=== PATIENT | female | born 1985 | race Caucasian/White ===

== ENCOUNTER 2025-02-02 22:41 | Emergency (ER) | payer OTHER, SELFPAY ==
[2025-02-02 22:48] VITALS: BP 135/73; PULSE 90; RESP 16; TEMP 36.7; O2SAT 98; BMI 37.8
--- NOTE | 2025-02-02 23:15 | PC.NURSE ---
Asssumed care of pt, presents with urine frequency, pt states approximately 1 hour prior to coming to ED, pt feeling pressure when urinating and frequently going to the restroom in small amounts, aaox4, nad, no pain just discomfort,
[2025-02-02 23:17] LABS: Hematocrit 36.3 % (37.0-47.0); Hemoglobin 12.6 g/dl (12.0-16.0); Imm Gran Pct Auto 0.2 % (0.0-0.4); MANUAL DIFF FLAG NO; Mean Corpuscular HGB Conc 34.7 g/dl (31.0-35.0); Mean Corpuscular Hemoglobin 28.1 pg (27.0-33.0); Mean Corpuscular Volume 80.8 fL (80.0-98.0); Platelet Count 417 X10*3/uL (160-400); Red Blood Count 4.49 X10*6/uL (4.20-5.50); White Blood Count 14.6 X10*3/uL (4.8-10.8)
[2025-02-02 23:18] LABS: Imm Gran Abs Auto 0.03 X10*3/uL (0.00-0.03); Lymphocytes Absolute Auto 3.9 X10*3/uL (1.2-4.9); NRBC Abs Auto 0.000 X10*3/uL (0.0-0.012); NRBC Pct Auto 0.0 /100WBC (0.0-0.2)
[2025-02-02 23:19] LABS: Appearance Urine Clear; Glucose Urine UA Negative (Negative); PH 8.5 (5.0-9.0); Specific Gravity - Urine 1.010 (1.005-1.025); UMIC TRIGGER UACC YES
[2025-02-02 23:23] LABS: UACC Culture Trigger YES
[2025-02-02 23:31] LABS: Alanine Aminotransferase 21 U/L (0-31); Albumin Level 4.1 g/dL (3.5-5.0); Alkaline Phosphatase 108 U/L (39-117); Anion Gap 10 (12-20); Aspartate Amino Transferase 19 U/L (5-31); Blood Urea Nitrogen 15 mg/dL (9-16); Calcium 9.2 mg/dL (8.4-10.2); Carbon Dioxide 24 mmol/L (22-29); Chloride 108 mmol/L (96-108); Creatinine Clr Calc Pharmacy 113.3; Estimated Glomerular Filt Rate > 60; Potassium 4.0 mmol/L (3.3-5.1); Sodium 138 mmol/L (135-145); Total Protein 7.1 g/dL (6.5-8.0)
--- NOTE | 2025-02-02 23:38 | ED.FEMALEGU ---
HPI - Female Genitourinary General Chief complaint: Urogenital-Female Stated complaint: ?UTI Time Seen by Provider: 02/02/25 23:32 Source: patient, RN notes reviewed and old records reviewed Mode of arrival: ambulatory Limitations: no limitations History of Present Illness ED Provider: Agustina MEYER Narrative: 39-year-old female presents for evaluation of burning with urination. She reports her symptoms started a few hours prior to arrival. She denies any flank pain, fevers, chills pain She reports that she feels like she has to urinate frequently but ?only a little bit comes out. ? She has been monogamous with 1 sexual partner. Denies any vaginal bleeding or discharge Related Data Previous Rx's ?Medication ?Instructions ?Recorded cefuroxime axetil 250 mg tablet 250 mg PO Q12H #9 tabs 02/02/25 Allergies Allergy/AdvReac Type Severity Reaction Status Date / Time No Known Allergies Allergy Verified 02/02/25 22:53 pt states no food/medication Allergy Unknown Unknown Uncoded 02/02/25 22:53 a Review of Systems Constitutional: Constitutional: Denies anorexia, Denies body ache(s), Denies chills and Denies fever(s) Eyes: Eyes: Denies blurry vision Cardiovascular: Cardiovascular: Denies chest pain Gastrointestinal: Gastrointestinal: Denies abdominal pain, Denies nausea and Denies vomiting Genitourinary: Genitourinary: Denies hematuria, Reports difficulty voiding, Reports post void dribbling, Reports dysuria, Denies pelvic pain, Reports urinary hesitancy, Reports urinary urgency, Denies vaginal discharge and Denies vaginal pruritus Musculoskeletal: Musculoskeletal: Denies back pain Physical Exam Vital Signs: Vital Signs: Last Vital Signs Temp 98.1 F 02/02/25 22:48 Pulse 90 02/02/25 22:48 Resp 16 02/02/25 22:48 BP 135/73 02/02/25 22:48 Pulse Ox 98 02/02/25 22:48 O2 Del Method Room Air 02/02/25 22:48 BMI result Body Mass Index 37.8 Const: General: healthy appearing, comfortable, no acute distress, alert and awake Nutritional Appearance: well nourished Orientation/consciousness: patient oriented x3 HEENT: Head: Yes normocephalic and Yes atraumatic Eyes: Eyelids: Yes eyelids normal Conjunctivae: conjunctivae normal Sclerae: sclerae normal Corneas: corneas normal Pupils: Equal, round and reactive pupils present EOM: EOMs intact bilaterally Neck: Neck: Yes full ROM Resp: Effort & Inspection: normal respiratory effort, able to speak in complete sentences and not labored Skin: General skin exam: elasticity normal Neuro: General: patient oriented x3 Cranial nerves: Yes Equal, round and reactive pupils present and Yes Bilaterally intact EOM present Cognition (Neuro): normal cognition Medical Decision Making Medical Decision Making [facility] Narrative: 39-year-old female presents for evaluation of UTI symptoms. Her urinalysis is consistent with a UTI. [place] [address] but looking back in her history she does have a chronic leukocytosis. She has no fevers or chills in his symptoms with a started a few hours ago. I have a low suspicion for systemic infection. We will treat with cefuroxime b.i.d. x5 days. She denies any concern for sexually transmitted infections. Renal function is within normal limits Differential Diagnosis Differential Diagnoses: The differential diagnosis associated with the presentation includes UTI Cystitis Pyelonephritis Obstructive uropathy Lab Data [facility] Lab Attestation statement: I reviewed the patient's lab results. Mild leukocytosis. No significant anemia. The patient does have a chronic thrombocytosis. Electrolytes are within normal limits. 02/02/25 23:09 02/02/25 23:10 Labs: Lab Results 02/02/25 02/02/25 Range/Units 23:09 23:10 WBC 14.6 H (4.8-10.8) X10*3/uL RBC 4.49 (4.20-5.50) X10*6/uL Hgb 12.6 (12.0-16.0) g/dl Hct 36.3 L (37.0-47.0) % MCV 80.8 (80.0-98.0) fL MCH 28.1 (27.0-33.0) pg MCHC 34.7 (31.0-35.0) g/dl RDW 14.6 (11.0-16.0) % Plt Count 417 H (160-400) X10*3/uL MPV 10.4 (9.4-12.3) fL Immature Gran % (Auto) 0.2 (0.0-0.4) % Neut % (Auto) 61.0 (45-73) % Lymph % (Auto) 27.0 (20-40) % [place] % (Auto) 8.7 (2-11) % Eos % (Auto) 2.3 (0-4) % Baso % (Auto) 0.8 (0-2) % Lymph # (Auto) 3.9 (1.2-4.9) X10*3/uL [place] # (Auto) 1.3 H (0.1-1.2) X10*3/uL Eos # (Auto) 0.3 (0.0-0.4) X10*3/uL Baso # (Auto) 0.1 (0.0-0.2) X10*3/uL Abs Immat Gran (auto) 0.03 (0.00-0.03) X10*3/uL Absolute Neuts (auto) 8.9 H (2.0-8.3) x10*3/uL Absolute Nucleated RBC 0.000 (0.0-0.012) X10*3/uL Nucleated RBC % (auto) 0.0 (0.0-0.2) /100WBC Sodium 138 (135-145) mmol/L Potassium 4.0 (3.3-5.1) mmol/L Chloride 108 (96-108) mmol/L Carbon Dioxide 24 (22-29) mmol/L Anion Gap 10 L (12-20) BUN 15 (9-16) mg/dL Creatinine 0.67 (0.5-1.4) mg/dL Estim Creat Clear Calc 113.3 Estimated GFR > 60 Random Glucose 95 (60-115) mg/dL Calcium 9.2 (8.4-10.2) mg/dL Total Bilirubin 0.3 (0.0-1.0) mg/dL AST 19 (5-31) U/L ALT 21 (0-31) U/L Alkaline Phosphatase 108 (39-117) U/L Total Protein 7.1 (6.5-8.0) g/dL Albumin 4.1 (3.5-5.0) g/dL Urine Color Yellow Urine Appearance Clear Urine pH 8.5 (5.0-9.0) Ur Specific [place] 1.010 (1.005-1.025) Urine Protein 30 (1+) H (Neg-Trace) mg/dL Urine Glucose (UA) Negative (Negative) mg/dL Urine Ketones Negative (Negative) mg/dL Urine Blood Small (1+) H (Negative) Urine Nitrite Negative (Negative) Ur Leukocyte Esterase Large (3+) H (Negative) Urine RBC >20 H (0-2) /HPF Urine WBC >50 H (0-5) /HPF Ur Squamous Epith Cells 0-2 (0-2) /HPF Urine Bacteria None Seen (None Seen) Hyaline Casts 0-2 (0-2) /LPF Discharge Plan Discharge Clinical Impression: Urinary tract infection Patient Disposition: Home, Self-Care Instructions: Urinary Tract Infection in Women (ED) Additional Instructions: Your urinalysis was consistent with a UTI. Take cefuroxime twice daily for 5 days, your 1st dose was given in the ER. Drink lots of fluids and follow up with your primary doctor Prescriptions: New cefuroxime axetil 250 mg tablet 250 mg PO Q12H Qty: 9 0RF Print Language: German
--- OUTSIDE RECORDS SUMMARY | 2025-02-02 23:55 | XMS_ITS | Clinical Summary ---
Author Organization [facility] Address [address] [place] [phone] Phone Care Team Providers Care Industrial Gas Servicer Name Role Phone Issa Malave MD Primary Care Provider [phone] Social History Tobacco Use Types Packs/Day Years Used Date Smoking Tobacco: Never Assessed Education Answer Date Recorded Are you interested in more education? Not on joel e 04/14/2024 Are you concerned about learning? Not on file 04/14/2024 No 04/14/2024 No 04/14/2024 Digital Access Answer Date Recorded No 04/14/2024 No 04/14/2024 Reliable internet access at home? Not on file 04/14/2024 Device with a working camera? Not on file Comments Unknown Sex and Gender Information Value Date Recorded Sex Assigned at Not on file Legal Sex Female 9:10 PM EDT Gender Identity Not on file Sexual Orientation Not on file Plan of Treatment Health Maintenance Due Date Last Done Comments Adult Td,Tdap Booster 1987 DEPRESSION SCREENING 1999 SMOKING Hx and SMOKELESS TOB ACCO SCREENING 2000 HEPATITIS C SCREENING 2005 HIV ONE-TIME SCREENING (18-6 5 YEARS) 2005 PAP SMEAR 2008 INFLUENZA VACCINE (#1) 2024 COVID-19 VACCINE (2023-2 5 season) 2025 HEPATITIS A VACCINES Aged Out No long er eligible based on patient's age to complete this topic HIB VACCINES Aged Out No longer eligi ble based on patient's age to complete this topic MENINGOCOCCAL VACCINES (ACWY) Aged Out No longer eligible based on patient's age to complete this topic MENINGOCOCCAL VACCINES (B) Aged Out N o longer eligible based on patient's age to complete this topic PNEUMOCOCCAL VACCINES (0-49 years) Aged Out No longer eligible based on patient's age to complete this topic Medical Devices Not on file Care Teams Industrial Gas Servicer Relationship Specialty Start Date End Date Issa Malave MD [address] [place] [id number] PCP - General 02/25/17 Additional Source Comments The information contained in this document represents components of the legal health record. It is not the complete legal health record.[facility]
--- OUTSIDE RECORDS SUMMARY | 2025-02-02 23:55 | XMS_ITS | Encounter Summary ---
Author Organization [facility] Address [address] [place] [address] Care Team Providers Care Brakeshoe Repairer Name Role Phone Issa Malave MD Primary Care Provider [phone] Reason for Visit * Reason Onset Date Comments TEST RESULTS 03/22/2016 Encounter Details Date Type Department Care Team Description 03/22/2016 Telephone Adult Medicine [address] [id number] Susi Horton PA-C TEST RESULTS Social History Tobacco Use Types Packs/Day Years Used Date Smoking Tobacco: Never Smokeless Tobacco: Never Alcohol Use Standard Drinks/Week Comments No 0 (1 standard drink = 0.6 oz pur e alcohol) Sex Assigned at Date Recorded Not on file Job Start Date Occupation Industry Not on file Not on file Not on file documented as of this encounter Miscellaneous Notes * Telephone Encounter - Tara Heath - 03/22/2016 3:12 PM EST Inform patient: ANY URGENT OR ABNORMAL RESULTS WIILL RESULT IN A CALL BACK TO THE PATIENT AZUCENA. Type of test: :X-ray of right foot Date test was performed:03/21/16 Where was the test performed: [facility] – [place] Who ordered this test?: Susi Horton Is the doctor here today?: YES Can the message wait until the doctor returns?: NO IF PATIENT'S PCP IS NOT IN INSTRUCT PATIENT THAT THEY WILL RECEIVE A CALL BACK WHEN THE PCP IS IN THE OFFICE NEXT. documented in this encounter Plan of Treatment Not on file documented as of this encounter Visit Diagnoses Not on filedocumented in this encounter Care Teams Brakeshoe Repairer Relationship Specialty Start Date End Date Issa Malave MD [address] [place] [id number] PCP - General 07/05/08 documented as of this encounter
--- OUTSIDE RECORDS SUMMARY | 2025-02-02 23:55 | XMS_ITS | Encounter Summary ---
Author Organization [facility] Address [address] [place] [address] Care Team Providers Care Counselor Supervisor Name Role Phone Issa Malave MD Primary Care Provider [phone] Encounter Details Date Type Department Care Team Description 01/11/2012 Night Triage Doc Medical Records [address] [place] [address] Abstract, Provider Social History Tobacco Use Types Packs/Day Years Used Date Smoking Tobacco: Never Alcohol Use Standard Drinks/Week Comments No 0 (1 standard drink = 0.6 oz pur e alcohol) Sex Assigned at Date Recorded Not on file Job Start Date Occupation Industry Not on file Not on file Not on file documented as of this encounter Plan of Treatment Not on file documented as of this encounter Visit Diagnoses Not on filedocumented in this encounter Care Teams Counselor Supervisor Relationship Specialty Start Date End Date Issa Malave MD [address] [place], [place] [phone] PCP - General 07/05/08 documented as of this encounter
--- OUTSIDE RECORDS SUMMARY | 2025-02-02 23:55 | XMS_ITS | Encounter Summary ---
Author Organization [facility] Address [address] [place] [address] Care Team Providers Care Java Developer Analyst Name Role Phone Issa Malave MD Primary Care Provider [phone] Encounter Details Date Type Department Care Team Description 11/28/2013 Night Triage Doc Medical Records [address] [place] [address] Abstract, Provider Social History Tobacco Use Types [...] on filedocumented in this encounter Care Teams Java Developer Analyst Relationship Specialty Start Date End Date Issa Malave MD [address] [place], [place] [phone] PCP - General 07/05/08 documented as of this encounter
--- OUTSIDE RECORDS SUMMARY | 2025-02-02 23:55 | XMS_ITS | Encounter Summary ---
Author Organization [facility] Address [address] [place] [address] Care Team Providers Care Rn Field Name Role Phone Issa Malave MD Primary Care Provider [phone] Encounter Details Date Type Department Care Team Description 01/05/2016 [facility] Medical Records [address] [place] [address] Abstract, Provider Social History Tobacco Use Types [...] on filedocumented in this encounter Care Teams Rn Field Relationship Specialty Start Date End Date Issa Malave MD [address] [place], [place] [phone] PCP - General 07/05/08 documented as of this encounter
--- OUTSIDE RECORDS SUMMARY | 2025-02-02 23:55 | XMS_ITS | Clinical Summary ---
Author Organization [address] Address [address] [place] [address] Phone Care Team Providers Care General Manager Name Role Phone Issa Malave MD Primary Care Provider [phone] Allergies Active Allergy Reactions Criticality Noted Date Comments Other 07/01/2012 Food Allergy Going for testing Medications ascorbic acid (VITAMIN C) 500 mg tablet Take 500 mg by mouth daily. Active B complex tablet Take by mouth daily. Active cholecalciferol (VITAMIN D-3) 25 mcg (1,000 unit) capsule Take by mouth daily. Active Active Problems Problem Noted Date Diagnosed Date Idiopathic scoliosis and kyphoscoliosis 05/06/20 24 Overview (05/06/2024): 10 deg 2001, 19 deg 03/16 Female pelvic inflammatory disease 06/25/2021 Overview (05/06/2024): Last Assessment & Plan: Patient instructed to complete the entire course of antibiotics. She was given a prescription for Zofran for nausea associated with the Doxycycline. Discussed that PID can cause scarring of the fallopian tubes, which can cause difficulty becoming and can increase the risk of ectopic . No further follow-up needed unless symptoms return. RTO for annual exam. All questions answered. Breakthrough bleeding 06/15/2021 Overview (05/06/2024): Last Assessment & Plan: Urine test negative. Discussed normal frequency and length of menses Reviewed that yeast infection may have been the cause of the brief vaginal bleeding. Counseled on the effects of stress, changes in sleep, diet, and exercise on the endocrine system GC/CT done today to r/o STI Will proceed with expectant management at this time. If symptoms continue for >3 months patient to return for further evaluation. LLQ pain 06/15/2021 Overview (05/06/2024): Last Assessment & Plan: Discussed potential causes of pelvic pain with the patient including infections, , ovarian cysts, endometriosis, interstitial cystitis, irritable bowel, and MSK etiologies. Pelvic US ordered STAT today to r/o ovarian torsion. GC/CT done again today to r/o infection. Discussed functional ovarian cysts Discussed non-contraceptive benefits of BC, patient declines at this time. Discussed with patient that I am suspicious that she may have PID as she has significant cervical motion tenderness. I would like to get the stat ultrasound to r/o torsion and if negative, will plan to treat for PID empirically. Patient in agreement. All questions answered. Severe obesity (BMI 35.0-39. 9) with comorbidity ([facility] V24, [facility] V28) 05/15/2019 Assessment & Plan (05/19/2024 6:43 PM EST): Patient is to continue following up with her weight management program. Informed patient she is cleared for nutritional and dietary weight loss program. Orders: Lipid panel with reflex to direct LDL; Future Thyroid stimulating hormone with reflex to free t4 and free t3; Future Vitamin B12; Future Vitamin D 25 hydroxy; Future CBC and differential; Future Comprehensive metabolic panel; Future Folate; Future Hemoglobin A1c; Future Thrombocytosis 05/22/2016 Cyst of right ovary 05/16/2016 Eczema 06/08/2012 Epigastric pain 07/20/2009 Overview (05/06/2024): h pylori 9-) other blood test (-), US in ER (-) Attention deficit hyperactivity disorder (ADHD) 05/14/2006 Overview (05/06/2024): adderall 1999, changed to adderall xr 2002 Learning disability 05/14/2006 Overview (05/06/2024): Language-based Learning Disability Immunizations Name Administration Dates Next Due DTP 03/26/1993, 2,10/25/1991,08/24 [id number] (Pentacel) 2mo to less than 5yo 08/25/1991 Hepatitis B Pediatric (Enger ix B; Recombivax HB) to less than 20 yo 06/27/1999,01/24/1999,12/26/1998 Influenza Quadravalent, MDCK , 0.5ml, preservative free (Flucelvax) 6mo and older 02/24/2020,06/24/2018 Influenza trivalent, MDCK, 0 .5mL, preservative free (Flucelvax) 6mo and older 02/07/2024 Influenza trivalent, with pr eservative (Fluzone; Afluria) 6mo and older 01/25/2016,02/25/2012,02/09/2010 MMR, measles mumps and rubel la Live (Priorix; M-M-R II) 12mo and older 01/06/1998,08/25/1991 Meningococcal MCV4P 03/13/2005 OPV 03/26/1993, 2,10/25/1991,08/24 PPD Test 05/22/2016, 6,11/07/2004,05/18,05/26/2002 Td Tetanus diptheria (Tdvax) 7yo and older 07/11/2022,01/06/1998 Tdap Tetanus diptheria acell ular pertussis (Boostrix; Adacel) 7yo and older 04/10/2010 Varicella live (Varivax) 12m o and older 1990 Surgical History Surgery Date Site/Laterality Comments WISDOM TOOTH EXTRACTION PROCEDURE: HISTORICAL WISDOM TEETH EXTRACTION SECTION PROCEDURE: HISTORICAL DELIVERY Medical History Medical History Date Comments Varicella without mention of complication DX:Varicella without mention of complication; COMMENT: age 5 Thrombocytosis 05/22/2016 DX:Thrombocytosi s Family History Medical History Relation Name Comments Other: brain tumor Daughter 1 chemo/rad -inoperable, Ann Baptiste, passed age 7 Hypertension Father Breast cancer Other 1 Neg Hx Colon cancer Other 2 Neg Hx Other: CA Ovary, Cervical Other 3 Ne g Hx Other: gall blader disease Sister 1 Relation Name Status Comments Brother Alive Daughter 1 Daughter 2 Alive 2008; Kaela; brainstem tumor dx'd 2012 Father Alive Mother Alive Other 1 Other 2 Other 3 Sister 1 Sister 2 Alive Sister 3 Alive Son Alive Social History Tobacco Use Types Packs/Day Years Used Date Smoking Tobacco: Never Smokeless Tobacco: Never Alcohol Use Standard Drinks/Week Comments No 0 (1 standard drink = 0.6 oz pur e alcohol) Comments Unknown Sex and Gender Information Value Date Recorded Sex Assigned at Not on file Legal Sex Female 4:33 AM EST Gender Identity Not on file Sexual Orientation Not on file Obstetrics History Last Filed Vital Signs Vital Sign Reading Time Taken Comments Blood Pressure 130/86 05/19/2024 8:16 AM EST Pulse 97 05/19/2024 8:16 AM EST Temperature 36.2 C (97.1 F) 05/19/2024 8:16 AM EST Respiratory Rate 16 05/19/2024 8:16 AM EST Oxygen Saturation 99% 05/19/2024 8:16 AM EST Inhaled Oxygen Concentration - - Weight 91.8 kg (202 lb 6.4 oz) 05/19/2024 8:16 A M EST Height 152.4 cm (5') 05/19/2024 8:16 AM EST Body Mass Index 39.53 05/19/2024 8:16 AM EST Plan of Treatment Health Maintenance Due Date Last Done Comments Cervical Cancer Screening: Pap Smear 06/12/2021 06/12/2018, 06/12/2018, 06/12/2018 Social Influencers of Health Screening 04/20/2022 Influenza Vaccine (#1) 2025 4, 02/24/2020, 03/09/2019, Additional history exists Cholesterol Screening (Lipid Panel) 05/19/2029 05/19/2024, 07/11/2022 DTaP,Tdap,and Td Vaccines (8 - Td or Tdap) 07/11/2032 07/11/2022, 04/10/2010, 01/06/1998, Additional history exists Varicella Vaccines Aged Out 1990 No longer eligible based on patient's age to complete this topic HIB Vaccines Completed 08/25/1991, 08/25/1991 IPV Vaccines Completed 03/26/1993, 12/10, 10/25/1991, Additional history exists MMR Vaccines Completed 01/06/1998, 08/25/1991 Hepatitis B Vaccines Completed 06/27/1999, 01/24/1999, 12/26/1998 Meningococcal ACWY Vaccine Completed 03/13/2005 HIV Screening Completed 06/10/2018 Hepatitis C Screening Completed 06/10/2018 Depression Screening Completed 05/19/2024 COVID-19 Vaccine Discontinued HPV Vaccines Aged Out No longer eligi ble based on patient's age to complete this topic Hepatitis A Vaccines Aged Out No long er eligible based on patient's age to complete this topic Meningococcal B Vaccine Aged Out No l onger eligible based on patient's age to complete this topic Pneumococcal Vaccine: Pediatrics (0 to 5 Years) and At-Risk Patients (6 to 49 Years) Aged Out No longer eligible based on patient's age to complete this topic RSV Immunization Patients Under 20 months Aged Out No longer eligible based on patient's age to complete this topic Procedures Procedure Name Priority Date/Time Associated Diagnosis Comments LIPID PANEL WITH REFLEX TO DIRECT LDL Routine 05/19/2024 9:09 AM EST Encounter for screening for cardiovascular disorders PAP SMEAR Routine 06/12/2018 HEPATITIS C SCREENING Routine 06/10/2018 HIV SCREENING Routine 06/10/2018 from Last 3 Months or Most Recently Relevant to Health Maintenance Results * (ABNORMAL) Lipid panel with reflex to direct LDL (05/19/2024 9:09 AM EST) Cholesterol 209(H) 0 - 200 mg/dL LAB CHEMISTRY METHOD 05/19/2024 1:[address] [facility] Triglycerides 97 0 - 150 mg/dL LAB CHEMISTRY METHOD 05/19/2024 1:[address] [facility] HDL 56 >=40 mg/dL LAB CHEMISTRY METHOD 05/19/2024 1:[address] [facility] LDL Calculated 134(H) 0 - 100 mg/dL LAB CHEMISTRY METHOD 05/19/2024 1:12 PM [facility] VLDL Cholesterol Jez 19.4 mg/dL LAB CHEMISTRY METHOD 05/19/2024 1:[address] [facility] Non HDL Chol. (LDL+VLDL) 153(H) <145 mg/dL LAB CHEMISTRY METHOD 05/19/2024 1:[address] [facility] Chol/HDL Ratio 3.7 0.0 - 4.4 LAB CHEMISTRY METHOD 05/19/2024 1:[address] [facility] Blood Venous blood specimen / Unknown Venipuncture / Unknown 05/19/2024 9:09 AM EST 05/19/2024 9:09 AM EST Shayan Dickerson [employer] LAB BLOOD ORDERABLES Final R esult [facility]) [facility] [address] [place] [address], [place] [phone] * Pap smear (06/12/2018) 06/12/2018 Narrative HISTORICAL TESTING LAB RESULTING AGENCY - 06/16/2018 11:57 AM EST [id number] THINPREP PAP, IMAGED: NEGATIVE FOR SQUAMOUS INTRAEPITHELIAL LESION AND MALIGNANCY . KAREN RANGEL(ASCP) (CASE ELECTRONICALLY SIGNED 06 16 2018) RESULT OF APTIMA HIGH RISK HPV ASSAY: HIGH RISK HPV: NEGATIVE (SEROTYPES 16,18,31,33,35,39,45,51,52,56,58,59,66,68) COMPLETED ON 2018-06-16 ADEQUACY: SATISFACTORY ENDOCERVICAL/TRANSFORMATION ZONE COMPONENT PRESENT. SOURCE: THINPREP PAP HPV ANY DX: REFLEX 16 AND 18, CERVICAL, IMAGED CLINICAL INFORMATION: HPV ANY DIAGNOSIS. Z12.4, Z01.419 us Ashlyn ANDERSONM LAB CYTOLOGY ORDERABLES Final R esult HISTORICAL TESTING LAB RESULTING AGENCY * HIV Screening (06/10/2018) HIV Screening Abstracted Historical Provider HEALTH MAINTENANCE Final Result * Hepatitis C Screening (06/10/2018) HM Hepatitis C Screening Abstracted Historical Provider HEALTH MAINTENANCE Final Result from Last 3 Months or Most Recently Relevant to Health Maintenance Insurance [place] [facility] Care Teams General Manager Relationship Specialty Start Date End Date Issa Malave MD [address] [place] [address] PCP - General 11/17/07
--- OUTSIDE RECORDS SUMMARY | 2025-02-02 23:55 | XMS_ITS | Encounter Summary ---
Author Organization [facility] Address [address] [place] [address] Care Team Providers Care Development Editor Name Role Phone Issa Malave MD Primary Care Provider [phone] Encounter Details Date Type Department Care Team Description 02/12/2009 Night Triage Doc Medical Records [address] [place] [address] Abstract, Provider Social History Tobacco Use Types [...] on filedocumented in this encounter Care Teams Development Editor Relationship Specialty Start Date End Date Issa Malave MD [address] [place], [place] [phone] PCP - General 07/05/08 documented as of this encounter
--- OUTSIDE RECORDS SUMMARY | 2025-02-02 23:55 | XMS_ITS ---
Author Name [facility] Organization Unknown Care Team Organization Name Specialty Phone Email Start Date End Da jodee [facility] Malave Primary Care 03/19/2022 12/29/2023
--- OUTSIDE RECORDS SUMMARY | 2025-02-02 23:55 | XMS_ITS | Encounter Summary ---
Author Organization [facility] Address [address] [place] [address] Care Team Providers Care Director Of Services Name Role Phone Issa Malave MD Primary Care Provider [phone] Encounter Details Date Type Department Care Team Description 08/19/2013 Cardiology Procedure Cardiology - [address] [address] Social History Tobacco Use Types Packs/Day Years Used Date Smoking Tobacco: Never Smokeless Tobacco: Never Alcohol Use Standard Drinks/Week Comments No 0 (1 standard drink = 0.6 oz pur e alcohol) Sex Assigned at Date Recorded Not on file Job Start Date Occupation Industry Not on file Not on file Not on file documented as of this encounter Procedure Notes * Marco Nix - 08/19/2013 7:43 AM EDT Patient Name: RUPALI BOLANOS [facility] Cardiology Department Date of Service: HOLTER MONITOR The indication is syncope. The predominant rhythm is normal sinus rhythm. The minimum heart rate is 68. The average heart rateis 94 beats per minute. The maximum heart rate is 155 beats per minute. There were rare PACs and PVCs. No runs of atrial fibrillation, flutter or ventricular tachycardia were seen. No symptoms were reported. This patient is 28 years old, but the average heart rate is elevated at 94 beats per minute. IMPRESSION: No significant arrhythmias, no significant symptoms, but an average heart rate that is mildly elevated for this patient's age. Marco Nix MD cc: / documented in this encounter Plan of Treatment Not on file documented as of this encounter Visit Diagnoses Not on filedocumented in this encounter Care Teams Director Of Services Relationship Specialty Start Date End Date Issa Malave MD [address] [place] [id number] PCP - General 07/05/08 documented as of this encounter
--- OUTSIDE RECORDS SUMMARY | 2025-02-02 23:55 | XMS_ITS | Encounter Summary ---
Author Organization [facility] Address [address] [place] [address] Care Team Providers Care Health Education Specialist Name Role Phone Issa Malave MD Primary Care Provider [phone] Encounter Details Date Type Department Care Team Description 03/22/2015 Release of Information Medical Records [address] [place] [address] Abstract, Provider Social History Tobacco Use Types [...] on filedocumented in this encounter Care Teams Health Education Specialist Relationship Specialty Start Date End Date Issa Malave MD [address], [place] [id number] PCP - General 07/05/08 documented as of this encounter
--- OUTSIDE RECORDS SUMMARY | 2025-02-02 23:55 | XMS_ITS | Encounter Summary ---
Author Organization [facility] Address [address] [place] [address] Care Team Providers Care Practice Business Asst Name Role Phone Issa Malave MD Primary Care Provider [phone] Encounter Details Date Type Department Care Team Description 05/21/2018 Pt. Non Urgent Medic al Question Adult Medicine [address] [address] Nehal Sorto MD Social History Tobacco Use Types Packs/Day Years Used Date Smoking Tobacco: Never Smokeless Tobacco: Never Alcohol Use Standard Drinks/Week Comments No 0 (1 standard drink = 0.6 oz pur e alcohol) Sex Assigned at Date Recorded Not on file Job Start Date Occupation Industry Not on file Not on file Not on file documented as of this encounter Progress Notes * Johnna Torres M.A. - 05/21/2018 4:55 PM ESTFrom: Rupali Aguilar Bolanos To: Nehal Schreer MD Sent: 05/21/2018 4:49 PM EST Subject: Results? Hi i just wanted to know if my blood counts gave any news for the unexplained rash? documented in this encounter Plan of Treatment Not on file documented as of this encounter Visit Diagnoses Not on filedocumented in this encounter Care Teams Practice Business Asst Relationship Specialty Start Date End Date Issa Malave MD [address] [place] [id number] PCP - General 07/05/08 documented as of this encounter
[2025-02-03 00:30] VITALS: BP 135/73; PULSE 90; RESP 16; TEMP 36.7; O2SAT 98
== END 2025-02-03 00:30 | disposition home or self-care (01) ==
PROVIDERS: Emergency Provider Student in an Organized Health Care Education/Training Program; PCP Internal Medicine
DX: N39.0 Urinary tract infection, site not specified (principal)
CPT/HCPCS: 36415; 80053; 81001; 85025; 87086; 87088; 87147; 87186; 99283; 99284

== ENCOUNTER 2025-03-27 20:18 | Inpatient (IN) | payer OTHER, SELFPAY ==
--- NOTE | ~2025-03-27 | FL_ITS ---
EXAMINATION: FL GUIDANCE ONLY HISTORY: ERCP COMPARISON: Correlation is made with an abdominal ultrasound dated 03/27/2025. TECHNIQUE: Fluoroscopy time: 2 minutes, 11 seconds. Cumulative Dose: 34.60 mGy. DAP: 1142.52 uGym2 Images: 7. FINDINGS: Fluoroscopic spot films from an ERCP demonstrate a normal caliber common bile duct. A rounded filling defect may represent an air bubble. The final film demonstrates a stent in place. FL/FL guidance in OR IMPRESSION: Fluoroscopy during procedure. Please see procedure report for additional information. Electronically signed by: Manjit Gilliland MD 04/01/2025 07:22 AM JEAN
--- NOTE | ~2025-03-27 | US_ITS ---
CLINICAL HISTORY: epigastric pain rad to back --- Additional Notes or Special Instructions: look at GB, ducts, liver, pancreas US abdomen limited Comparison: None provided Findings: The visualized pancreas is normal. The aorta and inferior vena cava are normal caliber. The liver is normal in size and echotexture. There is no intrahepatic bile duct dilatation. The common duct is 2 mm in diameter. Mildly distended gallbladder with a 2.6 cm impacted stone at the neck. Moderate amount of sludge is noted. No sonographic Luevano's sign. Ring down artifacts at the fundus suggestive of adenomyomatosis. The main portal vein is antegrade. No ascites. IMPRESSION: Impacted 2.6 cm stone in the neck. No significant pericholecystic fluid, or wall thickening. No sonographic Luevano's sign. Adenomyomatosis. This document has been electronically signed by: Rach Phillips MD on 03/27/2025 22:19:28
--- NOTE | 2025-03-27 20:21 | ED.GENADULT ---
HPI - General Adult General Chief complaint: Abdominal Pain Stated complaint: Stomach Pain Time Seen by Provider: 03/27/25 20:38 History of Present Illness ED Provider: roxanna HPI narrative: Author / Clinician: Nabeel Wilde MD Subjective Chief Complaint: My belly's been hurting for four days. History of Present Illness: The patient presents with abdominal pain that has been ongoing for four days. The pain worsened yesterday morning after eating a cheese sandwich. The pain is located in the right upper abdomen and is reported to worsen after eating. Associated symptom includes vomiting. The patient has a known history of gallstones. Review of Systems: ? Gastrointestinal: Positive for abdominal pain and vomiting. No additional systems reviewed during this encounter. Objective Vital Signs: Physical Exam: Abdomen: Tenderness to palpation in the right upper quadrant. No other TTP Laboratory data relevant for visit: Imaging data relevant for visit: Assessment & Plan The patient is a known gallstone patient presenting with acute right upper quadrant abdominal pain and vomiting, likely biliary in origin. Further evaluation is warranted. Problem #1: Right Upper Quadrant Abdominal Pain / History of Gallstones Assessment: Acute RUQ abdominal pain with associated vomiting in a patient with known gallstones. Physical exam significant for RUQ tenderness. Plan: - Order abdominal ultrasound to evaluate gallbladder and biliary tract. - Obtain basic laboratory work (CBC, CMP, lipase as indicated). - Administer pain medication as needed for comfort. - Reassess once imaging and laboratory results are available and determine further management. Related Data Home Medications ?Medication ?Instructions ?Recorded ?Confirmed acetaminophen 325 mg capsule 325 mg PO QID PRN Pain 03/28/25 03/28/25 ascorbic acid (vitamin C) 1,000 mg 1,000 mg PO DAILY 03/28/25 03/28/25 tablet (Vitamin C) ibuprofen 200 mg tablet 200 mg PO Q6H PRN Pain 03/28/25 03/28/25 Allergies Allergy/AdvReac Type Severity Reaction Status Date / Time No Known Allergies Allergy Verified 03/29/25 11:01 [facility] Past Medical History Medical History (Updated 03/29/25 @ 11:01 by Cyndy Bailey RN) History of seizures as a child Surgical History (Updated 03/29/25 @ 11:00 by Cyndy Bailey RN) Hx of wisdom tooth extraction Hx of section Social History Social History Household Members: Family Housing: House Are you a primary day care home mother to a significant other at home: No Do you presently have visiting nurse or other home services: No Unable to assess alcohol history related to: Unknown Alcohol intake: never Patient Tobacco Use Status: Never used Tobacco Smoked in Last 30 Days: No Use of substances other than those prescribed or required for medical reasons: No Currently Displaying Signs/Symptoms of Drug Intoxication Withdrawal: No Have you been hit, kicked, punched, or otherwise hurt by someone within the past year? If so, by whom?: No Do you feel safe in your current relationship?: Yes Is there a partner from a previous relationship who is making you feel unsafe now?: No Are you made to feel afraid or neglected: No Are you DNR?: No Advance Directives: No Advance Directives Information Provided: No Do you have a plan to hurt others: No Plan Recently lost weight without trying: No How much weight loss: Not applicable Eating poorly because of decreased appetite: No Nutrition screen score: 0 Nutrition Risks: No Nutritional Risk Patient : No FDLMP: 3 weeks ago : No Poor oral hygiene: No service: No Physical Exam ED Vital Signs: Vital Signs - 24 hr 03/27/25 20:22 Temperature 98.1 F Pulse Rate 101 H Respiratory Rate 20 Blood Pressure 139/88 Pulse Oximetry 99 Oxygen Delivery Method Room Air BMI result Body Mass Index 38.4 Course Course Course Narrative: This is a Rapid Medical Examination (RME) performed by Elyssa Anthony PA-C in triage. Full HPI, ROS, assessment and treatment plan per primary provider in the Main ED. Hx: 39 yo F here for eval of intermittent epigastric pain radiating to her back with eating. +N/V. taking motrin at home w/ temporary relief. Plan: labs, US Medications Administered Generic Name Dose Route Start Last Admin Trade Name Freq PRN Reason Stop Dose Admin Acetaminophen 650 mg 03/27/25 22:41 03/28/25 07:51 Acetaminophen 325 Mg Tablet PO 650 mg Q6H PRN Administration Pain, Mild 1-3,fever,headache Sodium Chloride 1,000 mls @ 100 mls/hr 03/27/25 22:45 03/29/25 07:54 Ns IVCONT 100 mls/hr .Q10H WENDY Administration Piperacillin Sod/Tazobactam 50 mls @ 100 mls/hr 03/28/25 08:00 03/29/25 08:25 Sod 3.375 gm/ Sodium Chloride IV Infused Q6H WENDY Infusion Lactated Ringer's 1,000 mls @ 100 mls/hr 03/29/25 10:30 03/29/25 10:53 Lr IVCONT 100 mls/hr .Q10H WENDY Administration Ondansetron HCl 4 mg 03/27/25 22:41 03/29/25 00:28 Ondansetron Hcl 4 Mg/2 Ml Vial IVPUSH 4 mg Q8H PRN Administration Nausea and Vomiting Sodium Chloride 3 ml 03/28/25 00:00 03/29/25 07:57 0.9 % Sodium Chloride Flush 3 Ml Syringe IVFLUSH Not Given QSHIFT WENDY Discontinued Medications Generic Name Dose Route Start Last Admin Trade Name Freq PRN Reason Stop Dose Admin Lactated Ringer's 1,000 mls @ 125 mls/hr 03/27/25 22:30 03/28/25 05:42 Lr IVCONT Infused .Q8H WENDY Infusion Ketorolac Tromethamine 10 mg 03/27/25 22:02 03/27/25 22:18 Ketorolac Tromethamine 15 Mg/Ml Vial IVPUSH 03/27/25 22:03 10 mg ONCE ONE Administration Morphine Sulfate 4 mg 03/27/25 22:02 03/27/25 22:20 Morphine Sulfate 4 Mg/Ml Cartridge IVPUSH 03/27/25 22:03 4 mg ONCE ONE Administration Protocol Medical Decision Making Medical Decision Making [facility] Narrative: Right upper quadrant tenderness with impacted gallstone no sepsis criteria met. Consultation: Discussion with on-call general surgeon who has accepted the patient for admission likely operation in the morning NPO status Differential Diagnosis Differential Diagnoses: The differential diagnosis associated with the presentation includes gastritis, PUD, biliary colic, hepatitis, hiatal hernia, enteritis Lab Data [facility] Lab Attestation statement: I reviewed the patient's lab results. 03/29/25 09:22 03/29/25 09:22 Labs: Lab Results 03/27/25 Range/Units 20:30 WBC 13.5 H (4.8-10.8) X10*3/uL RBC 5.00 (4.20-5.50) X10*6/uL Hgb 13.7 (12.0-16.0) g/dl Hct 41.5 (37.0-47.0) % MCV 83.0 (80.0-98.0) fL MCH 27.4 (27.0-33.0) pg MCHC 33.0 (31.0-35.0) g/dl RDW 13.9 (11.0-16.0) % Plt Count 486 H (160-400) X10*3/uL MPV 10.9 (9.4-12.3) fL Immature Gran % (Auto) 0.3 (0.0-0.4) % Neut % (Auto) 58.6 (45-73) % Lymph % (Auto) 28.8 (20-40) % Haralson % (Auto) 9.0 (2-11) % Eos % (Auto) 2.6 (0-4) % Baso % (Auto) 0.7 (0-2) % Lymph # (Auto) 3.9 (1.2-4.9) X10*3/uL Haralson # (Auto) 1.2 (0.1-1.2) X10*3/uL Eos # (Auto) 0.4 (0.0-0.4) X10*3/uL Baso # (Auto) 0.1 (0.0-0.2) X10*3/uL Abs Immat Gran (auto) 0.04 H (0.00-0.03) X10*3/uL Absolute Neuts (auto) 7.9 (2.0-8.3) x10*3/uL Absolute Nucleated RBC 0.000 (0.0-0.012) X10*3/uL Nucleated RBC % (auto) 0.0 (0.0-0.2) /100WBC Sodium 139 (135-145) mmol/L Potassium 4.1 (3.3-5.1) mmol/L Chloride 110 H (96-108) mmol/L Carbon Dioxide 22 (22-29) mmol/L Anion Gap 11 L (12-20) BUN 14 (9-16) mg/dL Creatinine 0.69 (0.5-1.4) mg/dL Estim Creat Clear Calc 111.0 Estimated GFR > 60 Random Glucose 94 (60-115) mg/dL Calcium 9.5 (8.4-10.2) mg/dL Magnesium 2.1 (1.6-2.6) mg/dL Total Bilirubin 0.2 (0.0-1.0) mg/dL Direct Bilirubin < 0.2 (0.0-0.5) mg/dL AST 6 (5-31) U/L ALT 20 (0-31) U/L Alkaline Phosphatase 116 (39-117) U/L Total Protein 7.6 (6.5-8.0) g/dL Albumin 4.2 (3.5-5.0) g/dL Lipase 28 (8-78) U/L Beta HCG, Quant < 2 mIU/mL Radiology Impression Discussion of test interpretation with radiology: I have reviewed the radiologist's reading. Independent Historian Clinical information obtained from an independent historian. History obtained from or confirmed by: Spouse Prescription Management I considered prescription management with: Pain Medication Discharge Plan Discharge Clinical Impression: RUQ abdominal pain, Impacted gallstone of gallbladder Patient Disposition: Admitted As Inpatient Interventions: Admission Worksheet (ED) Last Done: 03/28/25 04:48 Discharge Date/Time: 03/28/25 05:21
[2025-03-27 20:22] VITALS: BP 139/88; PULSE 101; RESP 20; TEMP 36.7; O2SAT 99; BMI 38.4
[2025-03-27 20:35] LABS: Hematocrit 41.5 % (37.0-47.0); Hemoglobin 13.7 g/dl (12.0-16.0); Imm Gran Abs Auto 0.04 X10*3/uL (0.00-0.03); Imm Gran Pct Auto 0.3 % (0.0-0.4); Lymphocytes Absolute Auto 3.9 X10*3/uL (1.2-4.9); MANUAL DIFF FLAG NO; Mean Corpuscular HGB Conc 33.0 g/dl (31.0-35.0); Mean Corpuscular Hemoglobin 27.4 pg (27.0-33.0); Mean Corpuscular Volume 83.0 fL (80.0-98.0); NRBC Abs Auto 0.000 X10*3/uL (0.0-0.012); NRBC Pct Auto 0.0 /100WBC (0.0-0.2); Platelet Count 486 X10*3/uL (160-400); Red Blood Count 5.00 X10*6/uL (4.20-5.50); White Blood Count 13.5 X10*3/uL (4.8-10.8)
[2025-03-27 20:55] LABS: Alanine Aminotransferase 20 U/L (0-31); Albumin Level 4.2 g/dL (3.5-5.0); Alkaline Phosphatase 116 U/L (39-117); Anion Gap 11 (12-20); Aspartate Amino Transferase 6 U/L (5-31); Blood Urea Nitrogen 14 mg/dL (9-16); Calcium 9.5 mg/dL (8.4-10.2); Carbon Dioxide 22 mmol/L (22-29); Chloride 110 mmol/L (96-108); Creatinine Clr Calc Pharmacy 111.0; Estimated Glomerular Filt Rate > 60; Lipase 28 U/L (8-78); Magnesium 2.1 mg/dL (1.6-2.6); Potassium 4.1 mmol/L (3.3-5.1); Sodium 139 mmol/L (135-145); Total Protein 7.6 g/dL (6.5-8.0)
--- OUTSIDE RECORDS SUMMARY | 2025-03-27 21:12 | XMS_ITS | Clinical Summary ---
Author Organization [facility] Address [address] [facility] [address] [place] [phone] Phone Care Team Providers Care Director Global Medical Affairs Name Role Phone Issa Malave MD Primary Care Provider [phone] Social History Tobacco Use Types Packs/Day Years [...] 2008 INFLUENZA VACCINE (#1) 2024 COVID-19 VACCINE (2024-2 6 season) 2025 HEPATITIS A VACCINES Aged Out No long er eligible based on patient's age to complete this topic HIB VACCINES Aged Out No longer eligi ble based on patient's age to complete this topic IPV VACCINES Aged Out No longer eligi ble [...] Medical Devices Not on file Care Teams Director Global Medical Affairs Relationship Specialty Start Date End Date Issa Malave MD [address] [place] [id number] PCP - General 02/25/17 Additional Source Comments The information contained in this document represents components of the legal health record. It is not the complete legal health record.[facility]
--- OUTSIDE RECORDS SUMMARY | 2025-03-27 21:12 | XMS_ITS | Clinical Summary ---
Author Organization [address] Address [address] [place] [address] Phone Care Team Providers Care Resident Care Assistant Name Role Phone Issa Malave MD Primary Care Provider [phone] Allergies Active Allergy Reactions Criticality Noted Date [...] Overview (05/06/2024): 10 deg 2001, 19 deg 11 Female pelvic inflammatory disease 06/25/2021 Overview (05/06/2024): [...] Severe obesity (BMI 35.0-39. 9) with comorbidity ([facility] V24, [facility] V28) 05/15/2019 Assessment & Plan (05/19/2024 6:43 [...] 05/14/2006 Overview (05/06/2024): Language-based Learning Disability Immunizations Immunization Administration Dates Next Due DTP 03/26/1993, 2,10/25/1991,08/24 [id number] (Pentacel) 2mo to less than 5yo 08/25/1991 [...] Health Maintenance Due Date Last Done Comments HPV Vaccines (1 - 3-dose SCDM series) 2014 Cervical Cancer Screening: Pap Smear 06/12/2021 06/12/2018, 06/12/2018, 06/12/2018 Social Influencers of Health Screening 04/20/2022 Influenza Vaccine (#1) 2025 4, 02/24/2020, 03/09/2019, Additional history exists Cholesterol Screening (Lipid Panel) 05/19/2029 05/19/2024, 07/11/2022 DTaP,Tdap,and Td Vaccines (8 - Td or Tdap) 07/11/2032 07/11/2022, 04/10/2010, 01/06/1998, Additional history exists RSV Immunization Adult Patients (1 - 1-dose 75+ series) 2062 Varicella Vaccines Aged Out 1990 No longer eligible based on patient's age to complete this topic HIB Vaccines Completed 08/25/1991, 08/25/1991 IPV Vaccines Completed 03/26/1993, 12/10, 10/25/1991, Additional history exists MMR Vaccines Completed 01/06/1998, 08/25/1991 Hepatitis B Vaccines Completed 06/27/1999, 01/24/1999, 12/26/1998 Meningococcal ACWY Vaccine Completed 03/13/2005 HIV Screening Completed 06/10/2018 Hepatitis C Screening Completed 06/10/2018 Depression Screening Completed 05/19/2024 COVID-19 Vaccine Discontinued Hepatitis A Vaccines Aged Out No long [...] LAB CHEMISTRY METHOD 05/19/2024 1:12 PM EST [facility] Triglycerides 97 0 - 150 mg/dL LAB CHEMISTRY METHOD 05/19/2024 1:12 PM EST [facility] HDL 56 >=40 mg/dL LAB CHEMISTRY METHOD 05/19/2024 1:12 PM EST [facility] LDL Calculated 134(H) 0 - 100 mg/dL LAB CHEMISTRY METHOD 05/19/2024 1:12 PM EST [facility] VLDL Cholesterol Jez 19.4 mg/dL LAB CHEMISTRY METHOD 05/19/2024 1:12 PM EST [facility] Non HDL Chol. (LDL+VLDL) 153(H) <145 mg/dL LAB CHEMISTRY METHOD 05/19/2024 1:12 PM EST [facility] Chol/HDL Ratio 3.7 0.0 - 4.4 LAB CHEMISTRY METHOD 05/19/2024 1:12 PM EST [facility] Blood Venous blood specimen / Unknown Venipuncture / Unknown 05/19/2024 9:09 AM EST 05/19/2024 9:09 AM EST Shayan Dickerson BLOCK [facility] LAB BLOOD ORDERABLES Final R esult [facility] [address] [place] [address], [place] [phone] * Pap smear (06/12/2018) 06/12/2018 Narrative HISTORICAL TESTING LAB RESULTING AGENCY - 06/16/2018 11:57 AM EST [id number] THINPREP PAP, IMAGED: NEGATIVE FOR SQUAMOUS INTRAEPITHELIAL LESION AND MALIGNANCY . KAREN RANGEL(ASCP) (CASE ELECTRONICALLY SIGNED 06 16 2018) RESULT OF APTIMA HIGH RISK HPV ASSAY: HIGH RISK HPV: NEGATIVE (SEROTYPES 16,18,31,33,35,39,45,51,52,56,58,59,66,68) COMPLETED ON 2018-06-16 ADEQUACY: SATISFACTORY ENDOCERVICAL/TRANSFORMATION ZONE COMPONENT PRESENT. SOURCE: THINPREP PAP HPV ANY DX: REFLEX 16 AND 18, CERVICAL, IMAGED CLINICAL INFORMATION: HPV ANY DIAGNOSIS. Z12.4, Z01.419 Ashlyn Mujica CNM LAB CYTOLOGY ORDERABLES Final R esult HISTORICAL TESTING LAB RESULTING AGENCY * HIV Screening (06/10/2018) HIV Screening Abstracted Historical Provider HEALTH MAINTENANCE Final Result * Hepatitis C Screening (06/10/2018) Hepatitis C Screening Abstracted Historical Provider HEALTH MAINTENANCE Final Result from Last 3 Months or Most Recently Relevant to Health Maintenance Insurance Care Teams Resident Care Assistant Relationship Specialty Start Date End Date Issa Malave MD [address] [place] [address] PCP - General 11/17/07
[2025-03-27] MEDS: Lactated Ringers 1,000 ML 125 ML IVCONT (22:28)
[2025-03-28 04:13] VITALS: BP 113/75; PULSE 78; RESP 16; TEMP 36.7; O2SAT 100
--- NOTE | 2025-03-28 04:43 | HO.NURTONUR ---
PT is a 39 y/o Female that presented to the ED for RUQ Abdominal and epigastric pain that radiates to the back x2 days, c/o nausea denies vomiting, CT ABD/PELVIS showed acute 2.6 cm impacted stone at the neck of the gallbladder, pt is aaox4, nad, VSS 20g Right forearm, pt has NPO since midnight, and currently runnuing NS @100 mL/Hr
[2025-03-28 05:21] VITALS: BMI 39.4
[2025-03-28 05:27] VITALS: BP 140/60; PULSE 87; RESP 16; TEMP 36.3; O2SAT 99
--- NOTE | 2025-03-28 06:01 | PC.NURSE ---
pt seen in bed upon admission. calm and pleasant, no reports of pain.
--- NOTE | 2025-03-28 07:25 | PM.HPGS ---
History of Present Illness History of Present Illness Date of Service: 03/28/25 <Marco Berry PA-C - Last Filed: 03/28/25 10:37> 03/28/25 <Naga Ann MD - Last Filed: 03/28/25 14:17> Chief complaint: Abdo pain <Marco Berry PA-C - Last Filed: 03/28/25 10:37> Narrative: Rupali Roberts is a 39 year old female who presented to the ED with a 4 day history of RUQ pain with associated nausea and vomiting. She reports the pain is often brought on by eating. States after meals she gets a stabbing pain in the RUQ/epigastric area that radiates to her back. There is a remote history of this happening in the past but is now becoming more frequent and happened that past 4 days when eating. She rates the pain 9/10. Workup in the ED significant for mild leukocytosis of 14.5, no electrolyte abnormalities. Liver enzymes WNL. Abdominal ultrasounds significant for a 2.3 cm impacted stone in the neck without wall thickening or or pericholecystic fluid. Gallbladder was mildly distended. There was no CBD duct dilation. There was a suggestion of adenomyomytosis. Negative sonographic murphys sign. She denies significant medical history, denies history of DM, cardiac history. Denies daily medications aside from vitamins. Surgical history significant for C section in 2010, wisdom teeth. She denies use of alcohol, cigarettes, drug use. Today feeling improved. pain now a 0/10 at rest. Denies nausea or vomiting. <Marco Berry PA-C - Last Filed: 03/28/25 10:37> COUNT INCLUDES THE [facility] Social History Social History: Social History Household Members: Family Housing: House Do you presently have visiting nurse or other home services: No Unable to assess alcohol history related to: Unknown Alcohol intake: never Patient Tobacco Use Status: Never used Tobacco Smoked in Last 30 Days: No Use of substances other than those prescribed or required for medical reasons: No Currently Displaying Signs/Symptoms of Drug Intoxication Withdrawal: No Have you been hit, kicked, punched, or otherwise hurt by someone within the past year? If so, by whom?: No Do you feel safe in your current relationship?: Yes Is there a partner from a previous relationship who is making you feel unsafe now?: No Are you made to feel afraid or neglected: No Advance Directives: No Advance Directives Information Provided: No Do you have a plan to hurt others: No Plan Recently lost weight without trying: No How much weight loss: Not applicable Eating poorly because of decreased appetite: No Nutrition screen score: 0 Nutrition Risks: No Nutritional Risk Patient : No : No Poor oral hygiene: No service: No <Marco Berry PA-C - Last Filed: 03/28/25 10:37> Meds Allergies/Adverse reactions: Allergies Allergy/AdvReac Type Severity Reaction Status Date / Time No Known Allergies Allergy Verified 03/27/25 20:24 pt states no food/medication Allergy Unknown Unknown Uncoded 03/27/25 20:24 a <Marco Berry PA-C - Last Filed: 03/28/25 10:37> Active Medications: Current Medications Acetaminophen (Acetaminophen 325 Mg Tablet) 650 mg PO Q6H PRN PRN Reason: Pain, Mild 1-3,fever,headache Sodium Chloride (Ns) 1,000 mls @ 100 mls/hr IVCONT .Q10H [facility] Last Admin: 03/28/25 02:05 Dose: 100 mls/hr Morphine Sulfate (Morphine Sulfate 4 Mg/Ml Cartridge) 4 mg IVPUSH Q4H PRN; Protocol PRN Reason: Pain, Severe (Pain Scale 7-10) Ondansetron HCl (Ondansetron Hcl 4 Mg/2 Ml Vial) 4 mg IVPUSH Q8H PRN PRN Reason: Nausea and Vomiting Sodium Chloride (0.9 % Sodium Chloride Flush 3 Ml Syringe) 3 ml IVFLUSH QSHIFT [facility] Last Admin: 03/28/25 07:05 Dose: Not Given <Marco Berry PA-C - Last Filed: 03/28/25 10:37> Home medications: Home Medications ?Medication ?Instructions ?Recorded ?Confirmed ?Last Taken ?Type acetaminophen 325 mg capsule 325 mg PO QID PRN Pain 03/28/25 03/28/25 Unknown History ascorbic acid (vitamin C) 1,000 mg 1,000 mg PO DAILY 03/28/25 03/28/25 Unknown History tablet (Vitamin C) ibuprofen 200 mg tablet 200 mg PO Q6H PRN Pain 03/28/25 03/28/25 Unknown History <Marco Berry PA-C - Last Filed: 03/28/25 10:37> Physical Exam Vital Signs: Vital Signs: Last Vital Signs Temp 97.4 F 03/28/25 05:27 Pulse 87 03/28/25 05:27 Resp 16 03/28/25 05:27 BP 140/60 H 03/28/25 05:27 Pulse Ox 99 03/28/25 05:27 O2 Del Method Room Air 03/28/25 05:27 BMI result Body Mass Index 39.4 <Marco Berry PA-C - Last Filed: 03/28/25 10:37> Const: General: comfortable and no acute distress <Marco Berry PA-C - Last Filed: 03/28/25 10:37> Orientation/consciousness: patient oriented x3 <Marco Berry PA-C Maeve Last Filed: 03/28/25 10:37> Resp: Effort & Inspection: normal respiratory effort and able to speak in complete sentences <Marco Berry PA-C Maeve Last Filed: 03/28/25 10:37> GI: Palpation (GI): Soft to palpation, Tenderness to palpation present (GI) in the RUQ and Luevano's sign positive (positive) and no guarding <Marco Berry PA-C - Last Filed: 03/28/25 10:37> Neuro: General: patient oriented x3 <DES Jones Last Filed: 03/28/25 10:37> Results Results Labs: Short CBC 03/27/25 Range/Units 20:30 WBC 13.5 H (4.8-10.8) X10*3/uL Hgb 13.7 (12.0-16.0) g/dl Hct 41.5 (37.0-47.0) % Plt Count 486 H (160-400) X10*3/uL BMP 03/27/25 20:30 Sodium 139 Potassium 4.1 Chloride 110 H Carbon Dioxide 22 BUN 14 Creatinine 0.69 Calcium 9.5 Liver Function 03/27/25 Range/Units 20:30 Total Bilirubin 0.2 (0.0-1.0) mg/dL Direct Bilirubin < 0.2 (0.0-0.5) mg/dL AST 6 (5-31) U/L ALT 20 (0-31) U/L Alkaline Phosphatase 116 (39-117) U/L Albumin 4.2 (3.5-5.0) g/dL <Marco Berry PA-C - Last Filed: 03/28/25 10:37> Assessment and Plan (1) Impacted gallstone of gallbladder: Status: Acute <Marco Berry PA-C - Last Filed: 03/28/25 10:37> (2) RUQ abdominal pain: Status: Acute <Marco Berry PA-C - Last Filed: 03/28/25 10:37> 39 year old female who presented to the ED with a 4 day history of RUQ pain with associated nausea and vomiting. Workup in the ED showing mild white count, marginally improved this morning. No electrolyte abnormalities or liver enzyme elevations. US of the gallbladder showing a mildly distended gb with no wall thickening or pericholecystic fluid. There was a 2.6 cm stone impacted in the neck. Additionally there was suggestion of adenomyotosis of the gallbladder wall. Today feeling improved, denies pain at rest. No nausea or vomiting. Has been NPO however so this may be the reason why she is currently asymptomatic. On exam there was some mild tenderness in the RUQ, positive murphys sign. Abdomen otherwise soft. I started the patient on IV zosyn. We discussed options including treating surgically with laparascopic, possible open cholecystectomy vs conservatively with abx, trial of diet with plan to proceed with surgical intervention if symptoms returned. She would like to talk with her to decide on the best option for her. She remains NPO, further plan pending her decision. NPO IV zosyn Will follow up with patient later today for her goals she has been tentatively added onto OR schedule for tomorrow Patient ultimately decided with her that she would like to proceed with surgical intervention. We discussed risks, benefits, alternatives. WIll try to add her on for later today, but given the OR schedule, may not be possible. Will plan for surgery tomorrow. <Marco Berry PA-C - Last Filed: 03/28/25 10:37> 39 year old female who presented to the ED with a 4 day history of RUQ pain with associated nausea and vomiting. Workup in the ED showing mild white count, marginally improved this morning. No electrolyte abnormalities or liver enzyme elevations. US of the gallbladder showing a mildly distended gb with no wall thickening or pericholecystic fluid. There was a 2.6 cm stone impacted in the neck. Additionally there was suggestion of adenomyotosis of the gallbladder wall. Today feeling improved, denies pain at rest. No nausea or vomiting. Has been NPO however so this may be the reason why she is currently asymptomatic. On exam there was some mild tenderness in the RUQ, positive murphys sign. Abdomen otherwise soft. I started the patient on IV zosyn. We discussed options including treating surgically with laparascopic, possible open cholecystectomy vs conservatively with abx, trial of diet with plan to proceed with surgical intervention if symptoms returned. She would like to talk with her to decide on the best option for her. She remains NPO, further plan pending her decision. NPO IV zosyn Will follow up with patient later today for her goals she has been tentatively added onto OR schedule for tomorrow Patient ultimately decided with her that she would like to proceed with surgical intervention. We discussed risks, benefits, alternatives. WIll try to add her on for later today, but given the OR schedule, may not be possible. Will plan for surgery tomorrow. Patient seen and examined events reviewed. Agree with above findings assessment and plan. Would prefer operative intervention today, however OR is unable to expand capacity to accommodate clinical care demands. We will pursue laparoscopic cholecystectomy in the light of day tomorrow. The plan was reviewed with the patient she indicated she understood and agreed. <Naga Ann MD - Last Filed: 03/28/25 14:17> Quality Stroke Does the patient have a stroke diagnosis?: No <Marco Berry PA-C - Last Filed: 03/28/25 10:37> VTE Prior VTE?: No <Marco Berry PA-C - Last Filed: 03/28/25 10:37> VTE Risk Level:: Surgical - low <Marco Berry PA-C - Last Filed: 03/28/25 10:37> VTE Device Contraindication: N/A - Device Ordered <Marco Berry PA-C - Last Filed: 03/28/25 10:37> VTE Drug Contraindication: Treatment Not Indicated <Marco Berry PA-C - Last Filed: 03/28/25 10:37> Procedures Date of Service Date of Service: 03/28/25 <Marco Berry PA-C - Last Filed: 03/28/25 10:37> 03/28/25 <Naga Ann MD - Last Filed: 03/28/25 14:17>
[2025-03-28 07:30] VITALS: BP 126/64; PULSE 84; RESP 19; TEMP 36.1; O2SAT 96
--- NOTE | 2025-03-28 09:39 | MHC.CM.PN ---
pt lives with is working and indepedent has own ride home itis not expcted that she will need servies when dcd dc plan home n/s
--- NOTE | 2025-03-28 10:44 | PHA.MEDREC ---
Pharmacy Consult ? Medication Reconciliation Pharmacy has completed the medication reconciliation. Patient knew medications. She knew the strength of vitamin c but also takes D,B,Mg, and A at home. She is going to have someone bring in the bottles so they can be entered at a later point
--- NOTE | 2025-03-28 14:55 | P.CONAN_ITS ---
Documented by User: Mary Bunn NP 03/28/25 14:55 HPI - Anesthesia Eval Consult details Narrative: 39 yr old female for Cholecystectomy Laparoscopic,possible open PMFSH Active Problems Active Problems: All Active Problems Impacted gallstone of gallbladder (Acute) RUQ abdominal pain (Acute) Past Medical History Medical History History of seizures as a child Surgical History Surgical History Hx of wisdom tooth extraction Hx of section Social History Social History Household Members: Family Housing: House Are you a primary primary care provider to a significant other at home: No Do you presently have visiting nurse or other home services: No Unable to assess alcohol history related to: Unknown Alcohol intake: never Patient Tobacco Use Status: Never used Tobacco Smoked in Last 30 Days: No Use of substances other than those prescribed or required for medical reasons: No Currently Displaying Signs/Symptoms of Drug Intoxication Withdrawal: No Have you been hit, kicked, punched, or otherwise hurt by someone within the past year? If so, by whom?: No Do you feel safe in your current relationship?: Yes Is there a partner from a previous relationship who is making you feel unsafe now?: No Are you made to feel afraid or neglected: No Are you DNR?: No Advance Directives: No Advance Directives Information Provided: No Do you have a plan to hurt others: No Plan Recently lost weight without trying: No How much weight loss: Not applicable Eating poorly because of decreased appetite: No Nutrition screen score: 0 Nutrition Risks: No Nutritional Risk Patient : No FDLMP: 3 weeks ago : No Poor oral hygiene: No service: No Meds Allergies Allergy/AdvReac Type Severity Reaction Status Date / Time No Known Allergies Allergy Verified 03/29/25 11:01 Active Medications: Current Medications Acetaminophen (Acetaminophen 325 Mg Tablet) 650 mg PO Q6H PRN PRN Reason: Pain, Mild 1-3,fever,headache Last Admin: 03/28/25 07:51 Dose: 650 mg Sodium Chloride (Ns) 1,000 mls @ 100 mls/hr IVCONT .Q10H [facility] Last Admin: 03/28/25 12:27 Dose: 100 mls/hr Piperacillin Sod/Tazobactam (Sod 3.375 gm/ Sodium Chloride) 50 mls @ 100 mls/hr IV Q6H [facility] Last Admin: 03/28/25 14:23 Dose: 100 mls/hr Morphine Sulfate (Morphine Sulfate 4 Mg/Ml Cartridge) 4 mg IVPUSH Q4H PRN; Protocol PRN Reason: Pain, Severe (Pain Scale 7-10) Ondansetron HCl (Ondansetron Hcl 4 Mg/2 Ml Vial) 4 mg IVPUSH Q8H PRN PRN Reason: Nausea and Vomiting Sodium Chloride (0.9 % Sodium Chloride Flush 3 Ml Syringe) 3 ml IVFLUSH QSHIFT [facility] Last Admin: 03/28/25 07:05 Dose: Not Given Home Medications ?Medication ?Instructions ?Recorded ?Confirmed ?Last Taken ?Type acetaminophen 325 mg capsule 325 mg PO QID PRN Pain 03/28/25 Unknown History ascorbic acid (vitamin C) 1,000 mg 1,000 mg PO DAILY 1 05/28/24 03/28/25 Unknown History tablet (Vitamin C) ibuprofen 200 mg tablet 200 mg PO Q6H PRN Pain 03/2803/28/25 Unknown History Exam Height,Weight and Vital Signs: Height 5 ft Weight 91.6 kg Last Vital Signs Temp 97.0 F 03/28/25 07:30 Pulse 84 03/28/25 07:30 Resp 19 03/28/25 07:30 BP 126/64 03/28/25 07:30 Pulse Ox 96 03/28/25 07:30 O2 Del Method Room Air 03/28/25 07:30 Pertinent Lab Results Pertinent Lab Results: Laboratory Tests 03/27/25 20:30 WBC 13.5 H RBC 5.00 Hgb 13.7 Hct 41.5 MCV 83.0 MCH 27.4 MCHC 33.0 RDW 13.9 Plt Count 486 H MPV 10.9 Immature Gran % (Auto) 0.3 Neut % (Auto) 58.6 Lymph % (Auto) 28.8 [place] % (Auto) 9.0 Eos % (Auto) 2.6 Baso % (Auto) 0.7 Lymph # (Auto) 3.9 [place] # (Auto) 1.2 Eos # (Auto) 0.4 Baso # (Auto) 0.1 Abs Immat Gran (auto) 0.04 H Absolute Neuts (auto) 7.9 Absolute Nucleated RBC 0.000 Nucleated RBC % (auto) 0.0 Sodium 139 Potassium 4.1 Chloride 110 H Carbon Dioxide 22 Anion Gap 11 L BUN 14 Creatinine 0.69 Estim Creat Clear Calc 111.0 Estimated GFR > 60 Random Glucose 94 Calcium 9.5 Magnesium 2.1 Total Bilirubin 0.2 Direct Bilirubin < 0.2 AST 6 ALT 20 Alkaline Phosphatase 116 Total Protein 7.6 Albumin 4.2 Lipase 28 Beta HCG, Quant < 2 Documented by User: Abdias Durán MD 03/29/25 12:34 [facility] Past Medical History Medical History History of seizures as a child Family History Family history of problems with anesthesia: No Surgical History Surgical History Hx of wisdom tooth extraction Hx of section History of Problems with Anesthesia: No Social History Social History Household Members: Family Housing: House Are you a primary primary care provider to a significant other at home: No Do you presently have visiting nurse or other home services: No Unable to assess alcohol history related to: Unknown Alcohol intake: never Patient Tobacco Use Status: Never used Tobacco Smoked in Last 30 Days: No Use of substances other than those prescribed or required for medical reasons: No Currently Displaying Signs/Symptoms of Drug Intoxication Withdrawal: No Have you been hit, kicked, punched, or otherwise hurt by someone within the past year? If so, by whom?: No Do you feel safe in your current relationship?: Yes Is there a partner from a previous relationship who is making you feel unsafe now?: No Are you made to feel afraid or neglected: No Are you DNR?: No Advance Directives: No Advance Directives Information Provided: No Do you have a plan to hurt others: No Plan Recently lost weight without trying: No How much weight loss: Not applicable Eating poorly because of decreased appetite: No Nutrition screen score: 0 Nutrition Risks: No Nutritional Risk Patient : No FDLMP: 3 weeks ago : No Poor oral hygiene: No service: No Meds Allergies Allergy/AdvReac Type Severity Reaction Status Date / Time No Known Allergies Allergy Verified 03/29/25 11:01 Home Medications ?Medication ?Instructions ?Recorded ?Confirmed ?Last Taken ?Type acetaminophen 325 mg capsule 325 mg PO QID PRN Pain 03/28/25 Unknown History ascorbic acid (vitamin C) 1,000 mg 1,000 mg PO DAILY 1 05/28/24 03/28/25 Unknown History tablet (Vitamin C) ibuprofen 200 mg tablet 200 mg PO Q6H PRN Pain 03/2803/28/25 Unknown History Exam Exam Date and Time: 03/29/25 Airway Mallampati Class: II TM Dist: >3cm Neck ROM: Full Heart: rrr Lungs: ctab vesicular Assessment and Plan Assessment Anesthesia Assessment: Anesthesia Plan Discussed and Chart Reviewed Final Anesthetic Review Family History of Problems with Anesthesia: No History of Problems with Anesthesia: No NPO: Yes ASA Class: II Final Preanesthetic Review: No Changes in Pt Med Stat, Meds/Allgs Chart Reviewed, Consent Obtained/Reviewed and Anes Risks/Benef Reviewed Patient Risk: Low Procedure Risk: Low Anesthetic Plan Anesthetic Plan: GA Disposition: Standard PACU
[2025-03-28 16:00] VITALS: BP 122/61; PULSE 85; RESP 19; TEMP 36.9; O2SAT 97
[2025-03-28 19:58] VITALS: BP 124/66; PULSE 83; RESP 19; TEMP 36.8; O2SAT 97
[2025-03-29] VITALS (12 sets, daily range): BP systolic 110–139; BP diastolic 61–81; PULSE 84–107; RESP 12–21; TEMP 36.2–37.3; O2SAT 95–100
[2025-03-29 10:12] LABS: Hematocrit 39.4 % (37.0-47.0); Hemoglobin 12.7 g/dl (12.0-16.0); Mean Corpuscular HGB Conc 32.2 g/dl (31.0-35.0); Mean Corpuscular Hemoglobin 27.1 pg (27.0-33.0); Mean Corpuscular Volume 84.2 fL (80.0-98.0); NRBC Abs Auto 0.000 X10*3/uL (0.0-0.012); NRBC Pct Auto 0.0 /100WBC (0.0-0.2); Platelet Count 402 X10*3/uL (160-400); Red Blood Count 4.68 X10*6/uL (4.20-5.50); White Blood Count 11.0 X10*3/uL (4.8-10.8)
[2025-03-29 10:24] LABS: Anion Gap 9 (12-20); Blood Urea Nitrogen 10 mg/dL (9-16); Calcium 8.8 mg/dL (8.4-10.2); Carbon Dioxide 19 mmol/L (22-29); Chloride 114 mmol/L (96-108); Creatinine Clr Calc Pharmacy 109.5; Estimated Glomerular Filt Rate > 60; Potassium 4.3 mmol/L (3.3-5.1); Sodium 138 mmol/L (135-145)
[2025-03-29] MEDS: Lactated Ringers 1,000 ML 100 ML IVCONT ×2 (10:53→15:40)
--- NOTE | 2025-03-29 11:18 | PM.PNGS ---
Subjective Subjective Date of Service: 03/29/25 Interval history: No acute changes overnight. Some mild pain in the right upper quadrant radiating towards back. Denies nausea or vomiting. Nervous about procedure today Physical Exam Vital Signs: Vital Signs: Last Vital Signs Temp 97.7 F 03/29/25 10:54 Pulse 87 03/29/25 10:54 Resp 18 03/29/25 10:54 BP 110/61 03/29/25 10:54 Pulse Ox 100 03/29/25 10:54 O2 Del Method Room Air 03/29/25 10:54 BMI result Body Mass Index 39.4 Const: General: comfortable and no acute distress Orientation/consciousness: patient oriented x3 GI: Inspection: No distended Palpation (GI): Soft to palpation and Tenderness to palpation present (GI) (Mild) in the RUQ Neuro: General: patient oriented x3 Objective Data Active Medications Acetaminophen (Acetaminophen 325 Mg Tablet) 650 mg PO Q6H PRN PRN Reason: Pain, Mild 1-3,fever,headache Last Admin: 03/28/25 07:51 Dose: 650 mg Documented By: AUREA Sodium Chloride (Ns) 1,000 mls @ 100 mls/hr IVCONT .Q10H [facility] Last Admin: 03/29/25 07:54 Dose: 100 mls/hr Documented By: AUREA Piperacillin Sod/Tazobactam (Sod 3.375 gm/ Sodium Chloride) 50 mls @ 100 mls/hr IV Q6H [facility] Last Infusion: 03/29/25 08:25 Dose: Infused Documented By: AUREA Lactated Ringer's (Lr) 1,000 mls @ 100 mls/hr IVCONT .Q10H [facility] Last Admin: 03/29/25 10:53 Dose: 100 mls/hr Documented By: TEENA Morphine Sulfate (Morphine Sulfate 4 Mg/Ml Cartridge) 4 mg IVPUSH Q4H PRN; Protocol PRN Reason: Pain, Severe (Pain Scale 7-10) Ondansetron HCl (Ondansetron Hcl 4 Mg/2 Ml Vial) 4 mg IVPUSH Q8H PRN PRN Reason: Nausea and Vomiting Last Admin: 03/29/25 00:28 Dose: 4 mg Documented By: NADIRA Sodium Chloride (0.9 % Sodium Chloride Flush 3 Ml Syringe) 3 ml IVFLUSH QSHIFT [facility] Last Admin: 03/29/25 07:57 Dose: Not Given Documented By: AUREA Non-Admin Reason: IV Running Labs 03/29/25 09:22 03/29/25 09:22 Labs: Laboratory Results - last 24 hr 03/29/25 09:22 MCV 84.2 MCH 27.1 MCHC 32.2 RDW 14.0 Plt Count 402 H MPV 11.2 Absolute Nucleated RBC 0.000 Nucleated RBC % (auto) 0.0 Anion Gap 9 L Estim Creat Clear Calc 109.5 Estimated GFR > 60 Random Glucose 63 Calcium 8.8 D Procedures Date of Service Date of Service: 03/29/25 Progress Note: A&P Assessment and plan (1) Impacted gallstone of gallbladder: Status: Acute Plan 39-year-old female admitted for impacted gallstone. Minimal pain at rest, very mild and right upper quadrant radiating to back. No acute changes overnight, patient feeling nervous about procedure today. Repeat labs showing improvement in white count. Abdomen is soft relatively benign. We will continue with plan to have laparoscopic cholecystectomy possible open this afternoon. Patient will remain admitted overnight postprocedure for further observation and management. We will repeat labs tomorrow morning. Continue IV fluids, IV antibiotics Lap patricia possible open today A.m. labs We will advance diet following procedure Time Spent With Patient Time: Total time managing care of this patient today ____ minutes. Quality Stroke Does the patient have a stroke diagnosis?: No VTE Prior VTE?: No VTE Risk Level:: Surgical - low VTE Device Contraindication: N/A - Device Ordered VTE Drug Contraindication: Treatment Not Indicated
--- NOTE | 2025-03-29 14:19 | P.OP_ITS ---
Operative Note Operative Note Date of Service: 03/29/25 Narrative: Preoperative diagnosis acute cholecystitis Postoperative diagnosis chronic cholecystitis with hydropic gallbladder Procedure performed laparoscopic lysis of adhesions and mariia cholecystectomy Surgeon Naga Ann MD Chief [employer] ULISES [place] Anesthesia general endotracheal anesthesia IV fluid 1.5 L of crystalloid EBL approximately 50 cc Specimen a front wall of gallbladder and large impacted gallstone Drains 15 Greek channel drain in the right upper quadrant The patient was brought to the operating room and placed supine on the operating table. Her arms and legs were cushioned appropriately and Venodyne boots were placed on both lower extremities and cycled. General endotracheal anesthesia was then initiated via Anesthesiology Service and the patient's abdomen was then prepped and draped in a standard sterile fashion. Proximally 10 cc of Marcaine with epinephrine were then infused in the skin and soft tissue in the infraumbilical region the patient's abdomen. Through this locally anesthetized site stab incision was created following Wolf's lines his skin and carried down with a combination of blunt and sharp dissection to the level of the umbilical root. This was grasped and elevated exposing the median raphe. The stab incision was then created me re-evaluate with an 11 blade and a 12 mm laparoscopic trocar port was placed without difficulty. Carbon dioxide gas was then insufflated to create pneumoperitoneum. Once the intra-abdominal pressure is reached approximately 1 5 mmHg the intra-abdominal contents were surveyed. There was no evidence of injury from placement via the local anesthetic over the laparoscopic trocar port. Three more 5 mm ports were placed sequentially in the right subcostal region in the right periumbilical region and the epigastrium. The patient is in place in reverse Trendelenburg position. The gallbladder is found to be erythematous and edematous with a large impacted stone in the neck. We used an 18 gauge Veress needle to decompress the gallb ladder. This was productive of copious amounts of mucopurulent clear bile. We were then able to grasp the gallbladder and use a 2 axis retraction technique to expose the region of the cystic duct cystic artery. Superficial adhesions around the region of the charles hepatis were taken down without difficulty. The tissues in the region of the duct and artery were markedly changed secondary to a chronic inflammatory process. They were [place] without the usual dissection planes available. I spent approximately an hour and a half in careful blunt and sharp dissection trying to appropriately identify the anatomy. I determined that this was not going to be likely without an injury to a major vascular or hepatic structure. We therefore endeavored to perform a mariia cholecystectomy. Another 5 mm trocar port was placed in the left subcostal region via separate stab incision. A self-retaining liver retractor was then utilized for visualization. We then used a 5 mm Thunderbeat device to perform a top-down mariia cystectomy. We are able to excise the wall of the gallbladder off of the neck with appropriate cuff of gallbladder neck tissue adjoining the cystic duct. The lumen of the gallbladder contains mucopurulent clear bile with a large impacted gallstone in the neck. There was a single gallstone without any other finding. We are able to identify clear green bile coming from the retained gallbladder cuff on the cystic duct. We then used a 2-0 Polysorb suture in a [id number] fashion to obliterate the retained cuff on the cystic duct. This was tied down well and resulted in no bleeding and the bile leakage stopped. The right upper quadrant was then copiously irrigated with approximately 2.5 L of warm saline and evacuated. The right upper quadrant was then reinspected there is no evidence of bile leakage or visceral injury. A retrieval bag was then placed and the gallstone and wall of the gallbladder were secured in the lumen of the bag. It was closed and removed from the patient's abdomen and passed off table as a specimen. The fascia underlying the umbilical port was then closed using 0 Polysorb on a UR 6 needle. This resulted in excellent leak proof closure. The self-retaining liver retractor was removed without difficulty. Final laparoscopic surveillance revealed again no evidence of hemorrhage or bile leakage. The pneumoperitoneum was completely released the remaining trocar ports were removed without difficulty. The skin sites were all the ports were then closed with 4-0 Vicryl. Steri-Strips and sterile occlusive dressings were applied. The patient tolerated procedure well, was recovered from anesthesia and taken to the recovery room in good condition. Should be noted that the sponge instrument needle counts were correct at the end of the case and then I directly supervised or performed all aspects of the case. I also discussed the details of the case with the patient afterward.
[2025-03-29] MEDS: oxyCODONE HCl Immed Release 5 MG TABLET PO (19:42)
[2025-03-30] MEDS: oxyCODONE HCl Immed Release 5 MG TABLET PO ×3 (02:10→16:40)
[2025-03-30 03:47] VITALS: BP 113/60; PULSE 81; RESP 18; TEMP 36; O2SAT 97
[2025-03-30] MEDS: Lactated Ringers 1,000 ML 100 ML IVCONT ×3 (03:47→22:45)
[2025-03-30 05:49] LABS: Hematocrit 36.0 % (37.0-47.0); Hemoglobin 11.9 g/dl (12.0-16.0); Mean Corpuscular HGB Conc 33.1 g/dl (31.0-35.0); Mean Corpuscular Hemoglobin 27.2 pg (27.0-33.0); Mean Corpuscular Volume 82.2 fL (80.0-98.0); NRBC Abs Auto 0.000 X10*3/uL (0.0-0.012); NRBC Pct Auto 0.0 /100WBC (0.0-0.2); Platelet Count 413 X10*3/uL (160-400); Red Blood Count 4.38 X10*6/uL (4.20-5.50); White Blood Count 18.9 X10*3/uL (4.8-10.8)
[2025-03-30 06:10] LABS: Alanine Aminotransferase 34 U/L (0-31); Albumin Level 3.6 g/dL (3.5-5.0); Alkaline Phosphatase 92 U/L (39-117); Anion Gap 10 (12-20); Aspartate Amino Transferase 39 U/L (5-31); Blood Urea Nitrogen 6 mg/dL (9-16); Calcium 8.7 mg/dL (8.4-10.2); Carbon Dioxide 22 mmol/L (22-29); Chloride 111 mmol/L (96-108); Creatinine Clr Calc Pharmacy 125.4; Estimated Glomerular Filt Rate > 60; Potassium 3.8 mmol/L (3.3-5.1); Sodium 139 mmol/L (135-145); Total Protein 6.4 g/dL (6.5-8.0)
--- NOTE | 2025-03-30 07:45 | P.PNGS_ITS ---
<Statement entered by Naga Ann MD - 03/30/25 12:56> Patient seen and examined events reviewed agree with above findings assessment and plan. Patient reports pain in her epigastrium. She denies any fevers chills nausea or vomiting. Abdomen soft obese appropriately tender for this stage of her convalescence. Incisions are dressed. Right upper quadrant TREY drain with serosanguineous output. No evidence of bile. Nursing reports the patient has been tolerating clears p.o. without difficulty and ambulating. She is on DVT prophylaxis and is using her incentive spirometer. We will continue to monitor. We will add Toradol and PPI to help facilitate alleviation of her postoperative discomfort. Subjective Subjective Date of Service: 03/30/25 Interval history: Doing okay today, had a good night overnight. Now struggling with some pain control, pain mostly on right side of abdomen. Denies fevers or chills. She tolerated clear liquid diet without reproduction of symptoms. Has been ambulating and using spirometry Physical Exam 2 Vital Signs: Vital Signs: Last Vital Signs Temp 96.8 F 03/30/25 03:47 Pulse 81 03/30/25 03:47 Resp 18 03/30/25 03:47 BP 113/60 03/30/25 03:47 Pulse Ox 97 03/30/25 03:47 O2 Del Method Room Air 03/30/25 03:47 O2 Flow Rate 6 03/29/25 14:55 BMI result Body Mass Index 39.4 Const: General: comfortable and no acute distress O rientation/consciousness: patient oriented x3 Resp: Effort & Inspection: normal respiratory effort and able to speak in complete sentences GI: Other: TREY in place serosanguineous output Inspection: No distended Palpation (GI): Soft to palpation, Tenderness to palpation present (GI) (Generalized, incisional) and no guarding Neuro: General: patient oriented x3 Objective Data Active Medications Acetaminophen (Acetaminophen 325 Mg Tablet) 650 mg PO Q6H PRN PRN Reason: Pain, Mild 1-3,fever,headache Last Admin: 03/28/25 07:51 Dose: 650 mg Documented By: AUREA Piperacillin Sod/Tazobactam (Sod 3.375 gm/ Sodium Chloride) 50 mls @ 100 mls/hr IV Q6H WENDY Last Infusion: 03/30/25 02:05 Dose: Infused Documented By: BLADIMIR Lactated Ringer's (Lr) 1,000 mls @ 100 mls/hr IVCONT .Q10H [facility] Last Admin: 03/30/25 03:47 Dose: 100 mls/hr Documented By: BLADIMIR Morphine Sulfate (Morphine Sulfate 4 Mg/Ml Cartridge) 4 mg IVPUSH Q4H PRN; Protocol PRN Reason: Pain, Severe (Pain Scale 7-10) Last Admin: 03/30/25 05:31 Dose: 4 mg Documented By: BLADIMIR Ondansetron HCl (Ondansetron Hcl 4 Mg/2 Ml Vial) 4 mg IVPUSH Q8H PRN PRN Reason: Nausea and Vomiting Last Admin: 03/29/25 00:28 Dose: 4 mg Documented By: NADIRA Oxycodone HCl (Oxycodone Hcl Immed Release 5 Mg Tablet) 5 mg PO Q4H PRN PRN Reason: Pain, Moderate(Pain Scale 4-6) Last Admin: 03/30/25 02:10 Dose: 5 mg Documented By: BLADIMIR Sodium Chloride (0.9 % Sodium Chloride Flush 3 Ml Syringe) 3 ml IVFLUSH QSHICHI [facility] Last Admin: 03/30/25 07:10 Dose: Not Given Documented By: HOMER Non-Admin Reason: IV Running Labs 03/30/25 05:23 03/30/25 05:23 Labs: Laboratory Results - last 24 hr 03/29/25 03/30/25 03/30/25 09:22 05:23 05:23 MCV 84.2 82.2 MCH 27.1 27.2 MCHC 32.2 33.1 RDW 14.0 13.8 Plt Count 402 H 413 H MPV 11.2 10.8 Absolute Nucleated RBC 0.000 0.000 Nucleated RBC % (auto) 0.0 0.0 Anion Gap 9 L 10 L Estim Creat Clear Calc 109.5 125.4 Estimated GFR > 60 > 60 Random Glucose 63 108 Calcium 8.8 D 8.7 Total Bilirubin 0.5 Cancelled Direct Bilirubin 0.2 AST ALT Alkaline Phosphatase Total Protein Albumin 03/30/25 03/30/25 03/30/25 05:23 05:23 05:23 MCV MCH MCHC RDW Plt Count MPV Absolute Nucleated RBC Nucleated RBC % (auto) Anion Gap Estim Creat Clear Calc Estimated GFR Random Glucose Calcium Total Bilirubin Direct Bilirubin Cancelled AST 39 H Cancelled ALT 34 H Cancelled Alkaline Phosphatase 92 Total Protein Albumin 03/30/25 03/30/25 03/30/25 05:23 05:23 05:23 MCV MCH MCHC RDW Plt Count MPV Absolute Nucleated RBC Nucleated RBC % (auto) Anion Gap Estim Creat Clear Calc Estimated GFR Random Glucose Calcium Total Bilirubin Direct Bilirubin AST ALT Alkaline Phosphatase Cancelled Total Protein 6.4 L Cancelled Albumin 3.6 Cancelled Procedures Date of Service Date of Service: 03/30/25 Progress Note: A&P Assessment and plan (1) Impacted gallstone of gallbladder: Status: Acute (2) S/P laparoscopic cholecystectomy: Status: Acute Plan 39-year-old female admitted for impacted gallstone. Now postop day 1 laparoscopic lysis of adhesions and mariia cholecystectomy. Doing okay today, struggling with some pain control. Last night was tolerating clear liquid diet without nausea or vomiting. Ambulating without issue. TREY in place output since procedure 120 cc, overnight 20 cc appears serosanguineous, no bile noted. We will continue to watch for bile leak, if bile noted down the road we will consult GI for likely ERCP and stent. Abdomen otherwise soft tender localized to incision sites. Elevation leukocytosis today likely reactive but we will continue to follow. Very mild increase in liver enzymes may be related to liver manipulation intraoperatively, we will trend. We will possibly advance diet later this afternoon if output continues to be serosanguineous. We will repeat labs tomorrow morning. Monitor drain output Continue IV fluids, IV antibiotics Pain control A.m. labs Continue clear liquid diet for now possibly advanced later this afternoon. Time Spent With Patient Time: Total time managing care of this patient today ____ minutes. Quality Stroke Does the patient have a stroke diagnosis?: No VTE Prior VTE?: No VTE Risk Level:: Surgical - low VTE Device Contraindication: N/A - Device Ordered VTE Drug Contraindication: Treatment Not Indicated
[2025-03-30 07:46] VITALS: BP 106/53; PULSE 80; RESP 18; TEMP 37.3; O2SAT 97
--- NOTE | 2025-03-30 08:14 | HO.POSTANES ---
Post Anesthesia Evaluation Post Anesthesia Evaluation Date of Service: 03/30/25 Vital Signs: Vital Signs Temp Pulse Resp BP Pulse Ox O2 Del Method 03/30/25 07:46 99.1 F 80 18 106/53 L 97 Room Air 03/30/25 03:47 96.8 F 81 18 113/60 97 Room Air Anesthesia: General Mental Status: Awake Pain Control: Satisfactory Nausea/Vomiting: None Hydration: Adequate Anesthesia-Related Issues: No Anes. Related Issues
--- NOTE | 2025-03-30 12:07 | ECG_ITS ---
Test Reason : CHEST PAIN Blood Pressure : */* mmHG Vent. Rate : 103 BPM Atrial Rate : 103 BPM P-R Int : 144 ms QRS Dur : 78 ms QT Int : 338 ms P-R-T Axes : 46 20 2 degrees QTcB Int : 442 ms Sinus tachycardia Otherwise normal ECG When compared with ECG of 27-Dec-2018 23:35, No significant change was found Referred By: Marco Berry Electronically Signed By: PAXTON JOHNSON
--- NOTE | 2025-03-30 12:27 | PC.NURSE ---
Addendum entered by Margie Donnelly RN 03/30/25 16:48: At ~1640 pt notifed RN she felt as though she had a fever and that her heart was racing. Oral temp 98.8 and pulse 87. Pt beginning to display signs of anxiety and stated that her pain has not gotten better and felt chest burning again. Pt medicated per JUL. Vitals all WNL. Pt given ice packs and instructed on deep breathing. Will cont to monitor. Original Note: At ~1150 pt reporting 8/10 pain requesting morphine. Morphine given IVP per protocol. ~5 minutes after pt stating she felt like she couldn't breathe and felt chest burning/pressure. Zofran given as pt fearful she would get nauseous. Pt continued to endorse anxiety/chest pressure. Pt provided with ice packs to back of neck and chest. Vitals WNL. ULISES [place] notified and stat EKG obtained. EKG WNL minus slight tachycardia. Dr. Ann also to bedside. Medication changes as reflected in MAR. Will cont to monitor.
[2025-03-30 16:00] VITALS: BP 135/77; PULSE 89; RESP 19; TEMP 37.1; O2SAT 99
--- NOTE | 2025-03-30 19:21 | PC.NURSE ---
At ~1900 while giving nurse to nurse report to night KATIA Rice [employer] ALINER informed this nurse that pts TREY drain was leaking. Entered room to find TREY drain dressing completely saturated in bile colored fluid as well as fluid on pts Vikas and blanket. Picture sent to Dr. Ann. Per Dr. Ann, change dressing q1h and as needed and make pt NPO. Plan for GI consult and possible ERCP. at bedside and made aware. Otherwise pt feeling ok with pain well controlled and vitals WNL. Dressing changed with drainage sponges and tegaderm. Sign off given to Lele MONTALVO.
[2025-03-30 20:00] VITALS: BP 139/81; PULSE 95; RESP 19; TEMP 36.8; O2SAT 99
[2025-03-31] VITALS (11 sets, daily range): BP systolic 111–141; BP diastolic 58–84; PULSE 71–90; RESP 12–19; TEMP 36.1–37.1; O2SAT 95–100
--- NOTE | 2025-03-31 03:49 | PC.NURSE ---
Addendum entered by [place] RN 03/31/25 06:30: OOB TO BATHROOM WITH USE OF WALKER AND STANBY ASSIST..VOIDED 300ml remington-yellow urine...BACK TO BED...C/O 6-7/10 ABDOMINAL PAIN AFTER BACK TO BED..MEDICATED WITH SCHEDULED TORADOL AND PRN DILAUDID PER REQUEST..TREY DRAIN WITH 70ml SEROSANGUINOUS OUTPU OVER 12 HOURS...TREY DRAIN SITE DRESSING WITH SCANT SEROUS DRAIAGE AFTER BACK TO BED Original Note: CARE ASSUMED 7PM..ALERT..ORIENTED X3..RESPIRATIONS EASY..LR 100 CC/HR...VOIDED IN BR...TREY DRAIN SITE DRESSING DRY/INTACT SINCE DRESSING CHANGED 7PM..TREY DRAIN WITH MINIMAL SEROSANGUINOUS DRAINAGE...REPORTED 6-7/10 ABDOMINAL PAIN...SCHEDULED TORADOL AND PRN DILAUDID GIVEN WITH RELIEF/CONTROL OF PAIN PER PATIENT..REMAINS NPO PER SHIFT REPORT PENDING POSSIBLE F/U SURGICAL/GI TREATMENT IN AM...RESTFUL
--- NOTE | 2025-03-31 07:52 | PM.PNGS ---
Subjective Subjective Date of Service: 03/31/25 Interval history: improving today somewhat, pain more controlled at rest with new regimen. Yesterday had episode of chest pain after morphine dose, stat EKG showing sinus tach, all vitals were stable. Yesterday at evening shift change nursing messaged about saturated dressing at the TREY site, appeared billious, have been changing as needed overnight. Patient denying nausea or vomiting. Physical Exam Vital Signs: Vital Signs: Last Vital Signs Temp 98.7 F 03/31/25 07:30 Pulse 83 03/31/25 07:30 Resp 19 03/31/25 07:30 BP 141/84 H 03/31/25 07:30 Pulse Ox 97 03/31/25 07:30 O2 Del Method Room Air 03/31/25 07:30 O2 Flow Rate 6 03/29/25 14:55 BMI result Body Mass Index 39.4 Const: General: comfortable and no acute distress Orientation/consciousness: patient oriented x3 Resp: Effort & Inspection: normal respiratory effort and able to speak in complete sentences GI: Other: incision sites: TREY drain in place, mild bilious saturation of dressing, no bile noted in TREY. Umbilical incision in left upper quadrant incision have mild bloody saturation, dressing change. No purulence noted Palpation (GI): Soft to palpation and Tenderness to palpation present (GI) in the epigastrum, in the RUQ and periumbilically Neuro: General: patient oriented x3 Objective Data Active Medications Acetaminophen (Acetaminophen 325 Mg Tablet) 650 mg PO Q6H PRN PRN Reason: Pain, Mild 1-3,fever,headache Last Admin: 03/28/25 07:51 Dose: 650 mg Documented By: AUREA Hydromorphone HCl (Hydromorphone Hcl 1 Mg/Ml Syringe) 0.5 mg IVPUSH Q4H PRN; Protocol PRN Reason: Pain, Severe (Pain Scale 7-10) Last Admin: 03/31/25 05:59 Dose: 0.5 mg Documented By: TERA Piperacillin Sod/Tazobactam (Sod 3.375 gm/ Sodium Chloride) 50 mls @ 100 mls/hr IV Q6H [facility] Last Infusion: 03/31/25 02:01 Dose: Infused Documented By: TERA Lactated Ringer's (Lr) 1,000 mls @ 100 mls/hr IVCONT .Q10H [facility] Last Admin: 03/30/25 22:45 Dose: 100 mls/hr Documented By: TERA Ketorolac Tromethamine (Ketorolac Tromethamine 30 Mg/Ml Vial) 30 mg IVPUSH Q6H [facility] Stop: 04/04/25 06:31 Last Admin: 03/31/25 05:58 Dose: 30 mg Documented By: TERA Ondansetron HCl (Ondansetron Hcl 4 Mg/2 Ml Vial) 4 mg IVPUSH Q8H PRN PRN Reason: Nausea and Vomiting Last Admin: 03/30/25 12:02 Dose: 4 mg Documented By: HOMER Oxycodone HCl (Oxycodone Hcl Immed Release 5 Mg Tablet) 5 mg PO Q4H PRN PRN Reason: Pain, Moderate(Pain Scale 4-6) Last Admin: 03/30/25 16:40 Dose: 5 mg Documented By: HOMER Pantoprazole Sodium (Pantoprazole Sodium 40 Mg/10 Ml Vial) 40 mg IVPUSH DAILY@0630 [facility] Last Admin: 03/31/25 05:58 Dose: 40 mg Documented By: TERA Sodium Chloride (0.9 % Sodium Chloride Flush 3 Ml Syringe) 3 ml IVFLUSH QSHIFT [facility] Last Admin: 03/30/25 20:47 Dose: Not Given Documented By: TERA Non-Admin Reason: IV Running Labs 03/30/25 05:23 03/30/25 05:23 Procedures Date of Service Date of Service: 03/31/25 Progress Note: A&P Assessment and plan (1) Impacted gallstone of gallbladder: Status: Acute (2) S/P laparoscopic cholecystectomy: Status: Acute (3) Bile leak, postoperative: Status: Acute Plan 39-year-old female admitted for impacted gallstone. Now postop day 1 laparoscopic lysis of adhesions and mariia cholecystectomy. Pain better controlled today with the regimen. Denying nausea or vomiting. Yesterday had an episode of chest pain after endorse of morphine, stat EKG was ordered found to be in sinus tach all other vitals were stable, she improved with time. Regimen was changed now addition of Toradol, morphine swabbed for Dilaudid, she is tolerating this better. Was tolerating clear liquid diet now NPO. Yesterday evening nursing staff reported saturation of TERY dressing with what appeared to be bile. TREY in place output overnight 70 cc appears serosanguineous, no bile noted however there is bile escaping around the tube via the incision site and saturating the dressing. Has been changing hourly as needed. GI has been consulted, spoke with Dr. Fuchs and June. Planning for ERCP with stent later this afternoon. Patient has been NPO. Abdomen otherwise soft tender localized to incision sites, there was some mild saturation of the dressings of the umbilical and left upper quadrant incision sites, I reinforced dressings can change as needed. Improvement in leukocytosis today, will continue to follow. liver enzymes normalized. GI consult NPO for ERCP this afternoon Monitor drain output Continue IV fluids, IV antibiotics Pain control A.m. labs Time Spent With Patient Time: Total time managing care of this patient today ____ minutes. Quality Stroke Does the patient have a stroke diagnosis?: No VTE Prior VTE?: No VTE Risk Level:: Surgical - low VTE Device Contraindication: N/A - Device Ordered VTE Drug Contraindication: Treatment Not Indicated
[2025-03-31 07:54] LABS: Hematocrit 34.2 % (37.0-47.0); Hemoglobin 11.2 g/dl (12.0-16.0); Mean Corpuscular HGB Conc 32.7 g/dl (31.0-35.0); Mean Corpuscular Hemoglobin 27.2 pg (27.0-33.0); Mean Corpuscular Volume 83.0 fL (80.0-98.0); NRBC Abs Auto 0.000 X10*3/uL (0.0-0.012); NRBC Pct Auto 0.0 /100WBC (0.0-0.2); Platelet Count 373 X10*3/uL (160-400); Red Blood Count 4.12 X10*6/uL (4.20-5.50); White Blood Count 11.8 X10*3/uL (4.8-10.8)
[2025-03-31 08:10] LABS: Alanine Aminotransferase 26 U/L (0-31); Albumin Level 3.3 g/dL (3.5-5.0); Alkaline Phosphatase 82 U/L (39-117); Anion Gap 9 (12-20); Aspartate Amino Transferase 22 U/L (5-31); Blood Urea Nitrogen 7 mg/dL (9-16); Calcium 8.3 mg/dL (8.4-10.2); Carbon Dioxide 25 mmol/L (22-29); Chloride 111 mmol/L (96-108); Creatinine Clr Calc Pharmacy 119.6; Estimated Glomerular Filt Rate > 60; Potassium 3.5 mmol/L (3.3-5.1); Sodium 141 mmol/L (135-145); Total Protein 6.0 g/dL (6.5-8.0)
[2025-03-31] MEDS: oxyCODONE HCl Immed Release 5 MG TABLET PO (08:51)
[2025-03-31] MEDS: Lactated Ringers 1,000 ML 100 ML IVCONT (08:54)
--- NOTE | 2025-03-31 09:16 | PM.GICN ---
History of Present Illness Data of Consult Service Date: 03/31/25 Requesting physician: Naga Ann Primary Care Provider: Issa Malave MD [facility] Reason for consult: Bile leak This is a 39-year-old female with past medical history of obesity, who presented to the hospital for intermittent abdominal pain x months with recent exacerbation. She was found to have acute cholecystitis with an impacted stone in the neck of the gallbladder. She underwent laparoscopic having cholecystectomy 03/29/2025. Of note, intraoperative findings pertinent for adhesions on the gallbladder and decision was made to perform a partial cholecystectomy due to difficulty dissecting the planes and the gallbladder. Pt reports she was doing well post-operatively until yesterday evening when she started noticing yellow tinge fluid staining the dressing and sheets. This is not assoc with any worsening of pain, N,V, fevers or chills. On bedside exam today incision dressing in RUQ has overtly bilious staining and TREY drain with bile tinged serosanguinous fluid. LFTs normal today. White count normal. Review of Systems Review of Systems: Yes all other systems are reviewed and are negative PMF Past Medical History Medical History History of seizures as a child Surgical History Surgical History Hx of wisdom tooth extraction Hx of section Social History Social History Household Members: Family Housing: House Are you a primary cattle care worker to a significant other at home: No Do you presently have visiting nurse or other home services: No Unable to assess alcohol history related to: Unknown Alcohol intake: never Patient Tobacco Use Status: Never used Tobacco Smoked in Last 30 Days: No Use of substances other than those prescribed or required for medical reasons: No Currently Displaying Signs/Symptoms of Drug Intoxication Withdrawal: No Have you been hit, kicked, punched, or otherwise hurt by someone within the past year? If so, by whom?: No Do you feel safe in your current relationship?: Yes Is there a partner from a previous relationship who is making you feel unsafe now?: No Are you made to feel afraid or neglected: No Are you DNR?: No Advance Directives: No Advance Directives Information Provided: No Do you have a plan to hurt others: No Plan Recently lost weight without trying: No How much weight loss: Not applicable Eating poorly because of decreased appetite: No Nutrition screen score: 0 Nutrition Risks: No Nutritional Risk Patient : No FDLMP: 3 weeks ago : No Poor oral hygiene: No service: No Meds Allergies Allergy/AdvReac Type Severity Reaction Status Date / Time No Known Allergies Allergy Verified 03/29/25 11:01 Active Medications: Current Medications Acetaminophen (Acetaminophen 325 Mg Tablet) 650 mg PO Q6H PRN PRN Reason: Pain, Mild 1-3,fever,headache Last Admin: 03/31/25 08:53 Dose: 650 mg Hydromorphone HCl (Hydromorphone Hcl 1 Mg/Ml Syringe) 0.5 mg IVPUSH Q4H PRN; Protocol PRN Reason: Pain, Severe (Pain Scale 7-10) Last Admin: 03/31/25 05:59 Dose: 0.5 mg Piperacillin Sod/Tazobactam (Sod 3.375 gm/ Sodium Chloride) 50 mls @ 100 mls/hr IV Q6H [facility] Last Admin: 03/31/25 09:10 Dose: 100 mls/hr Lactated Ringer's (Lr) 1,000 mls @ 100 mls/hr IVCONT .Q10H [facility] Last Admin: 03/31/25 08:54 Dose: 100 mls/hr Ketorolac Tromethamine (Ketorolac Tromethamine 30 Mg/Ml Vial) 30 mg IVPUSH Q6H [facility] Stop: 04/04/25 06:31 Last Admin: 03/31/25 05:58 Dose: 30 mg Ondansetron HCl (Ondansetron Hcl 4 Mg/2 Ml Vial) 4 mg IVPUSH Q8H PRN PRN Reason: Nausea and Vomiting Last Admin: 03/30/25 12:02 Dose: 4 mg Oxycodone HCl (Oxycodone Hcl Immed Release 5 Mg Tablet) 5 mg PO Q4H PRN PRN Reason: Pain, Moderate(Pain Scale 4-6) Last Admin: 03/31/25 08:51 Dose: 5 mg Pantoprazole Sodium (Pantoprazole Sodium 40 Mg/10 Ml Vial) 40 mg IVPUSH DAILY@0630 [facility] Last Admin: 03/31/25 05:58 Dose: 40 mg Sodium Chloride (0.9 % Sodium Chloride Flush 3 Ml Syringe) 3 ml IVFLUSH QSHIFT [facility] Last Admin: 03/31/25 08:51 Dose: Not Given Home Medications ?Medication ?Instructions ?Recorded ?Confirmed ?Last Taken ?Type acetaminophen 325 mg capsule 325 mg PO QID PRN Pain 03/28/25 03/28/25 Unknown History ascorbic acid (vitamin C) 1,000 mg 1,000 mg PO DAILY 03/28/25 03/28/25 Unknown History tablet (Vitamin C) ibuprofen 200 mg tablet 200 mg PO Q6H PRN Pain 03/28/25 03/28/25 Unknown History Physical Exam Exam: Exam: Middle aged female in mild distress Nonicteric abd soft, nondistended, diffusely tender, no guarding no TA Vital Signs: Vital Signs: Last Vital Signs Temp 98.7 F 03/31/25 07:30 Pulse 83 03/31/25 07:30 Resp 19 03/31/25 07:30 BP 141/84 H 03/31/25 07:30 Pulse Ox 97 03/31/25 07:30 O2 Del Method Room Air 03/31/25 07:30 O2 Flow Rate 6 03/29/25 14:55 BMI result Body Mass Index 39.4 Results Labs 03/31/25 07:19 03/31/25 07:19 Labs: Short CBC 03/31/25 Range/Units 07:19 WBC 11.8 H (4.8-10.8) X10*3/uL Hgb 11.2 L (12.0-16.0) g/dl Hct 34.2 L (37.0-47.0) % Plt Count 373 (160-400) X10*3/uL BMP 03/31/25 07:19 Sodium 141 Potassium 3.5 Chloride 111 H Carbon Dioxide 25 BUN 7 L Creatinine 0.65 Calcium 8.3 L Liver Function 03/31/25 Range/Units 07:19 Total Bilirubin 0.5 (0.0-1.0) mg/dL AST 22 (5-31) U/L ALT 26 (0-31) U/L Alkaline Phosphatase 82 (39-117) U/L Albumin 3.3 L (3.5-5.0) g/dL Assessment and Plan (1) Bile leak, postoperative: Status: Acute (2) S/P laparoscopic cholecystectomy: Status: Acute (3) Impacted gallstone of gallbladder: Status: Acute (4) RUQ abdominal pain: Status: Acute Plan 39-year-old female presented with acute cholecystitis due to impacted gallstone in the neck of the gallbladder. Status post partial cholecystectomy 03/29. POD 2 today with overall clinical presentation concerning for bile leak. Plan: -please keep patient NPO -ERCP with sphincterotomy +/- stent placement to be scheduled today with Dr. Watkins -Further recommendations to follow in the procedure note Thank you for allowing me to participate in her care. Please do not hesitate to reach out for any questions or concerns. Procedures Date of Service Date of Service: 03/31/25
--- NOTE | 2025-03-31 10:52 | P.CONAN_ITS ---
HPI - Anesthesia Eval Consult details Narrative: ercp PMFSH Active Problems Active Problems: All Active Problems Bile leak, postoperative (Acute) S/P laparoscopic cholecystectomy (Acute) Impacted gallstone of gallbladder (Acute) RUQ abdominal pain (Acute) Past Medical History Medical History History of seizures as a child Family History Family history of problems with anesthesia: No Surgical History Surgical History Hx of wisdom tooth extraction Hx of section History of Problems with Anesthesia: No Social History Social History Household Members: Family Housing: House Are you a primary transition of care specialist to a significant other at home: No Do you presently have visiting nurse or other home services: No Unable to assess alcohol history related to: Unknown Alcohol intake: never Patient Tobacco Use Status: Never used Tobacco Smoked in Last 30 Days: No Use of substances other than those prescribed or required for medical reasons: No Currently Displaying Signs/Symptoms of Drug Intoxication Withdrawal: No Have you been hit, kicked, punched, or otherwise hurt by someone within the past year? If so, by whom?: No Do you feel safe in your current relationship?: Yes Is there a partner from a previous relationship who is making you feel unsafe now?: No Are you made to feel afraid or neglected: No Are you DNR?: No Advance Directives: No Advance Directives Information Provided: No Do you have a plan to hurt others: No Plan Recently lost weight without trying: No How much weight loss: Not applicable Eating poorly because of decreased appetite: No Nutrition screen score: 0 Nutrition Risks: No Nutritional Risk Patient : No FDLMP: 3 weeks ago : No Poor oral hygiene: No service: No Meds Allergies Allergy/AdvReac Type Severity Reaction Status Date / Time No Known Allergies Allergy Verified 03/29/25 11:01 Active Medications: Current Medications Acetaminophen (Acetaminophen 325 Mg Tablet) 650 mg PO Q6H PRN PRN Reason: Pain, Mild 1-3,fever,headache Last Admin: 03/31/25 08:53 Dose: 650 mg Hydromorphone HCl (Hydromorphone Hcl 1 Mg/Ml Syringe) 0.5 mg IVPUSH Q4H PRN; Protocol PRN Reason: Pain, Severe (Pain Scale 7-10) Last Admin: 03/31/25 05:59 Dose: 0.5 mg Piperacillin Sod/Tazobactam (Sod 3.375 gm/ Sodium Chloride) 50 mls @ 100 mls/hr IV Q6H [facility] Last Infusion: 03/31/25 09:40 Dose: Infused Lactated Ringer's (Lr) 1,000 mls @ 100 mls/hr IVCONT .Q10H [facility] Last Admin: 03/31/25 08:54 Dose: 100 mls/hr Ketorolac Tromethamine (Ketorolac Tromethamine 30 Mg/Ml Vial) 30 mg IVPUSH Q6H [facility] Stop: 04/04/25 06:31 Last Admin: 03/31/25 05:58 Dose: 30 mg Ondansetron HCl (Ondansetron Hcl 4 Mg/2 Ml Vial) 4 mg IVPUSH Q8H PRN PRN Reason: Nausea and Vomiting Last Admin: 03/30/25 12:02 Dose: 4 mg Oxycodone HCl (Oxycodone Hcl Immed Release 5 Mg Tablet) 5 mg PO Q4H PRN PRN Reason: Pain, Moderate(Pain Scale 4-6) Last Admin: 03/31/25 08:51 Dose: 5 mg Pantoprazole Sodium (Pantoprazole Sodium 40 Mg/10 Ml Vial) 40 mg IVPUSH DAILY@0630 [facility] Last Admin: 03/31/25 05:58 Dose: 40 mg Sodium Chloride (0.9 % Sodium Chloride Flush 3 Ml Syringe) 3 ml IVFLUSH QSHIFT [facility] Last Admin: 03/31/25 08:51 Dose: Not Given Home Medications ?Medication ?Instructions ?Recorded ?Confirmed ?Last Taken ?Type acetaminophen 325 mg capsule 325 mg PO QID PRN Pain 03/28/25 Unknown History ascorbic acid (vitamin C) 1,000 mg 1,000 mg PO DAILY 1 05/28/24 03/28/25 Unknown History tablet (Vitamin C) ibuprofen 200 mg tablet 200 mg PO Q6H PRN Pain 03/2803/28/25 Unknown History Exam Height,Weight and Vital Signs: Height 5 ft Weight 91.6 kg Last Vital Signs Temp 98.7 F 03/31/25 07:30 Pulse 83 03/31/25 07:30 Resp 19 03/31/25 07:30 BP 141/84 H 03/31/25 07:30 Pulse Ox 97 03/31/25 07:30 O2 Del Method Room Air 03/31/25 07:30 O2 Flow Rate 6 03/29/25 14:55 Pertinent Lab Results Pertinent Lab Results: Laboratory Tests 03/27/25 03/29/25 03/30/25 20:30 09:22 05:23 WBC 13.5 H 11.0 H 18.9 H RBC 5.00 4.68 4.38 Hgb 13.7 12.7 11.9 L Hct 41.5 39.4 36.0 L MCV 83.0 84.2 82.2 MCH 27.4 27.1 27.2 MCHC 33.0 32.2 33.1 RDW 13.9 14.0 13.8 Plt Count 486 H 402 H 413 H MPV 10.9 11.2 10.8 Immature Gran % (Auto) 0.3 Neut % (Auto) 58.6 Lymph % (Auto) 28.8 Mora % (Auto) 9.0 Eos % (Auto) 2.6 Baso % (Auto) 0.7 Lymph # (Auto) 3.9 Mora # (Auto) 1.2 Eos # (Auto) 0.4 Baso # (Auto) 0.1 Abs Immat Gran (auto) 0.04 H Absolute Neuts (auto) 7.9 Absolute Nucleated RBC 0.000 0.000 0.000 Nucleated RBC % (auto) 0.0 0.0 0.0 Sodium 139 138 139 Potassium 4.1 4.3 3.8 Chloride 110 H 114 H 111 H Carbon Dioxide 22 19 L 22 Anion Gap 11 L 9 L 10 L BUN 14 10 6 L Creatinine 0.69 0.71 0.62 Estim Creat Clear Calc 111.0 109.5 125.4 Estimated GFR > 60 > 60 > 60 Random Glucose 94 63 108 Calcium 9.5 8.8 D 8.7 Magnesium 2.1 Total Bilirubin 0.2 0.5 Direct Bilirubin < 0.2 AST 6 ALT 20 Alkaline Phosphatase 116 Total Protein 7.6 Albumin 4.2 Lipase 28 Beta HCG, Quant < 2 03/30/25 03/30/25 03/30/25 05:23 05:23 05:23 WBC RBC Hgb Hct MCV MCH MCHC RDW Plt Count MPV Immature Gran % (Auto) Neut % (Auto) Lymph % (Auto) Mora % (Auto) Eos % (Auto) Baso % (Auto) Lymph # (Auto) Mora # (Auto) Eos # (Auto) Baso # (Auto) Abs Immat Gran (auto) Absolute Neuts (auto) Absolute Nucleated RBC Nucleated RBC % (auto) Sodium Potassium Chloride Carbon Dioxide Anion Gap BUN Creatinine Estim Creat Clear Calc Estimated GFR Random Glucose Calcium Magnesium Total Bilirubin Cancelled Direct Bilirubin 0.2 Cancelled AST 39 H Cancelled ALT 34 H Alkaline Phosphatase Total Protein Albumin Lipase Beta HCG, Quant 03/30/25 03/30/25 03/30/25 05:23 05:23 05:23 WBC RBC Hgb Hct MCV MCH MCHC RDW Plt Count MPV Immature Gran % (Auto) Neut % (Auto) Lymph % (Auto) Mora % (Auto) Eos % (Auto) Baso % (Auto) Lymph # (Auto) Mora # (Auto) Eos # (Auto) Baso # (Auto) Abs Immat Gran (auto) Absolute Neuts (auto) Absolute Nucleated RBC Nucleated RBC % (auto) Sodium Potassium Chloride Carbon Dioxide Anion Gap BUN Creatinine Estim Creat Clear Calc Estimated GFR Random Glucose Calcium Magnesium Total Bilirubin Direct Bilirubin AST ALT Cancelled Alkaline Phosphatase 92 Cancelled Total Protein 6.4 L Cancelled Albumin 3.6 Lipase Beta HCG, Quant 03/30/25 03/31/25 05:23 07:19 WBC 11.8 H RBC 4.12 L Hgb 11.2 L Hct 34.2 L MCV 83.0 MCH 27.2 MCHC 32.7 RDW 14.3 Plt Count 373 MPV 11.1 Immature Gran % (Auto) Neut % (Auto) Lymph % (Auto) Mora % (Auto) Eos % (Auto) Baso % (Auto) Lymph # (Auto) Mora # (Auto) Eos # (Auto) Baso # (Auto) Abs Immat Gran (auto) Absolute Neuts (auto) Absolute Nucleated RBC 0.000 Nucleated RBC % (auto) 0.0 Sodium 141 Potassium 3.5 Chloride 111 H Carbon Dioxide 25 Anion Gap 9 L BUN 7 L Creatinine 0.65 Estim Creat Clear Calc 119.6 Estimated GFR > 60 Random Glucose 96 Calcium 8.3 L Magnesium Total Bilirubin 0.5 Direct Bilirubin AST 22 ALT 26 Alkaline Phosphatase 82 Total Protein 6.0 L Albumin Cancelled 3.3 L Lipase Beta HCG, Quant Airway Mallampati Class: II TM Dist: >3cm Neck ROM: Full Heart: rrr Lungs: cta Assessment and Plan Assessment Anesthesia Assessment: Anesthesia Plan Discussed and Chart Reviewed Final Anesthetic Review Family History of Problems with Anesthesia: No History of Problems with Anesthesia: No NPO: Yes ASA Class: II Final Preanesthetic Review: No Changes in Pt Med Stat, Meds/Allgs Chart Reviewed, Consent Obtained/Reviewed and Anes Risks/Benef Reviewed Patient Risk: Low Procedure Risk: Low Anesthetic Plan Anesthetic Plan: GA and Agree w/ Assess. and Plan Disposition: Standard PACU
--- NOTE | 2025-03-31 13:20 | MHC.SHP ---
Pre-Procedural Eval Section A - 24 Hr Update-Section A only Date of Service: 03/31/25 The patient is an INPATIENT: Yes The patient has been examined within 24 hours of the surgical procedure. The History & Physical has been completed within 30 days and I have reviewed it.: Yes Section B - Complete if H&P > 30 days Chief Complaint: Abdo pain Allergies: Allergies Allergy/AdvReac Type Severity Reaction Status Date / Time No Known Allergies Allergy Verified 03/29/25 11:01 Plan I have reviewed the history and physical and performed a pertinent physical examination on my patient. No changes have occurred unless specified. ercp for eval for bile leak, profuse o/p from drain noted today Time Spent With Patient Time: Total time managing care of this patient today ____ minutes.
--- NOTE | 2025-03-31 15:08 | W.PM.OPN ---
Operative Note Operative Note Date of Service: 03/31/25 Narrative: Description:?Endoscopic retrograde cholangiopancreatography (ERCP) PROCEDURE:?Endoscopic retrograde cholangiopancreatography with sphincterotomy, intraop cholangiogram, balloon dilation, balloon sweep and stent placement. INDICATION FOR THE PROCEDURE:?Patient with a history of suspected bile leak after cholecystectomy. MEDICATIONS:?General anesthesia. The risks of the procedure were made aware to the patient and consisted of medication reaction, bleeding, perforation, aspiration, and post ERCP pancreatitis. DESCRIPTION OF PROCEDURE:?After informed consent and appropriate sedation, the duodenoscope was inserted into the oropharynx, down the esophagus, and into the stomach. The scope was then advanced through the pylorus to the ampulla. The CBD could not be cannulated and the wire went into the PD. A small pre cut Yoel sphincterotomy was performed. the tome was then slightly angled and the wire slipped straight into the CBD confirmed on cholangiogram. The cholangiogram was formally interpreted and documented. No filling defects noted but seemed to be leakage around the stump of the gallbladder. A sphincterotomy was performed to facilitate possible stone removal, ductal clearance and enlarge the orifice beyond standard cannulation for stent placement. After this a extraction balloon was used and swept across the duct without any stone material or debris noted. A 10 Fr x 7 cm stent was planned to be placed but would not advance fully into the duct. A hurricaine balloon was then used to dilate the sphincter and a 8.5 Fr x 7 cm stent was placed with good bile ouptut noted. The procedure was then terminated. Intraop cholangiogram reivew and interpretation by performing physician: No filling defects noted in the bile duct there but seemed to be leakage around the stump of the gallbladder. FINDINGS: 1. Bile leak s/p stent and sphincterotomy RECOMMENDATIONS: 1. clears today and advance diet tomorrow as tolerated, watch for pancreatitis. 2. Repeat ERCP in 2-3 month for stent removal.
[2025-03-31] MEDS: 0.9 % Sodium Chloride Flush 3 ML SYRINGE IVFLUSH (16:48)
[2025-04-01 03:32] VITALS: BP 110/57; PULSE 74; RESP 18; TEMP 36.6; O2SAT 95
[2025-04-01] MEDS: Lactated Ringers 1,000 ML 100 ML IVCONT ×2 (04:14→08:50)
[2025-04-01 07:48] VITALS: BP 125/61; PULSE 81; RESP 16; TEMP 36.6; O2SAT 98
[2025-04-01] MEDS: 0.9 % Sodium Chloride Flush 3 ML SYRINGE IVFLUSH ×2 (08:07→20:00)
--- NOTE | 2025-04-01 08:30 | P.PNGS_ITS ---
Subjective Subjective Date of Service: 04/01/25 Interval history: feeling improved today. some mild pain in the RUQ. Had ERCP and stent yesterday. Physical Exam 2 Vital Signs: Vital Signs: Last Vital Signs Temp 98 F 04/01/25 07:48 Pulse 81 04/01/25 07:48 Resp 16 04/01/25 07:48 BP 125/61 04/01/25 07:48 Pulse Ox 98 04/01/25 07:48 O2 Del Method Room Air 04/01/25 07:48 O2 Flow Rate 2 03/31/25 15:50 BMI result Body Mass Index 39.4 Const: General: comfortable and no acute distress O rientation/consciousness: patient oriented x3 Resp: Effort & Inspection: normal respiratory effort and able to speak in complete sentences GI: Other: incision sites: TREY drain in place 120cc overnight serosanguenious additional dressings appear dry Palpation (GI): Soft to palpation and Tenderness to palpation present (GI) in the epigastrum, in the RUQ and periumbilically Neuro: General: patient oriented x3 Objective Data Active Medications Acetaminophen (Acetaminophen 325 Mg Tablet) 650 mg PO Q6H PRN PRN Reason: Pain, Mild 1-3,fever,headache Last Admin: 03/31/25 08:53 Dose: 650 mg Documented By: CLARE Hydromorphone HCl (Hydromorphone Hcl 1 Mg/Ml Syringe) 0.5 mg IVPUSH Q4H PRN; Protocol PRN Reason: Pain, Severe (Pain Scale 7-10) Last Admin: 04/01/25 07:56 Dose: 0.5 mg Documented By: JULIO C Piperacillin Sod/Tazobactam (Sod 3.375 gm/ Sodium Chloride) 50 mls @ 100 mls/hr IV Q6H [facility] Last Admin: 04/01/25 07:51 Dose: 100 mls/hr Documented By: JULIO C Lactated Ringer's (Lr) 1,000 mls @ 100 mls/hr IVCONT .Q10H [facility] Last Infusion: 04/01/25 08:11 Dose: 0 mls/hr Documented By: JULIO C Ketorolac Tromethamine (Ketorolac Tromethamine 30 Mg/Ml Vial) 30 mg IVPUSH Q6H [facility] Stop: 04/04/25 06:31 Last Admin: 04/01/25 05:55 Dose: 30 mg Documented By: JENISE Naloxone HCl (Naloxone Hcl 0.4 Mg/Ml Vial) 0.04 mg IVPUSH Q5M PRN PRN Reason: Excessive sedation or RR < 8 Ondansetron HCl (Ondansetron Hcl 4 Mg/2 Ml Vial) 4 mg IVPUSH Q4H PRN PRN Reason: Nausea and Vomiting Last Admin: 04/01/25 07:59 Dose: 4 mg Documented By: JULIO C Oxycodone HCl (Oxycodone Hcl Immed Release 5 Mg Tablet) 5 mg PO Q4H PRN PRN Reason: Pain, Moderate(Pain Scale 4-6) Last Admin: 03/31/25 08:51 Dose: 5 mg Documented By: CLARE Pantoprazole Sodium (Pantoprazole Sodium 40 Mg/10 Ml Vial) 40 mg IVPUSH DAILY@0630 [facility] Last Admin: 04/01/25 05:51 Dose: 40 mg Documented By: JENISE Sodium Chloride (0.9 % Sodium Chloride Flush 3 Ml Syringe) 3 ml IVFLUSH [facility] Last Admin: 04/01/25 08:07 Dose: 3 ml Documented By: JULIO C Labs 03/31/25 07:19 03/31/25 07:19 Procedures Date of Service Date of Service: 04/01/25 Progress Note: A&P Assessment and plan (1) Impacted gallstone of gallbladder: Status: Acute (2) S/P laparoscopic cholecystectomy: Status: Acute (3) Bile leak, postoperative: Status: Acute Plan 39-year-old female admitted for impacted gallstone. postop day 3 laparoscopic lysis of adhesions and mariia cholecystectomy. Now s/p ERCP stent with Dr. Watkins yesterday. Some Pain mild right upper quadrant. Denying nausea or vomiting. Tolerating clear liquid diet, we will advance as tolerated. TREY in place output overnight 120 cc appears serosanguineous, no bile noted however no further bile is coming from incision site. Dressings can be changed daily or as needed. Abdomen otherwise soft tender localized to incision sites, incision sites clean and dry. A.m. labs pending GI consult appreciated Regular diet as tolerated Monitor drain output Continue IV fluids, IV antibiotics, can DC fluids when taking more p.o. Pain control A.m. labs pending Time Spent With Patient Time: Total time managing care of this patient today ____ minutes. Quality Stroke Does the patient have a stroke diagnosis?: No VTE Prior VTE?: No VTE Risk Level:: Surgical - low VTE Device Contraindication: N/A - Device Ordered VTE Drug Contraindication: Treatment Not Indicated
--- NOTE | 2025-04-01 09:22 | HO.POSTANES ---
Post Anesthesia Evaluation Post Anesthesia Evaluation Date of Service: 04/01/25 Vital Signs: Vital Signs Temp Pulse Resp BP Pulse Ox O2 Del Method 04/01/25 07:48 98 F 81 16 125/61 98 Room Air 04/01/25 03:32 97.9 F 74 18 110/57 L 95 Room Air Anesthesia: General Mental Status: Awake Pain Control: Satisfactory Nausea/Vomiting: None Hydration: Adequate Anesthesia-Related Issues: No Anes. Related Issues
[2025-04-01 10:26] LABS: Hematocrit 34.1 % (37.0-47.0); Hemoglobin 11.4 g/dl (12.0-16.0); Mean Corpuscular HGB Conc 33.4 g/dl (31.0-35.0); Mean Corpuscular Hemoglobin 29.1 pg (27.0-33.0); Mean Corpuscular Volume 87.0 fL (80.0-98.0); NRBC Abs Auto 0.550 X10*3/uL (0.0-0.012); Platelet Count 504 X10*3/uL (160-400); Red Blood Count 3.92 X10*6/uL (4.20-5.50); White Blood Count 13.9 X10*3/uL (4.8-10.8)
[2025-04-01 10:28] LABS: NRBC Pct Auto 3.9 /100WBC (0.0-0.2)
[2025-04-01] MEDS: oxyCODONE HCl Immed Release 5 MG TABLET PO ×3 (11:35→22:53)
--- NOTE | 2025-04-01 13:30 | P.PNGI_ITS ---
Subjective Subjective Date of Service: 04/01/25 Interval History: Patient seen at bedside. Status post ERCP with sphincterotomy and biliary stent placement. Continues to have biliary discharge at the incision site with frequent soaking of her dressing. TREY drain with serosanguineous fluid around 50 cc at the time of my assessment. Critical Care Time (minutes): 0 Physical Exam 2 Exam: Exam: young female mild distress nonicteric abd soft, tender, nondistended TREY drain with 50 cc serosanguinous fluid RUQ dressing soaked with bile Vital Signs: Vital Signs: Last Vital Signs Temp 98 F 04/01/25 07:48 Pulse 81 04/01/25 07:48 Resp 16 04/01/25 07:48 BP 125/61 04/01/25 07:48 Pulse Ox 98 04/01/25 07:48 O2 Del Method Room Air 04/01/25 07:48 O2 Flow Rate 2 03/31/25 15:50 BMI result Body Mass Index 39.4 Objective Data Labs 04/01/25 10:16 03/31/25 07:19 Labs: Laboratory Results - last 24 hr 04/01/25 10:16 WBC 13.9 H RBC 3.92 L Hgb 11.4 L Hct 34.1 L MCV 87.0 MCH 29.1 MCHC 33.4 RDW 17.8 H Plt Count 504 H D MPV 12.6 H Absolute Nucleated RBC 0.550 H Nucleated RBC % (auto) 3.9 H Procedures Date of Service Date of Service: 04/01/25 Progress Note: A&P Assessment and plan (1) S/P laparoscopic cholecystectomy: Status: Acute (2) Bile leak, postoperative: Status: Acute (3) RUQ abdominal pain: Status: Acute Plan Patient with history of subtotal cholecystectomy 03/29 . Now with post op bile leak s/p ERCP 03/31 with sphincterotomy and 10 Fr x 7 cm biliary stent palcement. Based on clinical exam appears to have persistent bile leak however the amount has significantly reduced from before. Expect further resolution over the next few days. A repeat ERCP will be scheduled as outpatient to remove indwelling stent and to confirm biliary clearance. Time Spent With Patient Time: Total time managing care of this patient today ____ minutes. Quality Stroke Does the patient have a stroke diagnosis?: No VTE Prior VTE?: No VTE Risk Level:: Surgical - low VTE Device Contraindication: N/A - Device Ordered VTE Drug Contraindication: Treatment Not Indicated
--- NOTE | 2025-04-01 15:07 | MHC.CM.PN ---
Pt. is not ready to DC, she is s/p procedure today. DCP: home, self care.
[2025-04-01 15:24] VITALS: BP 122/68; PULSE 84; RESP 18; TEMP 36.4; O2SAT 97
[2025-04-01 16:01] LABS: Glucose, Whole Blood 93 mg/dL (60-115)
--- NOTE | 2025-04-01 18:16 | PC.NURSE ---
Patient tearful regarding surgery and healing process. Education and reassurance provided. Patient concerned with bruising around umbilical area and surgical site. Bruising is light, slightly larger than originally noted from when dressing was removed by PA this morning. Area under bruising is soft. Patient and family anxious regarding it, wanting to ensure everything is okay and nothing is dismissed. Area outlined for patient to help ease concern and being able to more easily monitor. Patient and seem to be more at ease after conversation.
[2025-04-01 19:08] VITALS: BP 132/62; PULSE 100; RESP 18; TEMP 36.7; O2SAT 96
[2025-04-02 03:40] VITALS: BP 129/61; PULSE 100; RESP 18; TEMP 37; O2SAT 95
[2025-04-02 07:57] VITALS: BP 118/65; PULSE 98; RESP 18; TEMP 37; O2SAT 97
[2025-04-02] MEDS: 0.9 % Sodium Chloride Flush 3 ML SYRINGE IVFLUSH ×2 (08:00→19:46)
--- NOTE | 2025-04-02 14:50 | P.PNGS_ITS ---
Subjective Subjective Date of Service: 04/02/25 Interval history: pt complaining of feeling bloated and uncomfortabel - normally is constipated and hasnt had a bowel movement in 2 weeks - tolerating liquids but feeling distended Physical Exam 2 Vital Signs: Vital Signs: Last Vital Signs Temp 98.6 F 04/02/25 07:57 Pulse 98 04/02/25 07:57 Resp 18 04/02/25 07:57 BP 118/65 04/02/25 07:57 Pulse Ox 97 04/02/25 07:57 O2 Del Method Room Air 04/02/25 07:57 O2 Flow Rate 2 03/31/25 15:50 BMI result Body Mass Index 39.4 Const: Other: pt looking a little bloated and uncomfortable - General: cooperative and no acute distress GI: Other: abdomen is soft quiet bowel sounds massimo with bilious/yellow fluid Objective Data Active Medications Acetaminophen (Acetaminophen 325 Mg Tablet) 650 mg PO Q6H PRN PRN Reason: Pain, Mild 1-3,fever,headache Last Admin: 03/31/25 08:53 Dose: 650 mg Documented By: CLARE Hydromorphone HCl (Hydromorphone Hcl 1 Mg/Ml Syringe) 0.5 mg IVPUSH Q4H PRN; Protocol PRN Reason: Pain, Severe (Pain Scale 7-10) Last Admin: 04/02/25 10:13 Dose: 0.5 mg Documented By: DANITA Piperacillin Sod/Tazobactam (Sod 3.375 gm/ Sodium Chloride) 50 mls @ 100 mls/hr IV Q6H [facility] Last Infusion: 04/02/25 08:41 Dose: Infused Documented By: DANITA Ketorolac Tromethamine (Ketorolac Tromethamine 30 Mg/Ml Vial) 30 mg IVPUSH Q6H WENDY Stop: 04/04/25 06:31 Last Admin: 04/02/25 12:36 Dose: 30 mg Documented By: DANITA Magnesium Citrate (Magnesium Citrate 300 Ml Solution) 150 ml PO ONCE ONE Stop: 04/02/25 14:48 Naloxone HCl (Naloxone Hcl 0.4 Mg/Ml Vial) 0.04 mg IVPUSH Q5M PRN PRN Reason: Excessive sedation or RR < 8 Ondansetron HCl (Ondansetron Hcl 4 Mg/2 Ml Vial) 4 mg IVPUSH Q4H PRN PRN Reason: Nausea and Vomiting Last Admin: 04/02/25 08:00 Dose: 4 mg Documented By: DANITA Oxycodone HCl (Oxycodone Hcl Immed Release 5 Mg Tablet) 5 mg PO Q4H PRN PRN Reason: Pain, Moderate(Pain Scale 4-6) Last Admin: 04/01/25 22:53 Dose: 5 mg Documented By: LEONID Sodium Chloride (0.9 % Sodium Chloride Flush 3 Ml Syringe) 3 ml IVFLUSH [facility] Last Admin: 04/02/25 08:00 Dose: 3 ml Documented By: DANITA Labs 04/01/25 10:16 03/31/25 07:19 Labs: Laboratory Results - last 24 hr 04/01/25 15:58 POC Glucose 93 Procedures Date of Service Date of Service: 04/02/25 Progress Note: A&P Assessment and plan (1) S/P laparoscopic cholecystectomy: Status: Acute Assessment and Plan: 39 year old female with cholecystitis and s/p hemicholecystectomy and bile leak with ercp and stent - massimo drain in place draining overall ok -? constipated - will cont on clear liquids, mag citrate, when has good bowel movement advance diet, encourage ambulation, cont with massimo drain Time Spent With Patient Time: Total time managing care of this patient today ____ minutes. Quality Stroke Does the patient have a stroke diagnosis?: No VTE Prior VTE?: No VTE Risk Level:: Surgical - low VTE Device Contraindication: N/A - Device Ordered VTE Drug Contraindication: Treatment Not Indicated
[2025-04-02 15:28] VITALS: BP 119/64; PULSE 110; RESP 16; TEMP 36.8; O2SAT 97
[2025-04-02 19:24] VITALS: BP 132/60; PULSE 109; RESP 18; TEMP 36.4; O2SAT 97
--- NOTE | 2025-04-02 22:44 | PC.NURSE ---
Addendum entered by Sherice Allen RN 04/03/25 02:03: 0030 rash to right side of face gone after receiving benadryl 25mg po. Original Note: pt noticed a rash on right side of her face.pt denies itch.picture sent to .Benadryl 25mg po Q6hrs prn ordered.
[2025-04-03 04:00] VITALS: BP 101/50; PULSE 91; RESP 16; TEMP 36.4; O2SAT 96
[2025-04-03 08:00] VITALS: BP 106/55; PULSE 100; RESP 18; TEMP 36.1; O2SAT 96
[2025-04-03] MEDS: 0.9 % Sodium Chloride Flush 3 ML SYRINGE IVFLUSH (08:42)
[2025-04-03] MEDS: oxyCODONE HCl Immed Release 5 MG TABLET PO (08:49)
--- NOTE | 2025-04-03 14:35 | PM.DS ---
DS: Providers Provider Date of Service: 04/03/25 Date of admission: 03/27/25 22:42 Date of discharge: 04/03/25 Primary care physician: Issa Malave MD Admitting clinician: Kirstin Chong Consults: 03/31/25 07:10 Consult to Gastroenterology Routine Consulting Provider: [facility] Reason for consultation: bile leak Has provider been notified: Yes Attending physician on discharge: Kirstin Chong DS: Diagnosis Discharge Diagnosis (1) S/P laparoscopic cholecystectomy: Status: Acute DS: Summary Hospital Course Hospital Course: Patient is a 39-year-old female who comes in complaining of right upper quadrant pain nausea and vomiting workup revealing acute cholecystitis. 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 Postoperatively she developed a bile leak and underwent ERCP with stent placement. TREY drain is in her gallbladder fossa and still was draining a little bit of some bilious material. There is also some fluid draining around the exit site of the drain. Postoperatively by postop day 5 she is tolerating p.o. diet well ambulating tolerating p.o. pain meds having bowel movements. She normally tends to be constipated and she says sometimes she does not go for a week to almost 2. She has had a bowel movement here with some magnesium citrate. Our plan is to discharge her home with a TREY drain still in place since it is still draining through the drain and around the drain exit site over 100 cc a day although the amount is trending down. We will send her home with p.o. oxycodone as well as Augmentin for antibiotics as well as MiraLax and Colace. She understands and agrees with the above plan. We will have her set up to see Dr. Ann in the office this week to evaluate the drain and her overall status. She will record daily outputs from the drain Status at Discharge Cognitive/behavioral status at discharge: Good Functional status at discharge: independent ambulation Overall status at discharge: patient is progressing back to baseline Time Attestation Total time managing care of this patient today: 25 mintues. Discharge Coordination Time (in mins): 25 Quality: Safe Use of Opioids Does Pt have an Active Cancer Diagnosis on the Problem List?: No Quality: Stroke Does the patient have a stroke diagnosis?: No Physical Exam Vital Signs: Vital Signs: Last Vital Signs Temp 97.0 F 04/03/25 08:00 Pulse 100 04/03/25 08:00 Resp 18 04/03/25 08:00 BP 106/55 L 04/03/25 08:00 Pulse Ox 96 04/03/25 08:00 O2 Del Method Room Air 04/03/25 08:00 O2 Flow Rate 2 03/31/25 15:50 BMI result Body Mass Index 39.4 Const: General: cooperative, healthy appearing, comfortable and no acute distress Orientation/consciousness: patient oriented x3 Resp: Effort & Inspection: normal respiratory effort Auscultation: clear to auscultation bilaterally Cardio: Rate: regular rate Rhythm: regular rhythm GI: Other: Abdomen is soft less tender only around the incision areas appropriately in the right upper quadrant and around the drain. No guarding no rebound no peritoneal signs TREY drain with a little bit of bilious material still coming through but looking more serous Skin: Other: Nonicteric Neuro: General: patient oriented x3 DS: Data Data Completed and Pending Completed studies during hospitalization [Text1]: Pending at discharge 03/29/25 14:07 Surgical [PTH] Routine Discharge Plan Discharge Anticipated Discharge Date/Time: 04/03/25 14:28 Patient Disposition: Home, Self-Care Discharge Diagnosis: cholecystitis Referrals: Issa Malave MD [Primary Care Provider, Medical] - 1 Week Discharge Medications: New oxycodone 5 mg tablet 5 mg PO Q4H PRN (Reason: pain) Qty: 20 0RF Rx Instructions: Partial Fill upon patient request. docusate sodium [Colace] 100 mg capsule 100 mg PO BID Qty: 30 0RF polyethylene glycol 3350 [Miralax] 17 gram/dose powder 17 g PO DAILY Qty: 119 0RF amoxicillin-pot clavulanate [Augmentin] 500-125 mg tablet 1 tab PO BID Qty: 20 0RF Continued ascorbic acid (vitamin C) [Vitamin C] 1,000 mg Tablet 1,000 mg PO DAILY acetaminophen 325 mg Capsule 325 mg PO QID PRN (Reason: Pain) Discontinued ibuprofen 200 mg Tablet 200 mg PO Q6H PRN (Reason: Pain) Discharge Orders: Discharge Order (Routine); Ordered 04/03/25 Ordered By: Kirstin Chong Diet: Low fat, low cholesterol Activity on Discharge: No heavy lifting Stand Alone Forms: Patient Portal Discharge page Print Language: Maltese Activity Restrictions/Additional Instructions: Keep TREY in place and no showering until it is out. Use gazue/sanitary pads to absorb leaking fluid - collect TREY drain fluid and record daily outputs. If your incision site is sore, you may apply ice to the area for short periods of time (no more than 20 minutes at a time, followed by 20 minutes off). You were prescribed oxycodone to assist with pain management as needed. You can additionally use OTC ibuprofen or acetaminophen as needed for pain. You can remove the dressings at home, they do not need to be redressed. Steri strips can remain in place and will likely fall on their own or in the shower. No heavy lifting >20 pounds No strenuous activity. Do not use creams, lotion, ointment on the incision sites You will follow up with Dr. Ann in the office in 1 week, you can call the office to schedule the appointment ) Monitor drain output daily. To do so, remove the cap and evaluate the amount of fluid in the bulb. Keep a log of how much you empty each day. Please reach out to the office or be seen at the emergency department if you develop: -Fever >101.5 -Increasing pain or swelling of the area -Increased bleeding from the incision site or the incision begins to separate -If you are concerned for incision site infection such as redness, warmth, discharge. Some yellow/pink tinged discharge is normal -You develop nausea or vomiting Care Plan Goals: follow up in the office for drain removal Health Concerns: post op pain bile leak TREY drain managment Plan of Treatment: follow up in the office in 1-2 weeks monitor drain output daily Assessment: doing well
--- NOTE | 2025-04-03 14:36 | MHC.CM.PN ---
DP: PT HAS BEEN MEDICALLY CLEARED FOR DC HOME, NO SERVICES. PT HAS OWN RIDE HOME.
== END 2025-04-03 15:35 | disposition home or self-care (01) | DRG 263 ==
LOC: HO.ED 21:08 → HO.EDOVER 22:52 → HO.S3 03-28 04:08
PROVIDERS: Internal Medicine Gastroenterology; Physician Assistant Medical; Surgery; Admitting Provider Surgery; Emergency Provider Emergency Medicine; PCP Internal Medicine; Visit Provider Surgery
PROC: 0FT44ZZ Resection of Gallbladder, Percutaneous Endoscopic Approach (ICD-10-PCS; CPT 47562; principal; 2025-03-29 11:30)
PROC: 0F798DZ Dilation of Common Bile Duct with Intraluminal Device, Via Natural or Artificial Opening Endoscopic (ICD-10-PCS; CPT 43260; principal; 2025-03-31 13:40)
DX: K80.11 Calculus of gallbladder with chronic cholecystitis with obstruction (principal); K82.1 Hydrops of gallbladder; K91.89 Other postprocedural complications and disorders of digestive system; Z79.899 Other long term (current) drug therapy
CPT/HCPCS: 36415; 76705; 80048; 80053; 80076; 82947; 83690; 83735; 84702; 85025; 85027; 88304; 93005; 99285; C1726; C2625; J0131; J1100; J1171; J1610; J1630; J1805; J1885; J2003; J2250; J2270; J2405; J2470; J2543; J2704; J3010; J7120; Q9967

== ENCOUNTER → 2025-03-27 20:23 | Outpatient (BNV) | payer OTHER, SELFPAY | PROVIDERS: Admitting Provider Surgery; Emergency Provider Emergency Medicine; PCP Internal Medicine; Visit Provider Student in an Organized Health Care Education/Training Program | DX: R10.13 Epigastric pain (principal) | CPT/HCPCS: 76705 ==

== ENCOUNTER 2025-03-27 22:42 | Outpatient (BNV) | payer OTHER, SELFPAY | END 2025-03-30 12:07 | PROVIDERS: Admitting Provider Surgery; Emergency Provider Emergency Medicine; PCP Internal Medicine; Visit Provider Internal Medicine | DX: R00.0 Tachycardia, unspecified (principal) | CPT/HCPCS: 93010 ==

== ENCOUNTER → 2025-03-27 22:42 | Outpatient (BNV) | payer OTHER, SELFPAY | PROVIDERS: Admitting Provider Surgery; Emergency Provider Emergency Medicine; PCP Internal Medicine | DX: K80.20 Calculus of gallbladder without cholecystitis without obstruction (principal); Z90.49 Acquired absence of other specified parts of digestive tract; K91.89 Other postprocedural complications and disorders of digestive system; K83.8 Other specified diseases of biliary tract | CPT/HCPCS: 99024 ==

== ENCOUNTER → 2025-03-27 22:42 | Outpatient (BNV) | payer OTHER, SELFPAY | PROVIDERS: Admitting Provider Surgery; Emergency Provider Emergency Medicine; PCP Internal Medicine; Visit Provider Internal Medicine | DX: Z90.49 Acquired absence of other specified parts of digestive tract (principal); K91.89 Other postprocedural complications and disorders of digestive system; K83.8 Other specified diseases of biliary tract; R10.11 Right upper quadrant pain | CPT/HCPCS: 99232 ==

== ENCOUNTER 2025-04-10 10:24 | Emergency (ER) | payer OTHER, SELFPAY ==
--- NOTE | ~2025-04-10 | CT_ITS ---
CLINICAL HISTORY: RUQ Abd Pain post-op CT abdomen and pelvis without contrast Comparison: US - US ABDOMEN LIMITED - 03/27/25 20:43 EST Findings: The lung bases are clear. There is a stent within the common bile duct extending into the duodenum. No intrahepatic biliary ductal dilatation. There is a surgical drain with tip in the anterior gallbladder fossa. Gallbladder is surgically absent. Small amount of fluid noted in the gallbladder fossa. Adrenal glands, kidneys, spleen are unremarkable. There is some stranding near the pancreatic head. No bowel obstruction, pneumoperitoneum, or pneumatosis. Large amount of fecal loading throughout the colon. Subcutaneous fluid collection adjacent to the umbilicus measuring 4 x 2 x 2.3 cm. No extension to the peritoneal cavity. No ascites. Uterus and adnexa are unremarkable. Normal appendix. The bones are intact. IMPRESSION: 1. Subcutaneous fluid collection adjacent to the umbilicus measuring 4 x 2 x 2.3 cm. Sterility of the collection is unknown. This could represent a seroma or small abscess. 2. Gallbladder fossa drain with tip in the anterior-most portion of the gallbladder fossa. This drain it may have been pulled back slightly from more optimal position. No large collection of fluid in the fossa. 3. Mild fat stranding around the pancreatic head which may be postoperative, but could also be associated with pancreatitis. Biliary ductal drain in expected position. This document has been electronically signed by: Yo Garcia MD on 04/10/2025 18:42:22
[2025-04-10 10:50] VITALS: BP 141/94; PULSE 96; RESP 18; TEMP 36.7; O2SAT 98; BMI 36.9
--- NOTE | 2025-04-10 11:05 | ED_ITS ---
HPI - General Adult General Chief complaint: Abdominal Pain Stated complaint: Nausea Vomiting Diarrhea Time Seen by Provider: 04/10/25 14:34 History of Present Illness ED Provider: Trini Maldonado NP HPI narrative: 39-year-old female presents to the ED complaining of right upper quadrant abdominal pain as well as nausea worse when lying on the left side, with radiation to the right shoulder ongoing for 2 days. The patient does have significant medical history as she is 8 days postoperative laparoscopic cholecystectomy for cholecystitis, complicated by a postoperative bile leak, therefore status post ERCP with stent placement, current TREY drain in the gallbladder fossa still draining bilious material. Her is at bedside and has photos of the bile drainage, which has been slowly decreasing over the past several days. They deny any fever, chills noted at home. Patient denies any chest pain or pressure, shortness of breath or difficulty breathing, palpitations. No upper abdominal pain, some nausea without vomiting. No diarrhea or constipation. Denies urinary complaints. She has not yet had her outpatient general surgery follow up appointment. Related Data Home Medications ?Medication ?Instructions ?Recorded ?Confirmed acetaminophen 325 mg capsule 325 mg PO QID PRN Pain 03/28/25 ascorbic acid (vitamin C) 1,000 mg 1,000 mg PO DAILY 1 05/28/24 03/28/25 tablet (Vitamin C) Previous Rx's ?Medication ?Instructions ?Recorded amoxicillin 500 mg-potassium 1 tab PO BID #20 tabs clavulanate 125 mg tablet (Augmentin) docusate sodium 100 mg capsule 100 mg PO BID #30 caps 04/03/25 (Colace) oxycodone 5 mg tablet 5 mg PO Q4H PRN pain #20 tab s 04/03/25 oxycodone 5 mg tablet 5 mg PO Q4H PRN pain #20 tab s 04/03/25 polyethylene glycol 3350 17 17 g PO DAILY #119 grams 1 06/03/24 gram/dose oral powder (Miralax) ondansetron 4 mg disintegrating 4 mg PO Q8H PRN nausea and 04/10/25 tablet vomiting #14 tabs Allergies Allergy/AdvReac Type Severity Reaction Status Date / Time No Known Allergies Allergy Verified 04/10/25 10:56 Review of Systems 2 Review of Systems: ROS is otherwise negative unless mentioned in HPI. PMFSH Past Medical History Medical History History of seizures as a child Surgical History Hx of wisdom tooth extraction Hx of section Social History Social History Household Members: Family Housing: House Are you a primary career services manager to a significant other at home: No Do you presently have visiting nurse or other home services: No Alcohol intake: never Patient Tobacco Use Status: Never used Tobacco service: No Physical Exam ED Exam Exam: Nursing notes and vital signs reviewed. Constitutional: Well-appearing, NAD. Alert. Oriented X3. Eyes: EOMI. ENT: Pharynx normal. Neck: Normal inspection. Neck supple. CVS: Normal heart rate and rhythm. Pulses normal. Respiratory: No respiratory distress. Breath sounds normal. Abdomen: Soft, nondistended. Mild tenderness to RUQ. Post-operative incision sites without drainage, purple eccymosis surrounding umbilicus. Skin: Skin warm and dry. Normal skin color. Extremities: No lower extremity edema. Neuro: Oriented X 3. No motor deficit. Vital Signs: Vital Signs - 24 hr 04/10/25 10:50 04/10/25 15:45 04/10/25 17:54 Temperature 98.1 F 98.7 F 98.4 F Pulse Rate 96 85 85 Respiratory Rate 18 16 14 Blood Pressure 141/94 H 103/58 L 109/71 Pulse Oximetry 98 98 97 Oxygen Delivery Method Room Air Room Air Room Air 04/10/25 20:22 Temperature 98.4 F Pulse Rate 85 Respiratory Rate 14 Blood Pressure 109/71 Pulse Oximetry 97 Oxygen Delivery Method Room Air BMI result Body Mass Index 36.9 Course Course Course Narrative: Medical screening exam performed. Please refer to detailed history, exam, evaluation, and management by primary provider. Status post cholecystectomy with biliary drain on March 29. Returns today for intermittent waves of nausea, right shoulder pain which was similar pain she had prior to cholecystectomy. No fevers. No abdominal pain. Hemodynamically stable and afebrile at triage. Abdomen is soft and nontender. No jaundice. Check labs. Medications Administered Discontinued Medications Generic Name Dose Route Start Last Admin Trade Name Freq PRN Reason Stop Dose Admin Sodium Chloride 1,000 mls @ 999 mls/hr 04/10/25 14:35 04/10/25 16:57 Ns IV 04/10/25 15:35 Infused .Q1H1M ONE Infusion Iohexol 85 ml 04/10/25 16:07 04/10/25 16:07 Iohexol 350 Mg/Ml 100 Ml Infus..Btl IV 04/10/25 16:08 85 ml ONCE ONE Administration Ketorolac Tromethamine 15 mg 04/10/25 14:48 04/10/25 14:54 Ketorolac Tromethamine 15 Mg/Ml Vial IVPUSH 04/10/25 14:49 15 mg ONCE ONE Administration Ondansetron HCl 4 mg 04/10/25 14:35 04/10/25 14:54 Ondansetron Hcl 4 Mg/2 Ml Vial IVPUSH 04/10/25 14:36 4 mg ONCE ONE Administration Medical Decision Making Medical Decision Making MDM Narrative: On exam, she overall appears well. She does have tenderness to the right upper quadrant mildly on exam, with active nausea. She is now 8 days postoperative laparoscopic hemicolectomy cystectomy secondary to fibrosis, postoperative course complicated by a bile leak, status post ERCP with stent placement and a TREY drain that is still currently draining mild bilious material from the gallbladder fossa. Given the complaint of nausea, as well as the abdominal pain I do have suspicion for postoperative site infection though less likely, but also considered bile duct stone, choledocholithiasis. Her LFTs are mildly elevated. Lipase is flat. We will obtain CT imaging of the abdomen and pelvis, administer antiemetics and pain control and reassess. I offered the patient morphine, though she tells me she had a negative reaction to morphine previously and felt very flushed and hot, as well as the sensation of her heart racing. She is requesting Toradol. We will administer this and reassess. 1857-- I am reviewing the patient's CT imaging, which is concerning for a subcutaneous fluid collection adjacent to the umbilicus measuring 4 x 2 x 2.3 cm, a gallbladder fossa drain with tip in the anterior-most portion of the gallbladder fossa, may have been pulled back slightly from more optimal position, no large collection of fluid in the fossa, in mild fat stranding around the pancreatic head which may be postoperative . As noted previously, clinically there is no concern for cellulitis at the incision sites. Her lipase level is flat, and in the absence of epigastric pain pancreatitis is unlikely. I discussed the imaging and patient case with Dr. Stein, general surgery on-call. He believes the patient can be discharged home if she appears well and is tolerating p.o., and follow up tomorrow outpatient with the general surgeon that performed the procedure, Dr. Ann. The patient is agreeable to this plan. She was given crackers, nandini reba in the ED and is tolerating this comfortably. The urinalysis sample here shows small blood, but no signs of infection, and CT a/p does not show renal stones. Additionally, the CT scan was initially ordered with contrast dye. However, she did have contrast extravasation at the left forearm site. Heat packs were applied to the site immediately, and the swelling has significantly improved. She was given the radiology discharge instructions and we discussed them. With any worsening complaints, she will return back to the ED. Differential Diagnosis Differential Diagnoses: The differential diagnosis associated with the presentation includes post-operative infection, retained stone in CBD, pancreatitis, postoperative nausea Admission/Observation Consideration of admission/observation: Escalation of care including admission/observation considered (Not indicated) Consult Healthcare Provider Management of the patient was discussed with: Planning Advisor (On-call general surgery, Dr. Stein.) Lab Data MDM Lab Attestation statement: I reviewed the patient's lab results. (Mild elevation in her LFTs, 32, 40. Flat lipase.) 04/10/25 11:46 04/10/25 11:46 Labs: Lab Results 04/10/25 04/10/25 Range/Units 11:46 16:58 WBC 10.6 (4.8-10.8) X10*3/uL RBC 4.77 D (4.20-5.50) X10*6/uL Hgb 12.8 (12.0-16.0) g/dl Hct 39.4 (37.0-47.0) % MCV 82.6 (80.0-98.0) fL MCH 26.8 L (27.0-33.0) pg MCHC 32.5 (31.0-35.0) g/dl RDW 13.9 (11.0-16.0) % Plt Count 701 H D (160-400) X10*3/uL MPV 9.9 (9.4-12.3) fL Immature Gran % (Auto) 0.8 H (0.0-0.4) % Neut % (Auto) 62.9 (45-73) % Lymph % (Auto) 24.3 (20-40) % [place] % (Auto) 7.6 (2-11) % Eos % (Auto) 3.6 (0-4) % Baso % (Auto) 0.8 (0-2) % Lymph # (Auto) 2.6 (1.2-4.9) X10*3/uL [place] # (Auto) 0.8 (0.1-1.2) X10*3/uL Eos # (Auto) 0.4 (0.0-0.4) X10*3/uL Baso # (Auto) 0.1 (0.0-0.2) X10*3/uL Abs Immat Gran (auto) 0.08 H (0.00-0.03) X10*3/uL Absolute Neuts (auto) 6.7 (2.0-8.3) x10*3/uL Absolute Nucleated RBC 0.000 (0.0-0.012) X10*3/uL Nucleated RBC % (auto) 0.0 (0.0-0.2) /100WBC Smear Tech's Comments VERIFIED Sodium 141 (135-145) mmol/L Potassium 4.1 (3.3-5.1) mmol/L Chloride 108 (96-108) mmol/L Carbon Dioxide 24 (22-29) mmol/L Anion Gap 13 (12-20) BUN 10 (9-16) mg/dL Creatinine 0.56 (0.5-1.4) mg/dL Estim Creat Clear Calc 133.7 Estimated GFR > 60 Random Glucose 86 (60-115) mg/dL Lactic Acid 2.0 (0.5-2.0) mmol/L Calcium 9.8 D (8.4-10.2) mg/dL Total Bilirubin 0.3 (0.0-1.0) mg/dL AST 32 H (5-31) U/L ALT 40 H (0-31) U/L Alkaline Phosphatase 123 H (39-117) U/L Total Protein 7.8 (6.5-8.0) g/dL Albumin 4.0 (3.5-5.0) g/dL Lipase 66 (8-78) U/L Urine Color Yellow Urine Appearance Clear Urine pH 6.0 (5.0-9.0) Ur Specific [place] >= 1.030 H (1.005-1.025) Urine Protein Negative (Neg-Trace) mg/dL Urine Glucose (UA) Negative (Negative) mg/dL Urine Ketones Negative (Negative) mg/dL Urine Blood Moderate (2+) H (Negative) Urine Nitrite Negative (Negative) Ur Leukocyte Esterase Negative (Negative) Urine RBC 6-10 H (0-2) /HPF Urine WBC 0-5 (0-5) /HPF Ur Squamous Epith Cells 0-2 (0-2) /HPF Urine Bacteria None Seen (None Seen) Hyaline Casts 0-2 (0-2) /LPF Independent Interpretation I performed an independent interpretation of an: CT Scan Interpretation: I have reviewed the patient's imaging and agree with the radiologist's findings. Radiology Impression Discussion of test interpretation with radiology: I have reviewed the radiologist's reading. Radiologist Impression: CT Abdomen Pelvis W IMPRESSION: 1. Subcutaneous fluid collection adjacent to the umbilicus measuring 4 x 2 x 2.3 cm. Sterility of the collection is unknown. This could represent a seroma or small abscess. 2. Gallbladder fossa drain with tip in the anterior-most portion of the gallbladder fossa. This drain it may have been pulled back slightly from more optimal position. No large collection of fluid in the fossa. 3. Mild fat stranding around the pancreatic head which may be postoperative, but could also be associated with pancreatitis. Biliary ductal drain in expected position. Independent Historian Clinical information obtained from an independent historian. History obtained from or confirmed by: Spouse ( at bedside) External Record Review External record reviewed: Other (ER visit, operative report.) Chronic Conditions Patient?s care impacted by: Other (prior cholelithiases) Social Determinants Patient?s care significantly limited by Social Determinants of Health including: Problems related to primary support group Discharge Plan Discharge Clinical Impression: S/P laparoscopic cholecystectomy, RUQ abdominal pain, Nausea Patient Disposition: Home, Self-Care Instructions: Acute Nausea and Vomiting (DC) Additional Instructions: As we discussed, your lab work today was overall reassuring. Your liver function tests were mildly elevated, and this can be rechecked outpatient. Otherwise, the urine sample showed small blood, but no signs of any active infection. Your TREY drain is still actively draining. Please continue to manage this drain at home, and monitor the output. The CT scan of your abdomen and pelvis is overall reassuring, I have listed the results below for your convenience. While here in the ER, I did discuss this with the on-call general surgeon, who would like for you to follow up with your primary general surgeon tomorrow and does not feel you need admission to the hospital overnight. We discusssed this and you would also prefer to go home, as you are eating/drinking comfortably with improvement in pain. Please continue using the at home antiemetic, the Zofran, as needed for nausea and vomiting. With any fever, chills, inability to tolerate oral food or drink, please return back to the ER immediately. Additionally, your IV infiltrated in the ER today. Contrast dye went into the surrounding skin. The area appears much better upon reassessment. However, if this area is red, warm to the touch, hot, or very painful, it is very important they return back to the ED. He may use ice intermittently on the area, and use Tylenol 1-2 tablets every 4-6 hours as needed for discomfort. With any worsening pain return back to the ED immediately. CT below for your convenience, to be used in f/u appointment with general surgery: IMPRESSION: 1. Subcutaneous fluid collection adjacent to the umbilicus measuring 4 x 2 x 2.3 cm. Sterility of the collection is unknown. This could represent a seroma or small abscess. 2. Gallbladder fossa drain with tip in the anterior-most portion of the gallbladder fossa. This drain it may have been pulled back slightly from more optimal position. No large collection of fluid in the fossa. 3. Mild fat stranding around the pancreatic head which may be postoperative, but could also be associated with pancreatitis. Biliary ductal drain in expected position. Prescriptions: New ondansetron 4 mg tablet,disintegrating 4 mg PO Q8H PRN (Reason: nausea and vomiting) Qty: 14 0RF No Action ascorbic acid (vitamin C) [Vitamin C] 1,000 mg Tablet 1,000 mg PO DAILY acetaminophen 325 mg Capsule 325 mg PO QID PRN (Reason: Pain) oxycodone 5 mg tablet 5 mg PO Q4H PRN (Reason: pain) Qty: 20 0RF Rx Instructions: Partial Fill upon patient request. docusate sodium [Colace] 100 mg capsule 100 mg PO BID Qty: 30 0RF polyethylene glycol 3350 [Miralax] 17 gram/dose powder 17 g PO DAILY Qty: 119 0RF amoxicillin-pot clavulanate [Augmentin] 500-125 mg tablet 1 tab PO BID Qty: 20 0RF oxycodone 5 mg tablet 5 mg PO Q4H PRN (Reason: pain) Qty: 20 0RF Rx Instructions: Partial Fill upon patient request. Referrals: Naga Ann MD [Physician, General Surgery] Interventions: ED Discharge Assessment Last Done: 04/10/25 20:22 Discharge Date/Time: 04/10/25 20:23 Print Language: Frisian
[2025-04-10 11:58] LABS: Hematocrit 39.4 % (37.0-47.0); Hemoglobin 12.8 g/dl (12.0-16.0); Imm Gran Abs Auto 0.08 X10*3/uL (0.00-0.03); Imm Gran Pct Auto 0.8 % (0.0-0.4); Lymphocytes Absolute Auto 2.6 X10*3/uL (1.2-4.9); Mean Corpuscular HGB Conc 32.5 g/dl (31.0-35.0); Mean Corpuscular Hemoglobin 26.8 pg (27.0-33.0); Mean Corpuscular Volume 82.6 fL (80.0-98.0); NRBC Abs Auto 0.000 X10*3/uL (0.0-0.012); NRBC Pct Auto 0.0 /100WBC (0.0-0.2); Red Blood Count 4.77 X10*6/uL (4.20-5.50); White Blood Count 10.6 X10*3/uL (4.8-10.8)
[2025-04-10 12:00] LABS: MANUAL DIFF FLAG SCAN
[2025-04-10 12:21] LABS: Platelet Count 701 X10*3/uL (160-400)
[2025-04-10 12:23] LABS: Alanine Aminotransferase 40 U/L (0-31); Albumin Level 4.0 g/dL (3.5-5.0); Alkaline Phosphatase 123 U/L (39-117); Anion Gap 13 (12-20); Aspartate Amino Transferase 32 U/L (5-31); Blood Urea Nitrogen 10 mg/dL (9-16); Calcium 9.8 mg/dL (8.4-10.2); Carbon Dioxide 24 mmol/L (22-29); Chloride 108 mmol/L (96-108); Creatinine Clr Calc Pharmacy 133.7; Estimated Glomerular Filt Rate > 60; Lipase 66 U/L (8-78); Potassium 4.1 mmol/L (3.3-5.1); Sodium 141 mmol/L (135-145); Total Protein 7.8 g/dL (6.5-8.0)
--- OUTSIDE RECORDS SUMMARY | 2025-04-10 14:28 | XMS_ITS | Clinical Summary ---
Author Organization [facility] Address [address] [place] [phone] Phone Care Team Providers Care Batch Or Continuous Still Operator Name Role Phone Issa Malave MD Primary Care Provider [phone] Social History Tobacco Use Types Packs/Day Years [...] Medical Devices Not on file Care Teams Batch Or Continuous Still Operator Relationship Specialty Start Date End Date Issa Malave MD [address] [place] [phone] PCP - General 02/25/17 Additional Source Comments The information contained in this document represents components of the legal health record. It is not the complete legal health record.[facility]
--- OUTSIDE RECORDS SUMMARY | 2025-04-10 14:28 | XMS_ITS | Clinical Summary ---
Author Organization [facility] [address] [place] [address] [place] [address] Phone Care Team Providers Care Wrapper Hand Name Role Phone Issa Malave MD Primary Care Provider [phone] Allergies Active Allergy Reactions Criticality Noted Date [...] Severe obesity (BMI 35.0-39. 9) with comorbidity ([facility] V24, [facility] V28) 05/15/2019 Assessment & Plan (05/19/2024 6:43 [...] disability 05/14/2006 Overview (05/06/2024): Language-based Learning Disability Encounters Date Type Department Care Team Description 04/06/2025 Telephone Adult Medicine [address] [place] [address] Issa Malave MD from Last 3 Months Immunizations Immunization Administration Dates Next Due DTP 03/26/1993, 2,10/25/1991,08/24 [id number] (Pentacel) 2mo to less than 5yo 08/25/1991 [...] brain tumor Daughter 1 chemo/rad -inoperable, Ann Oliva, passed age 7 Hypertension Father Breast cancer [...] 05/19/2024 8:16 AM EST Plan of Treatment Upcoming Encounters Date Type Department Care Team (Late st Contact Info) Description 05/02/2025 10:30 AM EST Office Visit Adult Medicine [facility] [address] [place] [address] Issa Malave MD [address] [place] [address] Health Maintenance Due Date Last Done Comments [...] LAB CHEMISTRY METHOD 05/19/2024 1:12 PM EST [facility] Triglycerides 97 0 - 150 mg/dL LAB CHEMISTRY METHOD 05/19/2024 1:[address] [facility] HDL 56 >=40 mg/dL LAB CHEMISTRY METHOD 05/19/2024 1:12 PM EST [facility] LDL Calculated 134(H) 0 - 100 mg/dL LAB CHEMISTRY METHOD 05/19/2024 1:12 PM EST [facility] VLDL Cholesterol Jez 19.4 mg/dL LAB CHEMISTRY METHOD 05/19/2024 1:12 PM EST [facility] Non HDL Chol. (LDL+VLDL) 153(H) <145 mg/dL LAB CHEMISTRY METHOD 05/19/2024 1:[address] [facility] Chol/HDL Ratio 3.7 0.0 - 4.4 LAB CHEMISTRY METHOD 05/19/2024 1:12 PM EST [facility] Blood Venous blood specimen / Unknown Venipuncture / Unknown 05/19/2024 9:09 AM EST 05/19/2024 9:09 AM EST Shayan Dickerson ADVERTISING EDITOR LAB BLOOD ORDERABLES Final R esult [facility] [address] [place] [address], * Pap smear (06/12/2018) 06/12/2018 Narrative HISTORICAL TESTING LAB RESULTING AGENCY - 06/16/2018 11:57 AM EST [id number] THINPREP PAP, IMAGED: NEGATIVE FOR SQUAMOUS INTRAEPITHELIAL LESION AND MALIGNANCY . KAREN RANGEL(ASCP) (CASE ELECTRONICALLY SIGNED 06 16 2018) RESULT OF APTIMA HIGH RISK HPV ASSAY: HIGH RISK HPV: NEGATIVE (SEROTYPES 16,18,31,33,35,39,45,51,52,56,58,59,66,68) COMPLETED ON 2018-06-16 ADEQUACY: SATISFACTORY ENDOCERVICAL/TRANSFORMATION ZONE COMPONENT PRESENT. SOURCE: THINPREP PAP HPV ANY DX: REFLEX 16 AND 18, CERVICAL, IMAGED CLINICAL INFORMATION: HPV ANY DIAGNOSIS. Z12.4, Z01.419 Ashlyn ANDERSON LAB CYTOLOGY ORDERABLES Final R esult HISTORICAL TESTING LAB RESULTING AGENCY * HIV Screening (06/10/2018) HIV Screening Abstracted Historical Provider HEALTH MAINTENANCE Final Result * Hepatitis C Screening (06/10/2018) Hepatitis C Screening Abstracted Historical Provider HEALTH MAINTENANCE Final Result from Last 3 Months or Most Recently Relevant to Health Maintenance Insurance [facility] Care Teams Wrapper Hand Relationship Specialty Start Date End Date Issa Malave MD [address] [place] [address] PCP - General 11/17/07
--- OUTSIDE RECORDS SUMMARY | 2025-04-10 14:28 | XMS_ITS | Encounter Summary ---
Author Organization [facility] Address [address] [place] [address] Care Team Providers Care Magistrate Assistant Name Role Phone Issa Malave MD Primary Care Provider [phone] Reason for Visit * Reason Onset Date Comments Hospital Follow-up 04/06/2025 Encounter Details Date Type Department Care Team ([facility] Contact Info) Description 04/06/2025 Telephone Adult Medicine [facility] [address] [place] [address] Issa Malave MD [address], [place] [id number] Social History Tobacco Use Types Packs/Day Years Used Date Smoking Tobacco: Never Smokeless Tobacco: Never Alcohol Use Standard Drinks/Week Comments No 0 (1 standard drink = 0.6 oz pur e alcohol) Comments Unknown Sex and Gender Information Value Date Recorded Sex Assigned at Not on file Legal Sex Female 4:33 AM EST Gender Identity Not on file Sexual Orientation Not on file documented as of this encounter Progress Notes * Servando Oleary RN - 04/06/2025 11:56 AM EST Called [facility] hosp fu for 05/02 with pcp pt out og hospital three days now and appt over 14 days away doesn't quality for tcm * Julianna Faye - 04/06/2025 10:58 AM EST Hospital/ER follow up appointment needed Hospital patient was treated at: [facility] Was this only an ER visit or was the patient admitted to the hospital? Admitted to the hospital/kept overnight Date of visit if ER visit only: 03/27/2025 If patient was admitted what was the date of discharge? 04/03/2025 Reason/diagnosis for visit or stay: a lot of back pain, inflammation on gallbladder and infected, stone in gallbladder, urgent surgery was conducted on 03/29/2025 + second surgery on 03/31/2025 When was the patient told to follow up? [facility] Was visit or stay related to an injury? If yes, what was the date of injury (DOI)? No If yes, was the injury due to: Not 3rd democrat related documented in this encounter Plan of Treatment Upcoming Encounters Date Type Department Care Team (Late st Contact Info) Description 05/02/2025 10:30 AM EST Office Visit Adult Medicine [facility] [address] [place] [phone] Issa Malave MD [address] [place] [phone] documented as of this encounter Visit Diagnoses Not on filedocumented in this encounter Additional Health Concerns Assessment Noted Time PHQ-9 Depression Total Score: 0 05/19/19 25 8:00 AM EST documented as of this encounter Care Teams Magistrate Assistant Relationship Specialty Start Date End Date Issa Malave MD [address] [place] [address] PCP - General 11/17/07 documented as of this encounter
[2025-04-10 15:45] VITALS: BP 103/58; PULSE 85; RESP 16; TEMP 37.1; O2SAT 98
[2025-04-10] MEDS: iohexoL 350 MG/ML 100 ML INFUS..BTL 85 ML IV (16:07)
[2025-04-10 17:27] LABS: Appearance Urine Clear; Glucose Urine UA Negative (Negative); PH 6.0 (5.0-9.0); Specific Gravity - Urine >= 1.030 (1.005-1.025); UMIC TRIGGER UA YES
[2025-04-10 17:54] VITALS: BP 109/71; PULSE 85; RESP 14; TEMP 36.9; O2SAT 97
[2025-04-10 20:22] VITALS: BP 109/71; PULSE 85; RESP 14; TEMP 36.9; O2SAT 97
== END 2025-04-10 20:23 | disposition home or self-care (01) ==
PROVIDERS: Physician Assistant; Emergency Provider Emergency Medicine Emergency Medical Services
DX: R11.2 Nausea with vomiting, unspecified (principal); R10.11 Right upper quadrant pain; Z90.49 Acquired absence of other specified parts of digestive tract; Z79.899 Other long term (current) drug therapy
CPT/HCPCS: 36415; 74176; 80053; 81001; 83605; 83690; 85025; 87040; 96361; 96374; 96375; 99284; 99285; J1885; J2405; Q9967

== ENCOUNTER → 2025-04-10 14:47 | Outpatient (BNV) | payer OTHER, SELFPAY | PROVIDERS: Visit Provider Radiology Diagnostic Radiology | DX: R10.11 Right upper quadrant pain (principal) | CPT/HCPCS: 74176 ==

== ENCOUNTER 2025-04-14 08:23 | Outpatient (AMB) | payer OTHER, SELFPAY ==
--- NOTE | 2025-04-14 08:24 | MHC.OFFVIS ---
Vital Signs 04/14/25 08:26 Height 5 ft Weight 190 lb BMI 37.1 BP 117/64 Blood Pressure Location Rt brachial Position Sitting Pulse 100 Intake Visit Reasons: s/p gallbladder Intake Note: Patient seen at [facility] for abdominal pain. S/p lap patricia 03-29-2025. Patient c/o: severe pain lower part of abdomen beneath tube area. Had a hard time sleeping last night due to constant pain and nausea. Has two more days of Augmentin. Taking Oxycodone as needed. Real Estate Closing Coordinator Required: No Accompanied by: spouse Belkisezrolando Allergies No Known Allergies Allergy (Verified 04/14/25 08:32) Medication List - Last Reconciled 04/14/25 by Naga Ann MD acetaminophen 325 mg PO QID PRN amoxicillin-pot clavulanate 500-125 mg (Augmentin) 1 tab PO BID ascorbic acid (vitamin C) (Vitamin C) 1,000 mg PO DAILY docusate sodium (Colace) 100 mg PO BID ondansetron 4 mg PO Q8H PRN oxycodone 5 mg PO Q4H PRN oxycodone 5 mg PO Q4H PRN polyethylene glycol 3350 (Miralax) 17 grams PO DAILY HPI Comments Details: Patient follows up today after undergoing a laparoscopic mariia cholecystectomy on 03/29/2025. She reports she still ?a little sore? but ?doing a lot better. ?. She is tolerating regular diet and having normal bowel and bladder habits. She is not really recording the output from her right upper quadrant drain but her shows pictures that he takes? every couple of days or so? of the drain output. It is impossible to ascertain the exact amounts but from the photographs that appears to be anywhere between 10-20 cc every 24-48 hours. The drain output appears to be straw-colored. The patient goes on to say ?I feel so much better than I did.? She admits that she waited ?weeks and weeks at home with all sorts of a horrible pain when I was eating and even when I did not eat. ?. She is glad that she has had surgery for her gallbladder and ?not should not have waited so long?. [facility] Medical History History of seizures as a child Surgical History Hx of wisdom tooth extraction Hx of section Social History Household Members: Family Housing: House Are you a primary home health care respiratory therapist to a significant other at home: No Do you presently have visiting nurse or other home services: No Alcohol intake: never Patient Tobacco Use Status: Never used Tobacco service: No Review of Systems Const All systems reviewed & are unremarkable except as noted in HPI and below Physical Exam Vital Signs: Last Vital Signs Pulse 100 04/14/25 08:26 BP 117/64 04/14/25 08:26 BMI result Body Mass Index 37.1 Const General: cooperative, healthy appearing, comfortable and no acute distress Nutritional Appearance: obese morbidly obese HEENT Head: Yes normal to inspection, Yes normocephalic and Yes atraumatic Eyes Other: Sclera are anicteric Neck Neck: Yes normal visual inspection Chest Chest palpation & inspection: normal inspection of the chest GI Other: Soft morbidly obese nontender nondistended right upper quadrant drain with approximately 20 cc of straw-colored fluid. The patient and her have no idea how long it has taken for the drain to fill without fluid as they do not keep track of it on a regular basis. ? Maybe a couple of days?. Her incision sites are healing reasonably well. The infraumbilical incision has some leisa-incisional ecchymosis but there was no erythema edema or discharge. Assessment & Plan Assessment & Plan (1) S/P laparoscopic cholecystectomy: Comment: 03/29/[address] Ann Code(s): Z90.49 - Acquired absence of other specified parts of digestive tract Category: Medical Plan: I told the patient I was glad that she was improving after her laparoscopic mariia cholecystectomy on 03/29 2025. I added that she should continue her current diet and exercise regimen and I asked her to come back and see me again in approximately 1 week for reassessment of her drain. Hopefully they can keep track of the output in once it has tapered down a little bit more removal would be appropriate. The patient and her indicated that they understood and they indicated that they were very happy with the plan as it was outlined to them. Coding Level of Care Code Est Pt Level 3 (12067) Diagnoses S/P laparoscopic cholecystectomy Z90.49 Time Spent (min) 20 Comment Patient visit, record review and coordination of care time
[2025-04-14 08:26] VITALS: BP 117/64; PULSE 100; BMI 37.1
--- OUTSIDE RECORDS SUMMARY | 2025-04-14 09:00 | XMS_ITS | Clinical Summary ---
Author Organization [facility] Address [address] [facility] [address] [place] [address] Phone Care Team Providers Care Tassel Making Machine Operator Name Role Phone Issa Malave MD Primary Care Provider [phone] Social History Tobacco Use Types Packs/Day Years [...] Medical Devices Not on file Care Teams Tassel Making Machine Operator Relationship Specialty Start Date End Date Issa Malave MD [address] [place] [id number] PCP - General 02/25/17 Additional Source Comments The information contained in this document represents components of the legal health record. It is not the complete legal health record.[facility]
--- OUTSIDE RECORDS SUMMARY | 2025-04-14 09:00 | XMS_ITS | Clinical Summary ---
Author Organization [facility] [address] [place] [address] [place] [address] Phone Care Team Providers Care Import/Export Clerk Name Role Phone Issa Malave MD Primary Care Provider Allergies Active Allergy Reactions Criticality Noted Date [...] Severe obesity (BMI 35.0-39. 9) with comorbidity ([facility] V24, [facility] V28) 05/15/2019 Assessment & Plan [...] Care Team Description 04/06/2025 Telephone Adult Medicine [address] [place] [address] Issa Malave MD from Last 3 Months Immunizations Immunization Administration Dates Next Due DTP 03/26/1993, 2,10/25/1991,08/24 [id number] (Pentacel) 2mo to less than 5yo 08/25/1991 [...] 10:30 AM EST Office Visit Adult Medicine [facility] [address] [place] [address] Issa Malave MD [address] [place] [address] Health Maintenance Due Date Last Done Comments HPV Vaccines (1 - 3-dose SCDM series) 2014 Cervical Cancer Screening: Pap Smear 06/12/2021 06/12/2018, 06/12/2018 Social Influencers of Health Screening 04/20/2022 Influenza Vaccine (#1) 2025 , 02/24/2020, 03/09/2019, Additional history exists Cholesterol Screening [...] LAB CHEMISTRY METHOD 05/19/2024 1:12 PM EST [facility] Triglycerides 97 0 - 150 mg/dL LAB CHEMISTRY METHOD 05/19/2024 1:12 PM [facility] HDL 56 >=40 mg/dL LAB CHEMISTRY METHOD 05/19/2024 1:12 PM [facility] LDL Calculated 134(H) 0 - 100 mg/dL LAB CHEMISTRY METHOD 05/19/2024 1:12 PM EST [facility] VLDL Cholesterol Jez 19.4 mg/dL LAB CHEMISTRY METHOD 05/19/2024 1:12 PM EST [facility] Non HDL Chol. (LDL+VLDL) 153(H) <145 mg/dL LAB CHEMISTRY METHOD 05/19/2024 1:12 PM EST [facility] Chol/HDL Ratio 3.7 0.0 - 4.4 LAB CHEMISTRY METHOD 05/19/2024 1:12 PM EST [facility] Blood Venous blood specimen / Unknown Venipuncture / Unknown 05/19/2024 9:09 AM EST 05/19/2024 9:09 AM EST Shayan Dickerson LANCE CREWMEMBER LAB BLOOD ORDERABLES Final R esult [facility] [address] [place] [address], * Pap smear (06/12/2018) 06/12/2018 Narrative HISTORICAL TESTING LAB RESULTING AGENCY - 06/16/2018 11:57 AM EST [id number] THINPREP PAP, IMAGED: NEGATIVE FOR SQUAMOUS INTRAEPITHELIAL [...] Most Recently Relevant to Health Maintenance Insurance [facility] Care Teams Import/Export Clerk Relationship Specialty Start Date End Date Issa Malave MD [address] [place] [address] PCP - General 11/17/07
== END 2025-04-14 08:47 | disposition home or self-care (01) ==
LOC: HO.HGS 08:23
PROVIDERS: PCP Internal Medicine; Visit Provider Surgery
DX: Z90.49 Acquired absence of other specified parts of digestive tract (principal)
CPT/HCPCS: 99024

== ENCOUNTER 2025-04-20 14:17 | Outpatient (AMB) | payer OTHER, SELFPAY ==
--- NOTE | 2025-04-20 14:34 | A.OFFVIS_ITS ---
Intake Visit Reasons: 1wk tube removal Allergies No Known Allergies Allergy (Verified 04/14/25 08:32) Medication List - Last Reconciled 04/20/25 by Naga Ann MD acetaminophen 325 mg PO QID PRN amoxicillin-pot clavulanate 500-125 mg (Augmentin) 1 tab PO BID ascorbic acid (vitamin C) (Vitamin C) 1,000 mg PO DAILY docusate sodium (Colace) 100 mg PO BID ondansetron 4 mg PO Q8H PRN oxycodone 5 mg PO Q4H PRN oxycodone 5 mg PO Q4H PRN polyethylene glycol 3350 (Miralax) 17 grams PO DAILY HPI Comments Details: Patient presents for right upper quadrant drain removal. She reports only puts out about 10 cc over 36-48 hours. She denies any fevers chills nausea or vomiting although she does say that she was recently diagnosed with a urinary tract infection is on antibiotics for that issue. She reports regular bowel and bladder habits. [facility] Medical History History of seizures as a child Surgical History Hx of wisdom tooth extraction Hx of section Social History Household Members: Family Housing: House Are you a primary care coordinator to a significant other at home: No Do you presently have visiting nurse or other home services: No Alcohol intake: never Patient Tobacco Use Status: Never used Tobacco service: No Review of Systems Const All systems reviewed & are unremarkable except as noted in HPI and below Physical Exam Const General: cooperative, healthy appearing and comfortable HEENT Head: Yes normal to inspection Eyes General: appearance normal, both eyes and all related structures Pupils: Equal, round and reactive pupils present EOM: EOMs intact bilaterally GI Other: A soft morbidly obese nontender nondistended incisions healing well. Right upper quadrant drain with light serous fluid in the bulb. Nonbilious. Neuro Cranial nerves: Yes Equal, round and reactive pupils present Assessment & Plan Assessment & Plan (1) S/P laparoscopic cholecystectomy: Comment: 03/29/[address] Ann Code(s): Z90.49 - Acquired absence of other specified parts of digestive tract Category: Medical Plan: Using sterile technique I removed the drain without difficulty and placed a Band-Aid over it. I discussed patient's care of the drain site. I told her that she can always follow up with us if she had any questions or problems but routine scheduled clinic visits with us were not needed. She thanked me for my time and efforts on her behalf and said she was happy with the plan as it was outlined to her. Coding Level of Care Code Global (44762) Diagnoses S/P laparoscopic cholecystectomy Z90.49 Time Spent (min) 20 Comment Patient visit and coordination of care time
--- OUTSIDE RECORDS SUMMARY | 2025-04-20 22:32 | XMS_ITS | Encounter Summary ---
Author Organization [facility] Address [address] [place] [address] Care Team Providers Care Larriman Name Role Phone Issa Malave MD Primary Care Provider [phone] Reason for Visit * Reason Onset Date Comments Abdominal Pain 04/19/2025 Encounter Details Date Type Department Care Team ([facility] st Contact Info) Description 04/19/2025 Telephone Adult Medicine [facility] [address] [place] [address] Issa Malave MD [address] [place] [address] Social History Tobacco Use Types Packs/Day Years [...] as of this encounter Progress Notes * Shara Corbin RN - 04/19/2025 8:45 AM EST Pt has had dysuria and frequency for the past 3 hours, Pt has no chest pain or SOB, denies any N/V/D or fever, is able to tolerate PO with no difficulty, Pt has lower abd pressure , no flank pain, C/O burning with urination,voiding small amounts frequently and has urgency, does have blood in the urine. Pt offered appointment today but she cannot wait , will go to urgent care to be seen right away . * Valentina Hutchinson - 04/19/2025 8:38 AM EST Patient call requires triage: Symptoms patient is presenting: Patient had surgery on March 29 and the 2024. Patient statesshe has UTI - Frequent Urination, burning while urination, when cleaning patient see's pink, lower abdominal pain. Patient is in a lot of pain. How long has patient had these symptoms?: Early this morning For ALL patients calling to schedule any appointment (routine, sick visit, follow up, consult, etc.) in the outpatient setting please ask the following questions: Do you have fever of higher than 101, sore throat with difficulty swallowing or severe shortness ofbreath? no If YES to any of these above symptoms, send a message to triage and do not book. Red dot. If no, an audio or video visit should be booked. Have you had close contact with someone with Coronavirus in the last 14 days? no Have you traveled abroad? no Have you traveled recently to another state outside of [place], [place], [place], [place], [place], [place], [place]? no o If yes, did you quarantine for 14 days or have a negative covid test? no If yes to any of the above, patient is not to be scheduled in office until after 14 day quarantine or negative covid test. If pain or injury related was it due to an accident at work or from a motor vehicle accident? If yes, date of accident/Injury: No If yes, gather 3rd alliance party insurance information Third Alliance Party Information: not applicable PCP: Issa Malave MD Payor: [facility] / Plan: [facility] / Product Type: *No Product type* / documented in this encounter Plan of Treatment Upcoming Encounters Date Type Department Care Team (Late st Contact Info) Description 05/02/2025 10:30 AM EST Office Visit Adult Medicine [facility] [address] [place] [phone] Issa Malave MD [address] [place] [address] documented as of this encounter Visit Diagnoses Not on filedocumented in this encounter Additional Health Concerns Assessment Noted Time PHQ-9 Depression Total Score: 0 01/08/20 25 8:00 AM EST documented as of this encounter Care Teams Larriman Relationship Specialty Start Date End Date Issa Malave MD [address] [place] [address] PCP - General 11/17/07 documented as of this encounter
--- OUTSIDE RECORDS SUMMARY | 2025-04-20 22:32 | XMS_ITS | Clinical Summary ---
Author Organization [facility] [address] [place] [address] [place] [address] Phone Care Team Providers Care Gas Cutter Name Role Phone Issa Malave MD Primary Care Provider [phone] Allergies Active Allergy Reactions Criticality Noted Date [...] agreement. All questions answered. Severe obesity (BMI 35.0-39.9) with comorbidity 05/15/2019 Assessment & Plan (05/19/2024 6:43 PM [...] Encounters Date Type Department Care Team Description 04/19/2025 Telephone Adult Medicine [address] [address] Issa Malave MD 04/06/2025 Telephone Adult Medicine [address], [place] [phone] Issa Malave MD from Last 3 Months Immunizations Immunization Administration Dates Next Due DTP 03/26/1993, 2,10/25/1991,08/24 [id number] (Pentacel) 2mo to less than 5yo 08/25/1991 [...] on file Sexual Orientation Not on file Last Filed Vital Signs Vital Sign Reading [...] 10:30 AM EST Office Visit Adult Medicine [address] [phone] Issa Malave MD [address] [place] [address] Health Maintenance Due Date Last Done Comments [...] Procedure Name Priority Date/Time Associated Diagnosis Comments EXTERNAL XRAY REPORT 03/27/2025 EXTERNAL XRAY REPORT 03/27/2025 EXTERNAL ULTRASOUND REPORT 03/27/2025 EXTERNAL ULTRASOUND REPORT 03/27/2025 LIPID PANEL WITH REFLEX TO DIRECT LDL Routine 05/19/2024 9:09 AM EST Encounter for screening for cardiovascular disorders PAP SMEAR Routine 06/12/2018 HEPATITIS C SCREENING Routine 06/10/2018 HIV SCREENING Routine 06/10/2018 from Last 3 Months or Most Recently Relevant to Health Maintenance Results * External Xray Report (03/27/2025) Only the most recent of2 resultswithin the time period is included. Anatomical Region Laterality Modality Radiographic Erika ging us Provider [facility] XR PROCEDURES Final Result * External Ultrasound Report (03/27/2025) Only the most recent of2 resultswithin the time period is included. Anatomical Region Laterality Modality Ultrasound us Provider [facility] US PROCEDURES Final Result * (ABNORMAL) Lipid panel with reflex to direct LDL (05/19/2024 9:09 AM EST) Cholesterol 209(H) 0 - 200 mg/dL LAB CHEMISTRY METHOD 05/19/2024 1:[address] [facility] Triglycerides 97 0 - 150 mg/dL LAB CHEMISTRY METHOD 05/19/2024 1:[address] [facility] HDL 56 >=40 mg/dL LAB CHEMISTRY METHOD 05/19/2024 1:[address] [facility] LDL Calculated 134(H) 0 - 100 mg/dL LAB CHEMISTRY METHOD 05/19/2024 1:[address] [facility] VLDL Cholesterol Jez 19.4 mg/dL LAB CHEMISTRY METHOD 05/19/2024 1:[address] [facility] Non HDL Chol. (LDL+VLDL) 153(H) <145 mg/dL LAB CHEMISTRY METHOD 05/19/2024 1:[address] [facility] Chol/HDL Ratio 3.7 0.0 - 4.4 LAB CHEMISTRY METHOD 05/19/2024 1:[address] [facility] Blood Venous blood specimen / Unknown Venipuncture / Unknown 05/19/2024 9:09 AM EST 05/19/2024 9:09 AM EST Shayan Dickerson LICENSED OCCUPATIONAL THERAPIST LAB BLOOD ORDERABLES Final R esult [facility] [address] [place] [address], * Pap smear (06/12/2018) 06/12/2018 Narrative HISTORICAL TESTING LAB RESULTING AGENCY - 06/16/2018 11:57 AM EST [id number] THINPREP PAP, IMAGED: NEGATIVE FOR SQUAMOUS INTRAEPITHELIAL [...] * HIV Screening (06/10/2018) HIV Screening Abstracted us Historical Provider HEALTH MAINTENANCE Final Result * Hepatitis C Screening (06/10/2018) Hepatitis C Screening Abstracted us Historical Provider HEALTH MAINTENANCE Final Result from Last 3 Months or Most Recently Relevant to Health Maintenance Insurance [facility] Care Teams Gas Cutter Relationship Specialty Start Date End Date Issa Malave MD [address] [place] [id number] PCP - General 11/17/07
--- OUTSIDE RECORDS SUMMARY | 2025-04-20 22:32 | XMS_ITS | Clinical Summary ---
Author Organization [facility] Address [address] [facility] [address] [place] [address] Phone Care Team Providers Care Development System Efficiency Manager Name Role Phone Issa Malave MD Primary Care Provider [phone] Social History Tobacco Use Types Packs/Day Years [...] Medical Devices Not on file Care Teams Development System Efficiency Manager Relationship Specialty Start Date End Date Issa Malave MD [address] [place] [id number] PCP - General 02/25/17 Additional Source Comments The information contained in this document represents components of the legal health record. It is not the complete legal health record.[facility]
== END 2025-04-20 14:33 | disposition home or self-care (01) ==
LOC: HO.HGS 14:18
PROVIDERS: PCP Internal Medicine; Visit Provider Surgery
DX: Z90.49 Acquired absence of other specified parts of digestive tract (principal)
CPT/HCPCS: 99024

== ENCOUNTER 2025-04-24 00:18 | Emergency (ER) | payer OTHER, SELFPAY ==
--- NOTE | ~2025-04-24 | CT_ITS ---
CLINICAL HISTORY: s p lap patricia. intra ab. abscess? CT abdomen and pelvis with contrast Comparison: CT/SR - CT ABDOMEN PELVIS WO IV CON - 04/10/25 16:07 EST Findings: The lung bases are clear. The gallbladder is surgically absent. Previous gallbladder fossa drain has been removed. Postsurgical changes are present in the gallbladder fossa without focal collection. CBD stent is present and terminates in the duodenum. No biliary dilation present. Liver, spleen, bilateral adrenal glands, pancreas, and bilateral kidneys are unremarkable. No abdominal or pelvic free fluid. No retroperitoneal lymphadenopathy. Aorta is nonaneurysmal. IVC is patent. No bowel obstruction, pneumoperitoneum, or pneumatosis. Appendix is normal. Bladder and uterus are unremarkable. No acute or suspicious osseous lesions. Postsurgical changes along the umbilicus are present without focal collections. IMPRESSION: No acute intra-abdominal or pelvic findings with expected postsurgical changes in the gallbladder fossa and anterior abdominal wall status post cholecystectomy. This document has been electronically signed by: Leobardo Araiza MD on 04/24/2025 05:12:24
[2025-04-24 00:40] VITALS: BP 138/81; PULSE 102; RESP 20; TEMP 36.7; O2SAT 100; BMI 37.1
[2025-04-24 01:46] LABS: Hematocrit 38.8 % (37.0-47.0); Hemoglobin 12.6 g/dl (12.0-16.0); Imm Gran Abs Auto 0.06 X10*3/uL (0.00-0.03); Imm Gran Pct Auto 0.5 % (0.0-0.4); Lymphocytes Absolute Auto 3.7 X10*3/uL (1.2-4.9); MANUAL DIFF FLAG NO; Mean Corpuscular HGB Conc 32.5 g/dl (31.0-35.0); Mean Corpuscular Hemoglobin 27.0 pg (27.0-33.0); Mean Corpuscular Volume 83.1 fL (80.0-98.0); NRBC Abs Auto 0.000 X10*3/uL (0.0-0.012); NRBC Pct Auto 0.0 /100WBC (0.0-0.2); Platelet Count 547 X10*3/uL (160-400); Red Blood Count 4.67 X10*6/uL (4.20-5.50); White Blood Count 11.2 X10*3/uL (4.8-10.8)
--- OUTSIDE RECORDS SUMMARY | 2025-04-24 01:47 | XMS_ITS | Encounter Summary ---
Author Organization [facility] Address [address] [place] [address] Care Team Providers Care Police Sergeant Precinct Name Role Phone Issa Malave MD Primary Care Provider [phone] Reason for Visit * Reason Onset Date Comments Abdominal Pain 04/19/2025 Encounter Details Date Type Department Care Team ([facility] st Contact Info) Description 04/19/2025 Telephone Adult Medicine [facility] [address] [place] [address] Issa Malave MD [address] [place] [address] Social History Tobacco Use Types Packs/Day Years [...] traveled recently to another state outside of [place], [place], [place], [place], [place], [place], [place]? no o If yes, did you quarantine [...] gather 3rd alliance party insurance information Third Constitution Party Information: not applicable PCP: Issa Malave MD Payor: [facility] / Plan: [facility] / Product Type: *No Product type* / documented in this encounter Plan of Treatment Upcoming Encounters Date Type Department Care Team (Late st Contact Info) Description 05/02/2025 10:30 AM EST Office Visit Adult Medicine [facility] [address] [place] [phone] Issa Malave MD [address] [place] [address] documented as of this encounter Visit Diagnoses Not on filedocumented in this encounter Additional Health Concerns Assessment Noted Time PHQ-9 Depression Total Score: 0 01/08/20 25 8:00 AM EST documented as of this encounter Care Teams Police Sergeant Precinct Relationship Specialty Start Date End Date Issa Malave MD [address] [place] [address] PCP - General 11/17/07 documented as of this encounter
--- OUTSIDE RECORDS SUMMARY | 2025-04-24 01:47 | XMS_ITS | Clinical Summary ---
Author Organization [facility] Address [address] [facility] [address] [place] [address] Phone Care Team Providers Care Automotive Worker Foreman Name Role Phone Issa Malave MD Primary Care Provider [phone] Social History Tobacco Use Types Packs/Day Years [...] Medical Devices Not on file Care Teams Automotive Worker Foreman Relationship Specialty Start Date End Date Issa Malave MD [address] [place] [address] PCP - General 02/25/17 Additional Source Comments The information contained in this document represents components of the legal health record. It is not the complete legal health record.[facility]
--- OUTSIDE RECORDS SUMMARY | 2025-04-24 01:47 | XMS_ITS | Clinical Summary ---
Author Organization [facility] [address] [place] [address] [place] [address] Phone Care Team Providers Care Tire Mold Tester Name Role Phone Issa Malave MD Primary Care Provider [phone] Allergies Active Allergy Reactions Criticality Noted Date [...] Care Team Description 04/19/2025 Telephone Adult Medicine [address] [address] Issa Malave MD 04/06/2025 Telephone Adult Medicine [address], [place] [phone] Issa Malave MD from Last 3 Months Immunizations Immunization Administration Dates Next Due DTP 03/26/1993, 2,10/25/1991,08/24 [id number] (Pentacel) 2mo to less than 5yo 08/25/1991 [...] 10:30 AM EST Office Visit Adult Medicine [address] [address] Issa Malave MD [address] [place] [address] Health Maintenance Due Date Last Done Comments [...] mg/dL LAB CHEMISTRY METHOD 05/19/2024 1:12 PM [facility] Triglycerides 97 0 - 150 mg/dL LAB CHEMISTRY METHOD 05/19/2024 1:12 PM [facility] HDL 56 >=40 mg/dL LAB CHEMISTRY METHOD 05/19/2024 1:12 PM [facility] LDL Calculated 134(H) 0 - 100 mg/dL LAB CHEMISTRY METHOD 05/19/2024 1:12 PM [facility] VLDL Cholesterol Jez 19.4 mg/dL LAB CHEMISTRY METHOD 05/19/2024 1:12 PM [facility] Non HDL Chol. (LDL+VLDL) 153(H) <145 mg/dL LAB CHEMISTRY METHOD 05/19/2024 1:12 PM [facility] Chol/HDL Ratio 3.7 0.0 - 4.4 LAB CHEMISTRY METHOD 05/19/2024 1:12 PM [facility] Blood Venous blood specimen / Unknown Venipuncture / Unknown 05/19/2024 9:09 AM EST 05/19/2024 9:09 AM EST Shayan Dickerson ENGINE WIPER LAB BLOOD ORDERABLES Final R esult [facility] [address] [place] [address], * Pap smear (06/12/2018) 06/12/2018 Narrative HISTORICAL TESTING LAB RESULTING AGENCY - 06/16/2018 11:57 AM EST [id number] THINPREP PAP, IMAGED: NEGATIVE FOR SQUAMOUS INTRAEPITHELIAL [...] Most Recently Relevant to Health Maintenance Insurance [facility] Care Teams Tire Mold Tester Relationship Specialty Start Date End Date sIsa Malave MD [address] [place] [id number] PCP - General 11/17/07
[2025-04-24 01:59] LABS: Alanine Aminotransferase 33 U/L (0-31); Albumin Level 4.1 g/dL (3.5-5.0); Alkaline Phosphatase 135 U/L (39-117); Anion Gap 11 (12-20); Aspartate Amino Transferase 19 U/L (5-31); Blood Urea Nitrogen 15 mg/dL (9-16); Calcium 9.3 mg/dL (8.4-10.2); Carbon Dioxide 24 mmol/L (22-29); Chloride 107 mmol/L (96-108); Creatinine Clr Calc Pharmacy 117.3; Estimated Glomerular Filt Rate > 60; Lipase 89 U/L (8-78); Potassium 4.3 mmol/L (3.3-5.1); Sodium 138 mmol/L (135-145); Total Protein 7.5 g/dL (6.5-8.0)
[2025-04-24 02:49] VITALS: BP 119/69; PULSE 88; RESP 16; TEMP 36.8; O2SAT 100
[2025-04-24 03:05] LABS: Appearance Urine Clear; Glucose Urine UA Negative (Negative); PH 5.5 (5.0-9.0); Specific Gravity - Urine 1.020 (1.005-1.025); UMIC TRIGGER UACC YES
[2025-04-24 03:13] LABS: UACC Culture Trigger YES
[2025-04-24 04:00] VITALS: BP 119/69; PULSE 88; RESP 16; TEMP 36.8; O2SAT 100
[2025-04-24] MEDS: iohexoL 350 MG/ML 100 ML INFUS..BTL 85 ML IV (04:00)
--- NOTE | 2025-04-24 04:31 | ED.GENADULT ---
HPI - General Adult General Chief complaint: Abdominal Pain Stated complaint: abd pain post op, removed gallbladder Time Seen by Provider: 04/24/25 02:51 Source: patient Limitations: no limitations History of Present Illness ED Provider: Olga Hawkins PA-C HPI narrative: 39-year-old female now status post laparoscopic mariia cholecystectomy and lysis of adhesions on March [address] Ann, who presents with abdominal pain. Patient states she just had her TREY drain removed on 04/[address] Ann. She states that since, she has had progressive upper abdominal discomfort with radiation to her back. Associated postprandial symptoms of pain and nausea. Denies fever. Related Data Home Medications ?Medication ?Instructions ?Recorded ?Confirmed acetaminophen 325 mg capsule 325 mg PO QID PRN Pain 03/28/25 04/20/25 ascorbic acid (vitamin C) 1,000 mg 1,000 mg PO DAILY 03/28/25 04/20/25 tablet (Vitamin C) Previous Rx's ?Medication ?Instructions ?Recorded amoxicillin 500 mg-potassium 1 tab PO BID #20 tabs 04/03/25 clavulanate 125 mg tablet (Augmentin) docusate sodium 100 mg capsule 100 mg PO BID #30 caps 04/03/25 (Colace) oxycodone 5 mg tablet 5 mg PO Q4H PRN pain #20 tabs 04/03/25 oxycodone 5 mg tablet 5 mg PO Q4H PRN pain #20 tabs 04/03/25 polyethylene glycol 3350 17 17 g PO DAILY #119 grams 04/03/25 gram/dose oral powder (Miralax) ondansetron 4 mg disintegrating 4 mg PO Q8H PRN nausea and 04/10/25 tablet vomiting #14 tabs ketorolac 10 mg tablet 10 mg PO Q6H PRN pain #20 tabs 04/24/25 Allergies Allergy/AdvReac Type Severity Reaction Status Date / Time No Known Allergies Allergy Verified 04/24/25 00:44 Review of Systems Review of Systems: Yes all other systems are reviewed and are negative Constitutional: Constitutional: Denies fatigue and Denies fever(s) Cardiovascular: Cardiovascular: Denies chest pain and Denies dyspnea Respiratory: Respiratory: Denies cough and Denies dyspnea Gastrointestinal: Gastrointestinal: Reports abdominal pain, Denies diarrhea, Reports nausea and Reports vomiting Endocrine: Endocrine: Denies fatigue PMFSH Past Medical History Attestation statement: The following information was validated with the patient. Medical History History of seizures as a child Surgical History Hx of wisdom tooth extraction Hx of section Social History Social History Household Members: Family Housing: House Are you a primary toddler caregiver to a significant other at home: No Do you presently have visiting nurse or other home services: No Alcohol intake: never Patient Tobacco Use Status: Never used Tobacco Smoked in Last 30 Days: No Use of substances other than those prescribed or required for medical reasons: No Advance Directives: No Advance Directives Information Provided: No Do you have a plan to hurt others: No Plan Patient : No service: No Physical Exam ED Vital Signs: Vital Signs - 24 hr 04/24/25 00:40 04/24/25 02:49 04/24/25 04:00 Temperature 98.0 F 98.2 F 98.2 F Pulse Rate 102 H 88 88 Respiratory Rate 20 16 16 Blood Pressure 138/81 119/69 119/69 Pulse Oximetry 100 100 100 Oxygen Delivery Method Room Air Room Air Room Air BMI result Body Mass Index 37.1 Const Other: Alert well-appearing Orientation/consciousness: patient oriented x3 Resp Effort & Inspection: normal respiratory effort Cardio Other: Normal peripheral perfusion GI Other: Abdomen is soft, nondistended, mild tenderness epigastric and right upper quadrant, with a minimal guarding Skin Other: Warm dry no rash Neuro General: patient oriented x3, gait normal, no focal motor deficits and CN's II-XI intact bilaterally Psych Other: Cooperative Medications Administered Discontinued Medications Generic Name Dose Route Start Last Admin Trade Name Freq PRN Reason Stop Dose Admin Sodium Chloride 1,000 mls @ 999 mls/hr 04/24/25 03:00 04/24/25 05:05 Ns IV 04/24/25 04:00 Infused .Q1H1M WENDY Infusion Iohexol 85 ml 04/24/25 04:00 04/24/25 04:00 Iohexol 350 Mg/Ml 100 Ml Infus..Btl IV 04/24/25 04:01 85 ml ONCE ONE Administration Ketorolac Tromethamine 15 mg 04/24/25 03:38 04/24/25 04:07 Ketorolac Tromethamine 15 Mg/Ml Vial IVPUSH 04/24/25 03:39 15 mg ONCE ONE Administration Morphine Sulfate 4 mg 04/24/25 02:51 04/24/25 03:21 Morphine Sulfate 4 Mg/Ml Cartridge IVPUSH 04/24/25 02:52 Not Given ONCE ONE Protocol Ondansetron HCl 4 mg 04/24/25 02:57 04/24/25 04:07 Ondansetron Hcl 4 Mg/2 Ml Vial IVPUSH 04/24/25 02:58 4 mg ONCE ONE Administration Medical Decision Making Medical Decision Making MDM Narrative: 39-year-old female now status post laparoscopic mariia cholecystectomy and lysis of adhesions on March [address] Ann, who presents with abdominal pain. Patient states she just had her TREY drain removed on 04/[address] Ann. She states that since, she has had progressive upper abdominal discomfort with radiation to her back. Associated postprandial symptoms of pain and nausea. Denies fever. Problem: Recent surgery History: Per patient I have considered the following differential diagnoses: Intra-abdominal abscess, postsurgical complication, residual cholecystitis, gallstone pancreatitis Plan: Screening labs were completed from triage, her lipase is newly elevated. She did have concurrent cholelithiasis, perhaps she is developing gallstone pancreatitis from the residual portion of the gallbladder that was not removed. She could also have a developing intra-abdominal abscess. She needs a CT scan. She declines morphine, she is asking for Toradol for her pain. We will also give fluid and Zofran. I have independently reviewed the following tests: Labs: Slight leukocytosis, no left shift, not anemic, chronic thrombocytosis, LFTs at baseline, lipase newly elevated at 89, not , urine sample is improving CT abdomen and pelvis:IMPRESSION: No acute intra-abdominal or pelvic findings with expected postsurgical changes in the gallbladder fossa and anterior abdominal wall status post cholecystectomy. Differential Diagnosis Differential Diagnoses: The differential diagnosis associated with the presentation includes See MDM Admission/Observation Consideration of admission/observation: Escalation of care including admission/observation considered Lab Data [facility] Lab Attestation statement: I reviewed the patient's lab results. 04/24/25 01:37 04/24/25 01:37 Labs: Lab Results 04/24/25 04/24/25 Range/Units 01:37 02:51 WBC 11.2 H (4.8-10.8) X10*3/uL RBC 4.67 (4.20-5.50) X10*6/uL Hgb 12.6 (12.0-16.0) g/dl Hct 38.8 (37.0-47.0) % MCV 83.1 (80.0-98.0) fL MCH 27.0 (27.0-33.0) pg MCHC 32.5 (31.0-35.0) g/dl RDW 14.7 (11.0-16.0) % Plt Count 547 H (160-400) X10*3/uL MPV 10.2 (9.4-12.3) fL Immature Gran % (Auto) 0.5 H (0.0-0.4) % Neut % (Auto) 51.0 (45-73) % Lymph % (Auto) 33.3 (20-40) % Russell % (Auto) 9.8 (2-11) % Eos % (Auto) 4.4 H (0-4) % Baso % (Auto) 1.0 (0-2) % Lymph # (Auto) 3.7 (1.2-4.9) X10*3/uL Russell # (Auto) 1.1 (0.1-1.2) X10*3/uL Eos # (Auto) 0.5 H (0.0-0.4) X10*3/uL Baso # (Auto) 0.1 (0.0-0.2) X10*3/uL Abs Immat Gran (auto) 0.06 H (0.00-0.03) X10*3/uL Absolute Neuts (auto) 5.7 (2.0-8.3) x10*3/uL Absolute Nucleated RBC 0.000 (0.0-0.012) X10*3/uL Nucleated RBC % (auto) 0.0 (0.0-0.2) /100WBC Sodium 138 (135-145) mmol/L Potassium 4.3 (3.3-5.1) mmol/L Chloride 107 (96-108) mmol/L Carbon Dioxide 24 (22-29) mmol/L Anion Gap 11 L (12-20) BUN 15 (9-16) mg/dL Creatinine 0.64 (0.5-1.4) mg/dL Estim Creat Clear Calc 117.3 Estimated GFR > 60 Random Glucose 96 (60-115) mg/dL Lactic Acid 1.4 (0.5-2.0) mmol/L Calcium 9.3 (8.4-10.2) mg/dL Total Bilirubin 0.2 (0.0-1.0) mg/dL AST 19 (5-31) U/L ALT 33 H (0-31) U/L Alkaline Phosphatase 135 H (39-117) U/L Total Protein 7.5 (6.5-8.0) g/dL Albumin 4.1 (3.5-5.0) g/dL Lipase 89 H (8-78) U/L Beta HCG, Quant < 2 mIU/mL Urine Color Dark Yellow Urine Appearance Clear Urine pH 5.5 (5.0-9.0) Ur Specific [place] 1.020 (1.005-1.025) Urine Protein Negative (Neg-Trace) mg/dL Urine Glucose (UA) Negative (Negative) mg/dL Urine Ketones Negative (Negative) mg/dL Urine Blood Moderate (2+) H (Negative) Urine Nitrite Negative (Negative) Ur Leukocyte Esterase Small (1+) H (Negative) Urine RBC 6-10 H (0-2) /HPF Urine WBC 6-10 H (0-5) /HPF Ur Squamous Epith Cells 3-5 (0-2) /HPF Urine Bacteria None Seen (None Seen) Hyaline Casts 0-2 (0-2) /LPF Discharge Plan Discharge Clinical Impression: Constipation Patient Disposition: Home, Self-Care Instructions: Constipation (ED) Additional Instructions: There was no acute process noted on the CT scan, all of your labs were normal. You are very constipated. See home care instructions. You need to use [id number] Colace, take it twice a day. Also you need to take [id number] MiraLax, multiple times a day, you can also take it hourly, until you begin having multiple large volume bowel movements. This is a very common cause of abdominal pain. Use the ketorolac as needed for discomfort. Continue to follow up with your primary care and surgeon as needed. Prescriptions: New ketorolac 10 mg tablet 10 mg PO Q6H PRN (Reason: pain) Qty: 20 0RF Rx Instructions: maximum total duration of 5 days from all oral, intranasal, or parenteral formulations, patient received an IV dose of Toradol here in the emergency room No Action ascorbic acid (vitamin C) [Vitamin C] 1,000 mg Tablet 1,000 mg PO DAILY acetaminophen 325 mg Capsule 325 mg PO QID PRN (Reason: Pain) oxycodone 5 mg tablet 5 mg PO Q4H PRN (Reason: pain) Qty: 20 0RF Rx Instructions: Partial Fill upon patient request. docusate sodium [Colace] 100 mg capsule 100 mg PO BID Qty: 30 0RF polyethylene glycol 3350 [Miralax] 17 gram/dose powder 17 g PO DAILY Qty: 119 0RF amoxicillin-pot clavulanate [Augmentin] 500-125 mg tablet 1 tab PO BID Qty: 20 0RF oxycodone 5 mg tablet 5 mg PO Q4H PRN (Reason: pain) Qty: 20 0RF Rx Instructions: Partial Fill upon patient request. ondansetron 4 mg tablet,disintegrating 4 mg PO Q8H PRN (Reason: nausea and vomiting) Qty: 14 0RF Print Language: Spanish
[2025-04-24 05:40] VITALS: BP 108/62; PULSE 85; RESP 14; TEMP 36.8; O2SAT 98
[2025-04-24 06:00] VITALS: BP 108/62; PULSE 85; RESP 14; TEMP 36.8; O2SAT 98
== END 2025-04-24 06:09 | disposition home or self-care (01) ==
PROVIDERS: Physician Assistant Medical; Emergency Provider Emergency Medicine; PCP Internal Medicine
DX: K59.00 Constipation, unspecified (principal); R10.10 Upper abdominal pain, unspecified; Z90.49 Acquired absence of other specified parts of digestive tract; Z79.899 Other long term (current) drug therapy
CPT/HCPCS: 36415; 74177; 80053; 81001; 83605; 83690; 84702; 85025; 87040; 87086; 87147; 96361; 96374; 96375; 99284; 99285; J1885; J2405; Q9967

== ENCOUNTER → 2025-04-24 02:51 | Outpatient (BNV) | payer OTHER, SELFPAY | PROVIDERS: Emergency Provider Emergency Medicine; PCP Internal Medicine; Visit Provider Radiology Vascular & Interventional Radiology | DX: Z03.89 Encounter for observation for other suspected diseases and conditions ruled out (principal); Z90.49 Acquired absence of other specified parts of digestive tract | CPT/HCPCS: 74177 ==